=== PATIENT | female | born 1955 | race Caucasian/White ===

== ENCOUNTER 2020-09-17 12:03 | Outpatient (CLI) | payer MEDICARE, SELFPAY ==
[2020-09-17 13:03] LABS: Eosinophils Percent Auto 0.5 % (0-4.4); Hematocrit 37.4 % (37.0-47.0); Hemoglobin 12.1 g/dL (12.0-15.0); Immature Granulocyte Absolute 0.01 K/mm3 (0.00-0.031); Immature Granulocyte Percent A 0.3 % (0-0.5); Lymphocytes Absolute Auto 0.98 K/mm3 (0.9-3.2); Lymphocytes Percent Auto 26.3 % (18.3-44.2); Mean Corpuscular HGB Conc 32.4 g/dl (32-36); Mean Corpuscular Hemoglobin 30.7 pg (26-34); Mean Corpuscular Volume 94.9 fl (80-100); Mean Platelet Volume 9.4 fl (7.4-10.4); Monocytes Absolute Auto 0.4 K/mm3 (0.1-0.6); Monocytes Percent Auto 9.7 % (2.6-8.5); Neutrophils Absolute Auto 2.4 K/mm3 (1.3-6.7); Neutrophils Percent Auto 63.2 % (45.5-73.1); Platelet Count Result 182 k/mm3 (150-375); Red Blood Count 3.94 M/mm3 (4.2-5.4); Red Cell Distribution Width 13.5 % (11.5-14.5); White Blood Count 3.7 K/mm3 (4.5-10.0)
[2020-09-17 13:14] LABS: Alanine Aminotransferase 12 U/L (4-35); Alkaline Phosphatase 61 U/L (38-126); Anion Gap 5 mmol/L (8-16); Aspartate Amino Transferase 24 U/L (14-36); Bilirubin,Total 0.2 mg/dL (0.2-1.3); Blood Urea Nitrogen 13 mg/dL (7-17); Calcium 8.9 mg/dL (8.4-10.2); Carbon Dioxide 26 mmol/L (22-30); Chloride 107 mmol/L (98-107); Cholesterol 168 mg/dL (0-200); Estimated Glomerular Filt Rate > 60; Glucose 101 mg/dL (65-105); HDL Direct 53 mg/dL; Potassium 4.7 mmol/L (3.4-5.0); Sodium 138 mmol/L (137-145); Triglycerides 151 mg/dL (<150)
[2020-09-17 13:25] LABS: LDL Cholesterol Direct 88 mg/dL
[2020-09-17 13:41] LABS: Vitamin D 25 Hydroxy 31.4 ng/mL
== END 2020-09-17 12:04 | disposition home or self-care (01) ==
PROVIDERS: PCP Internal Medicine; Visit Provider Clinical Nurse Specialist
DX: E61.1 Iron deficiency (principal); I10 Essential (primary) hypertension; I70.90 Unspecified atherosclerosis; E55.9 Vitamin D deficiency, unspecified
CPT/HCPCS: 36415; 80053; 80061; 82306; 85025

== ENCOUNTER 2020-09-30 16:20 | Outpatient (CLI) | payer MEDICARE, SELFPAY | END 2020-09-30 16:21 | disposition home or self-care (01) | LOC: ANHCOVIDVC 16:20 | PROVIDERS: PCP Internal Medicine | DX: Z23 Encounter for immunization (principal) | CPT/HCPCS: 0001A; 91300 ==

== ENCOUNTER 2020-10-05 15:36 | Outpatient (CLI) | payer MEDICARE, SELFPAY ==
--- NOTE | ~2020-10-05 | CT_ITS ---
EXAMINATION: CT diagnostic chest w con DATE: 10/05/2020 16:16 INDICATION: Solitary pulmonary nodule TECHNIQUE: Computed tomography (CT) of the chest was performed with 75 cc Omnipaque 350 intravenous c ontrast. Automated exposure control and iterative reconstruction technique were employed. Exam dose: 163.79 mGy-cm total exam DLP. COMPARISON: September 17, 2017 portable AP chest FINDINGS: Mild emphysematous changes are noted. No hilar or mediastinal mass lesion or lymphadenopathy. No thoracic aortic aneurysm or dissection. There is a calcified middle lobe pulmonary granuloma. No suspicious pulmonary mass lesion is evident. No pulmonary infiltrate or consolidation. Normal heart size. No pericardial or pleural effusion. Status post cholecystectomy. Diffuse hepatic steatosis. Surgical clips, left upper quadrant. Normal morphology of the adrenal glands. IMPRESSION: Old pulmonary granulomatous disease Emphysema Status post cholecystectomy Hepatic steatosis Reviewed, dictated and finalized at [facility]. Reviewed, dictated and finalized at [facility].
== END 2020-10-05 15:37 | disposition home or self-care (01) ==
PROVIDERS: PCP Internal Medicine; Visit Provider Clinical Nurse Specialist
DX: R91.1 Solitary pulmonary nodule (principal); K76.0 Fatty (change of) liver, not elsewhere classified; J43.9 Emphysema, unspecified; Z90.49 Acquired absence of other specified parts of digestive tract
CPT/HCPCS: 71260; Q9967

== ENCOUNTER → 2020-10-09 01:14 | Outpatient (CLI) | payer MEDICARE, SELFPAY ==
[2020-10-09 19:13] LABS: SARS-CoV-2 RNA PCR Negative
== END ==
PROVIDERS: PCP Internal Medicine; Visit Provider Surgery
DX: Z01.812 Encounter for preprocedural laboratory examination (principal); Z20.822 Contact with and (suspected) exposure to COVID-19
CPT/HCPCS: C9803; U0003; U0005

== ENCOUNTER 2020-10-12 01:46 | Day surgery (SDC) | payer MEDICARE, SELFPAY ==
[2020-10-06 09:20] VITALS: BMI 25.7
--- NOTE | 2020-10-12 11:42 | ECG_ITS ---
Measurements Intervals Helper Rate: 65 P: 50 MT: 126 QRS: 74 QRSD: 75 T: 69 QT: 388 QTc: 406 Interpretive Statements SINUS RHYTHM BASELINE ARTIFACT- II, III, AVR, AVF NORMAL ECG Electronically Signed On 10-12-2020 13:57:40 CDT by Kristopher Locke D.O.
--- NOTE | 2020-10-12 11:50 | PM.HPGS ---
History of Present Illness History of Present Illness Consent: Risks, benefits, and alternatives of removal of a catherine-cath under sedation wiht local anesthesia have been discussed and questions answered. Patient agrees to proceed with procedure. Chief complaint: STEVEN Narrative: Hunter Garcia is a 65 year old female who has had a Port-A-Cath for several years due to need for transfusions and iron infusions because of GI blood loss related to GI hemangiomas. She apparently has had multiple colonic angiodysplasias which have been cauterized. Her last colonoscopy was about a year ago. Last time she had the poor use was about a year ago. She states she did realize that the port needs to be flushed every 4-6 weeks so it has not for some time period Review of Systems Constitutional: Constitutional: Reports no additional constitutional complaints, Reports fatigue and Denies malaise Eyes: Eyes: Denies change in vision and Denies loss of vision ENT: Reports Normal hearing present, Denies change in voice, Denies dizziness, Denies hoarseness and Denies sore throat Cardiovascular: Cardiovascular: Denies chest pain, Denies leg edema and Denies dyspnea Respiratory: Respiratory: Denies cough, Denies dyspnea and Denies wheezing Gastrointestinal: Gastrointestinal: Denies hematochezia, Denies change in bowel habits and Denies heartburn Genitourinary: Genitourinary: Denies urinary frequency and Denies urinary incontinence Neurologic: Reports Normal hearing present, Denies confusion, Denies dizziness, Denies loss of vision, Denies memory loss and Denies seizure-like activity Psychiatric: Psychiatric: Denies confusion, Denies depression and Denies memory loss Endocrine: Endocrine: Denies cold intolerance and Reports fatigue Hematologic/Lymphatic: Hematologic/Lymphatic: Denies easy bleeding, Denies easy bruising and Reports other (History of recurrent anemia) Comments: Needed an iron infusions to help with her anemia. Therefore had a port placed several years back. Has not had to have any transfusions or iron infusions over the last year. Allergic/Immunologic: Allergic/Immunologic: Denies wheezing PMFSH Past Medical History Medical History Anal disorder 1994 Atherosclerosis Blood clotting disorder Carotid stenosis Cholecystectomy planned 1977 Chronic pain Diarrhea Dizziness Femoral artery stenosis Fibromyalgia H/O fracture H/O one miscarriage Heart disease Hemorrhoids Hernia 2001 History of nervous system or sense organ disease Hypertension Insomnia Iron deficiency Kidney stones Major depressive disorder Mycosis fungoides Osteoarthritis Skin disorder Stroke TIA (transient ischemic attack) Vertigo Surgical History Surgical History H/O elbow surgery 1983 H/O shoulder surgery 1976 H/O wrist surgery 1984 H/O: hysterectomy 1994 History of atherectomy 1979 History of hip replacement Previous back surgery Plates and screws in back Status post femoropopliteal bypass surgery Family History Family History Mother Family history of chronic obstructive pulmonary disease Sibling Breast cancer Cancer of kidney Other Family history of malignant neoplasm Hypertension Social History Social History Smoking packs per day: 1 Smoking cigarettes per day: 20.0 Years smoked: 20 Smoking pack-years: 20.00 Smoking status: Former smoker Tobacco type: cigarettes Smoking end date: 07/23/13 Alcohol intake: current Substance use: never Living arrangements: alone Spiritual care concerns: No Meds Home Medications and Allergies Home Medications Medication Instructions Recorded Confirmed Type aspirin 81 mg tablet,delayed 81 mg PO DAILY 07/14/19 10/12/20 History release
[2020-10-12] MEDS: LACTATED RINGERS 1,000 ML 30 ML IV CONT (12:00)
--- NOTE | 2020-10-12 12:14 | WPDANESEPPF ---
Anes - Initial Pre Proc Eval Procedure: Operation Date: 10/12/20 13:30 Proposed Procedures p Removal Lara Cath - Atif Sims MD Date/Time: 10/12/20 12:14 Surgeon: Atif Sims MD Pre Op Diagnosis: STEVEN Patient Data Age: 65 Gender: F Height: 1.59 m Weight: 65 kg Allergies Allergy/AdvReac Type Severity Reaction Status Date / Time METOCLOPRAMIDE HCL AdvReac Severe ANXIETY Uncoded 10/12/20 11:32 Home Medications Medication Instructions Recorded Confirmed Type aspirin 81 mg tablet,delayed 81 mg PO DAILY 07/14/19 10/12/20 History release trazodone 50 mg tablet 50 mg PO HS tablet 10/21/19 10/12/20 History clopidogrel 75 mg tablet 75 mg PO DAILY #90 tablet 09/02/20 10/12/20 Rx cyclobenzaprine 10 mg tablet 10 mg PO TID PRN #30 tablet 09/23/20 10/12/20 Rx lisinopril 20 mg tablet 20 mg PO DAILY #90 tablet 09/23/20 10/12/20 Rx lorazepam 0.5 mg tablet 0.5 mg PO TID PRN 09/23/20 10/12/20 History paroxetine HCl 20 mg tablet 40 mg PO DAILY tablet 09/23/20 10/12/20 History promethazine 25 mg tablet 25 mg PO DAILY PRN #30 tablet 09/23/20 10/12/20 Rx Patient hx anesthesia problems: none Family hx anesthesia problems: none PMFSH Past Medical History Medical History (Updated 09/23/20 @ 15:42 by DANTE IslasP-C) Anal disorder 1994 Atherosclerosis Blood clotting disorder Carotid stenosis Cholecystectomy planned 1977 Chronic pain Diarrhea Dizziness Femoral artery stenosis Fibromyalgia H/O fracture H/O one miscarriage Heart disease Hemorrhoids Hernia 2002 History of nervous system or sense organ disease Hypertension Insomnia Iron deficiency Kidney stones Major depressive disorder Mycosis fungoides Osteoarthritis Skin disorder Stroke TIA (transient ischemic attack) Vertigo Surgical History Surgical History (Updated 07/14/19 @ 15:07 by Marga Bearden [facility]) H/O elbow surgery 1983 H/O shoulder surgery 1976 H/O wrist surgery 1984 H/O: hysterectomy 1994 History of atherectomy 1979 History of hip replacement Previous back surgery Plates and screws in back Status post femoropopliteal bypass surgery Family History Family History (Updated 07/11/19 @ 12:20 by Marga Bearden [facility]) Mother Family history of chronic obstructive pulmonary disease Sibling Breast cancer Cancer of kidney Other Family history of malignant neoplasm Hypertension Social History Social History (Updated 09/23/20 @ 13:16 by Marga Bearden [facility]) Smoking packs per day: 1 Smoking cigarettes per day: 20.0 Years smoked: 20 Smoking pack-years: 20.00 Smoking status: Former smoker Tobacco type: cigarettes Smoking end date: 07/23/13 Alcohol intake: current Substance use: never Living arrangements: alone Spiritual care concerns: No Anes - Eval Final PreProcedure Day of Procedure 10/12/20 12:14 Patient weight: overweight Heart: regular rate and rhythm Lungs: clear to auscultation and normal air movement Airway: Mallampati scale class II and special considerations poor dentition Neurological: alert and oriented Last oral intake: >/= 8 hours ASA classification: III Emergent: no Anesthetic plan: proceed Anesthesia type and monitoring: general GIVS and standard monitoring Informed Consent: The patient's anesthetic plan and its attendant risks and benefits were discussed with the patient/family/POA. Questions were solicited and answers provided to the satisfaction of the patient/family/POA.
[2020-10-12 12:15] VITALS: BP 104/59; PULSE 66; RESP 16; TEMP 36.8; O2SAT 97
--- NOTE | 2020-10-12 12:56 | WPDHPUPDATE1 ---
History and Physical Update Update Date/Time: 10/12/20 12:56 History and Physical has been reviewed, including an updated exam of the patient. There are NO changes in the patient's condition. Risks, benefits, and alternatives have been discussed and questions answered. Patient agrees to proceed with procedure.
[2020-10-12 13:56] VITALS: BP 94/56; PULSE 64; RESP 18; O2SAT 98
--- NOTE | 2020-10-12 13:58 | P.OP_ITS ---
Procedure Note - Detailed Date of procedure: 10/12/20 Pre-op diagnosis: STEVEN Indwelling Port-A-Cath Post-op diagnosis: same Procedure performed: Removal of Port-A-Cath Description of procedure: Prior to the procedure the patient was seen in the holding area and the area of proposed surgery was marked. All questions were answered and the patient wished to proceed with removal of the Port-A-Cath. The patient was brought to the operating room and placed supine. Nurse bilingual loan processor established monitored anesthesia care with some IV sedation The entire right neck, chest, and shoulder were prepped with chlorhexidine. The area was draped off. Time-out was performed confirming patient and site of surgery. Following this a 15 blade knife was used to make incision directly on the scar from the previous port placement. This was done after infiltrating local anesthetic into the area of and inferior to the scar and into the area of the pocket containing the port to some degree using 1% xylocaine with epinep hrine. Following this we carefully dissected down to the junction of the port and catheter. Bovie cautery with needle-tip was used to carefully incise the capsule around the port and free up the scar tissue around the junction of the port and catheter. Two Prolene sutures that were holding the port to the underlying fascia were carefully excised with a 15 blade knife and mosquito hemostats. Following this the port was brought up and out of the pocket. Then watching the patient's respirations I carefully removed the catheter in one smooth pull while applying pressure in the lower right neck area at the catheter exit site as the patient was breathing out. Pressure was held for 1 minute. I used Bovie cautery on some the subcutaneous tissues as we waited for good clotting. Again hemostasis was checked in the wound using Bovie cautery for superficial hemostasis in the subcutaneous tissues. Following this closure was obtained with 2 layers. I used buried subcutaneous sutures of 3-0 Vicryl in the subcutaneous layer followed by a running subcuticular closure of 4-0 Monocryl on the skin. Patient tolerated the procedure well. Estimated blood loss was 2 cc Sponge, needle, and instrument counts were correct at the end the procedure and patient was taken to the outpatient recovery area in good condition. Implants: none Anesthesia: MAC and local ( 2% xylocaine with epinephrine) Surgeon: Atif Sims MD Records Technician: SOFIA Ceballos, OR 1st assist Estimated blood loss (mL): 2 Drains: No Packing: No Pathology: none sent Complications: No immediate complications Condition: stable Disposition: other ( outpatient recovery area) Findings: unremarkable port and catheter that were intact.
[2020-10-12 14:15] VITALS: BP 99/77; PULSE 67; RESP 18; O2SAT 97
[2020-10-12 14:30] VITALS: BP 124/54; PULSE 71; RESP 18
== END 2020-10-12 14:39 | disposition home or self-care (01) ==
PROVIDERS: PCP Internal Medicine; Visit Provider Surgery
PROC: (CPT 36589; principal; 2020-10-12 13:30)
DX: Z45.2 Encounter for adjustment and management of vascular access device (principal); D50.9 Iron deficiency anemia, unspecified; I11.9 Hypertensive heart disease without heart failure; I25.10 Atherosclerotic heart disease of native coronary artery without angina pectoris; M79.7 Fibromyalgia; M19.90 Unspecified osteoarthritis, unspecified site; F41.8 Other specified anxiety disorders; E55.9 Vitamin D deficiency, unspecified; Z86.73 Personal history of transient ischemic attack (TIA), and cerebral infarction without residual deficits; Z87.891 Personal history of nicotine dependence; Z79.02 Long term (current) use of antithrombotics/antiplatelets; Z79.82 Long term (current) use of aspirin
CPT/HCPCS: 36590; 93005; C9803; J2250; J2704; J7120; U0003; U0005

== ENCOUNTER 2020-10-21 15:49 | Outpatient (CLI) | payer MEDICARE, SELFPAY | END 2020-10-21 15:50 | disposition home or self-care (01) | LOC: ANHCOVIDVC 15:53 | PROVIDERS: PCP Internal Medicine | DX: Z23 Encounter for immunization (principal) | CPT/HCPCS: 0002A; 91300 ==

== ENCOUNTER 2020-10-26 15:50 | Outpatient (CLI) | payer MEDICARE, SELFPAY ==
--- NOTE | ~2020-10-26 | MR_ITS ---
EXAMINATION: MR lumbar spine wo con DATE: 10/26/2020 17:04 INDICATION: Lumbago. TECHNIQUE: Magnetic resonance imaging (MRI) of the lumbar spine was performed without intravenous con trast. Sequences included sagittal T2-weighted FSE, sagittal STIR FSE, sagittal T1-weighted FSE, and axial T2-weighted FSE. COMPARISON: Lumbar spine radiographs 06/12/16 FINDINGS: There is 4 degrees dextrocurvature of lumbar spine. There is 3 mm retrolisthesis of L2 on L 3. There is mild chronic anterior wedging of T11 vertebral body. There are changes of posterior fusio n procedure at L4-L5 with pedicle screws. There are changes of anterior fusion procedure at L4-L5 wit h interbody device. There is mildly decreased disc height at L2-L3 and moderately decreased disc heig ht at L3-L4 and L5-S1. The distal spinal cord signal intensity is normal. The conus medullaris is at L1. The following disc levels are specifically discussed: L1-L2: The disc does not extend beyond the endplate margin. There is mild bilateral facet joint osteo arthritis. There is no neural foraminal stenosis. There is no central canal stenosis. L2-L3: The disc is bulging. There is moderate bilateral facet joint osteoarthritis. There is mild mitzi ateral neural foraminal stenosis. There is mild central canal stenosis. L3-L4: The disc is bulging and has an annular fissure. There is severe bilateral facet joint osteoart hritis. There is moderate bilateral neural foraminal stenosis. There is mild central canal stenosis w ith posterior decompression. L4-L5: There is mild bilateral facet joint hypertrophy. There is no neural foraminal stenosis. There is no central canal stenosis. L5-S1: The disc is bulging. There is severe right and moderate left facet joint osteoarthritis. There is moderate right and mild left neural foraminal stenosis. There is no central canal stenosis. IMPRESSION: 1. Moderate lumbar spondylosis. 2. Anterior and posterior fusion procedures at L4-L5. Reviewed, dictated and finalized at [facility].
== END 2020-10-26 15:51 | disposition home or self-care (01) ==
PROVIDERS: PCP Internal Medicine; Visit Provider Nurse Practitioner Family
DX: M47.896 Other spondylosis, lumbar region (principal); Z98.1 Arthrodesis status
CPT/HCPCS: 72148

== ENCOUNTER 2021-09-27 09:24 | Outpatient (CLI) | payer MEDICARE, SELFPAY ==
[2021-09-27 09:59] LABS: Eosinophils Percent Auto 0.7 % (0-4.4); Hematocrit 36.4 % (37.0-47.0); Hemoglobin 10.2 g/dL (12.0-15.0); Immature Granulocyte Absolute 0.03 K/mm3 (0.00-0.031); Immature Granulocyte Percent A 0.5 % (0-0.5); Lymphocytes Percent Auto 20.4 % (18.3-44.2); Mean Corpuscular Hemoglobin 22.3 pg (26-34); Mean Corpuscular Volume 79.5 fl (80-100); Mean Platelet Volume 9.2 fl (7.4-10.4); Monocytes Absolute Auto 0.5 K/mm3 (0.1-0.6); Monocytes Percent Auto 9.2 % (2.6-8.5); Neutrophils Absolute Auto 4.1 K/mm3 (1.3-6.7); Neutrophils Percent Auto 69.2 % (45.5-73.1); Platelet Count Result 179 k/mm3 (150-375); Red Blood Count 4.58 M/mm3 (4.2-5.4); Red Cell Distribution Width 21.3 % (11.5-14.5); White Blood Count 5.9 K/mm3 (4.5-10.0)
[2021-09-27 10:11] LABS: Alanine Aminotransferase 14 U/L (4-35); Albumin Level 4.3 g/dL (3.5-5.1); Alkaline Phosphatase 73 U/L (38-126); Anion Gap 7 mmol/L (8-16); Aspartate Amino Transferase 28 U/L (14-36); Bilirubin,Total 0.2 mg/dL (0.2-1.3); Blood Urea Nitrogen 13 mg/dL (7-17); Carbon Dioxide 26 mmol/L (22-30); Chloride 109 mmol/L (98-107); Estimated Glomerular Filt Rate > 60; Glucose 117 mg/dL (65-110); Potassium 4.3 mmol/L (3.4-5.0); Sodium 142 mmol/L (137-145)
[2021-09-27 10:34] LABS: Anisocytosis 1+ (NORMAL); Ovalocytes 1+ (NORMAL); Platelet Estimate Adequate (Adequate)
[2021-09-27 11:09] LABS: Vitamin D 25 Hydroxy 28.5 ng/mL
[2021-09-27 11:25] LABS: Ferritin 5.67 ng/mL (11.1-264)
== END 2021-09-27 09:25 | disposition home or self-care (01) ==
PROVIDERS: PCP Internal Medicine; Visit Provider Clinical Nurse Specialist
DX: D64.9 Anemia, unspecified (principal); E55.9 Vitamin D deficiency, unspecified
CPT/HCPCS: 36415; 80053; 82306; 82728; 85025

== ENCOUNTER 2021-11-09 00:42 | Day surgery (SDC) | payer MEDICARE, SELFPAY ==
[2021-10-31 12:55] VITALS: BMI 25.2
--- NOTE | 2021-11-09 09:12 | WPDANESEPPF ---
Anes - Initial Pre Proc Eval Procedure: Operation Date: 11/09/21 12:30 Proposed Procedures p Esophagogastroduodenoscopy & Colonoscopy - Diogo Noble MD Date/Time: 11/09/21 09:12 Surgeon: Diogo Noble MD Pre Op Diagnosis: STEVEN, AVM Patient Data Age: 66 Gender: F Height: 1.59 m Weight: 63.5 kg Allergies Allergy/AdvReac Type Severity Reaction Status Date / Time No Known Allergies Allergy Verified 11/09/21 11:26 Home Medications Medication Instructions Recorded Confirmed Type aspirin 81 mg tablet,delayed 81 mg PO DAILY 07/14/19 10/31/21 History release trazodone 50 mg tablet 50 mg PO HS tablet 10/21/19 10/31/21 History lorazepam 0.5 mg tablet 0.5 mg PO TID PRN 09/23/20 10/31/21 History albuterol sulfate 90 mcg/actuation 2 inh INHALATION Q4H PRN #8.5 g 01/25/21 10/31/21 Rx aerosol inhaler promethazine 25 mg tablet 25 mg PO DAILY PRN #30 tablet 09/07/21 10/31/21 Rx clopidogrel 75 mg tablet See Rx Instructions .ROUTE 10/27/21 10/31/21 Rx .COMPLEX #90 tablet paroxetine HCl 10 mg PO DAILY 10/31/21 10/31/21 History paroxetine HCl 40 mg PO DAILY 10/31/21 10/31/21 History Patient hx anesthesia problems: none Family hx anesthesia problems: none Results Review: All pre-operative results and documents have been reviewed as part of the pre-operative evaluation. [facility] Past Medical History Medical History Anal disorder 1994 Anemia Atherosclerosis AVM (arteriovenous malformation) AVM (arteriovenous malformation) of colon Blood clotting disorder Carotid stenosis Cholecystectomy planned 1977 Chronic pain Diarrhea Dizziness Encounter for venous access device care Port or catheter 2019 Femoral artery stenosis Bypass 2011 3 Stents in right leg Fibromyalgia GERD (gastroesophageal reflux disease) GI bleeding Secondary to AVMs H/O fracture H/O one miscarriage Heart disease Hemorrhoids Hernia 2001 History of nervous system or sense organ disease Histrionic behavior Hypertension (Unknown) Insomnia Iron deficiency Iron deficiency anemia Kidney stones Major depressive disorder Mycosis fungoides Osteoarthritis Pancreatitis Peripheral arterial disease with history of revascularization PVD (peripheral vascular disease) Rectal cancer Chemo and radiation [id number] Skin disorder Stroke TIA (transient ischemic attack) Vertigo Surgical History Surgical History H/O elbow surgery Right 1983 H/O shoulder surgery Right 1976 H/O wrist surgery 1984 H/O: hysterectomy 1994 History of atherectomy 1979 History of fundoplication For Chaves's Esophagus 2003 History of hip replacement Right 2012 Previous back surgery Plates and screws in back S/P insertion of iliac artery stent 02/2017 S/P peripheral artery angioplasty with stent placement Status post femoropopliteal bypass surgery Family History Family History Mother Family history of chronic obstructive pulmonary disease Sibling Breast cancer Cancer of kidney Grandparent Stomach cancer Other Family history of malignant neoplasm Hypertension Social History Social History Smoking packs per day: 1 Smoking cigarettes per day: 20.0 Years smoked: 20 Smoking pack-years: 20.00 Smoking status: Former smoker Tobacco type: cigarettes Smoking end date: 07/23/13 Alcohol intake: current Alcohol use details: Pt drinks occasionally. Substance use: current Substance use type: marijuana Other substance usage details: MEDICAL CARD- SMOKES-USES FOR PAIN EVERY DAY SEVERAL TIMES A DAY Living arrangements: with family Spiritual care concerns: No Anes - Eval Final PreProcedure Day of Procedure 11/09/21 09:12 Patient weight: normal Heart: regular rate
[2021-11-09] MEDS: LACTATED RINGERS 1,000 ML 150 ML IV CONT (11:15)
[2021-11-09 11:27] VITALS: BP 178/79; PULSE 72; RESP 20; TEMP 36.8; O2SAT 100
[2021-11-09] MEDS: PROMETHAZINE HCL 25 MG/ML AMPUL 12.5 MG IV PUSH (11:40)
--- NOTE | 2021-11-09 12:11 | PM.HPGS ---
History of Present Illness History of Present Illness Consent: Risks, benefits, and alternatives have been discussed and questions answered. Patient agrees to proceed with procedure. Chief complaint: STEVEN, AVM Narrative: Hunter Garcia is a 66 year old female with steven without overt gib on asa and plavix. She has remote anal cancer ~ 30 years ago treated with chemotherapy and radiation, also pancreatitis and chronic GI issues, she was told in the past that had bleeding from AVM and treated with colonoscopy 2-3 years ago, last EGD in record was normal in 2018 from [facility] Review of Systems Constitutional: Constitutional: Denies headache(s) and Denies weakness Eyes: Eyes: Denies blurry vision ENT: Reports Normal hearing present, Denies headache(s) and Denies neck pain Cardiovascular: Cardiovascular: Denies chest pain and Denies dyspnea Respiratory: Respiratory: Denies dyspnea Gastrointestinal: Gastrointestinal: Reports no additional gastrointestinal complaints Genitourinary: Genitourinary: Denies dysuria Musculoskeletal: Musculoskeletal: Denies neck pain Integumentary/Breasts: Skin/Breast: Denies dry skin Neurologic: Reports Normal hearing present, Denies headache(s) and Denies weakness Psychiatric: Psychiatric: Denies anxiety Endocrine: Endocrine: Denies change in body appearance Hematologic/Lymphatic: Hematologic/Lymphatic: Denies easy bleeding Allergic/Immunologic: Allergic/Immunologic: Denies urticaria PMFSH Past Medical History Medical History Anal disorder 1994 Anemia Atherosclerosis AVM (arteriovenous malformation) AVM (arteriovenous malformation) of colon Blood clotting disorder Carotid stenosis Cholecystectomy planned 1977 Chronic pain Diarrhea Dizziness Encounter for venous access device care Port or catheter 2019 Femoral artery stenosis Bypass 2012 3 Stents in right leg Fibromyalgia GERD (gastroesophageal reflux disease) GI bleeding Secondary to AVMs H/O fracture H/O one miscarriage Heart disease Hemorrhoids Hernia 2002 History of nervous system or sense organ disease Histrionic behavior Hypertension (Unknown) Insomnia Iron deficiency Iron deficiency anemia Kidney stones Major depressive disorder Mycosis fungoides Osteoarthritis Pancreatitis Peripheral arterial disease with history of revascularization PVD (peripheral vascular disease) Rectal cancer Chemo and radiation [id number] Skin disorder Stroke TIA (transient ischemic attack) Vertigo Surgical History Surgical History H/O elbow surgery Right 1983 H/O shoulder surgery Right 1977 H/O wrist surgery 1984 H/O: hysterectomy 1994 History of atherectomy 1980 History of fundoplication For Chaves's Esophagus 2003 History of hip replacement Right 2012 Previous back surgery Plates and screws in back S/P insertion of iliac artery stent 02/2017 S/P peripheral artery angioplasty with stent placement Status post femoropopliteal bypass surgery Family History Family History Mother Family history of chronic obstructive pulmonary disease Sibling Breast cancer Cancer of kidney Grandparent Stomach cancer Other Family history of malignant neoplasm Hypertension Social History Social History Smoking packs per day: 1 Smoking cigarettes per day: 20.0 Years smoked: 20 Smoking pack-years: 20.00 Smoking status: Former smoker Tobacco type: cigarettes Smoking end date: 07/23/13 Alcohol intake: current Alcohol use details: Pt drinks occasionally. Substance use: current Substance use type: marijuana Other substance usage details: MEDICAL CARD- SMOKES-USES FOR PAIN EVERY DAY SEVERAL TIMES A DAY Living arrangements: with family Spiritual care concerns: No Meds H
--- NOTE | 2021-11-09 12:29 | SUR.OPER ---
EGD ENDED AT 1223, COLONOSCOPY BEGAN AT 1229.
[2021-11-09 12:57] VITALS: BP 166/87; PULSE 74; RESP 21; O2SAT 100
[2021-11-09 13:07] VITALS: BP 177/82; PULSE 73; RESP 17; O2SAT 98
[2021-11-09 13:17] VITALS: BP 172/79; PULSE 70; RESP 19; O2SAT 97
== END 2021-11-09 13:35 | disposition home or self-care (01) ==
PROVIDERS: PCP Internal Medicine; Visit Provider Internal Medicine Gastroenterology
PROC: 0DJ08ZZ Inspection of Upper Intestinal Tract, Via Natural or Artificial Opening Endoscopic (ICD-10-PCS; CPT 43235; principal; 2021-11-09 12:30)
DX: D50.0 Iron deficiency anemia secondary to blood loss (chronic) (principal); D12.0 Benign neoplasm of cecum; D12.2 Benign neoplasm of ascending colon; Q27.33 Arteriovenous malformation of digestive system vessel; Z85.048 Personal history of other malignant neoplasm of rectum, rectosigmoid junction, and anus; K21.9 Gastro-esophageal reflux disease without esophagitis; M79.7 Fibromyalgia; I11.9 Hypertensive heart disease without heart failure; F32.9 Major depressive disorder, single episode, unspecified; I73.9 Peripheral vascular disease, unspecified; Z86.73 Personal history of transient ischemic attack (TIA), and cerebral infarction without residual deficits; Z92.21 Personal history of antineoplastic chemotherapy; Z92.3 Personal history of irradiation; Z95.820 Peripheral vascular angioplasty status with implants and grafts; Z79.82 Long term (current) use of aspirin; Z79.02 Long term (current) use of antithrombotics/antiplatelets; Z79.51 Long term (current) use of inhaled steroids; Z87.891 Personal history of nicotine dependence; F12.90 Cannabis use, unspecified, uncomplicated
CPT/HCPCS: 45385; 45381; 45388; 43270; 88305; J2550; J2704; J7120

== ENCOUNTER 2023-02-23 10:07 | Outpatient (CLI) | payer MEDICARE, SELFPAY ==
[2023-02-23 14:23] LABS: Eosinophils Percent Auto 0.4 % (0-4.4); Hematocrit 41.5 % (37.0-47.0); Hemoglobin 12.6 g/dL (12.0-15.0); Immature Granulocyte Absolute 0.01 K/mm3 (0.00-0.031); Immature Granulocyte Percent A 0.2 % (0-0.5); Immature Reticulocyte Fraction 19.4 % (3.0-15.9); Lymphocytes Absolute Auto 1.18 K/mm3 (0.9-3.2); Lymphocytes Percent Auto 22.9 % (18.3-44.2); Mean Corpuscular HGB Conc 30.4 g/dl (32-36); Mean Corpuscular Hemoglobin 28.2 pg (26-34); Mean Corpuscular Volume 92.8 fl (80-100); Mean Platelet Volume 9.8 fl (7.4-10.4); Monocytes Absolute Auto 0.5 K/mm3 (0.1-0.6); Monocytes Percent Auto 9.5 % (2.6-8.5); Neutrophils Absolute Auto 3.5 K/mm3 (1.3-6.7); Platelet Count Result 221 k/mm3 (150-375); Red Blood Count 4.47 M/mm3 (4.2-5.4); Red Cell Distribution Width 17.1 % (11.5-14.5); Reticulocyte Hemoglobin Conten 30.3 pg (28.2-35.7); Reticulocyte Percent 2.15 % (0.7-4.3); White Blood Count 5.2 K/mm3 (4.5-10.0)
[2023-02-23 14:37] LABS: Alanine Aminotransferase 19 U/L (6-35); Albumin Level 4.3 g/dL (3.5-5.1); Alkaline Phosphatase 62 U/L (38-126); Anion Gap 5 mmol/L (8-16); Aspartate Amino Transferase 50 U/L (14-36); Bilirubin,Total 0.2 mg/dL (0.2-1.3); Blood Urea Nitrogen 11 mg/dL (7-17); Carbon Dioxide 28 mmol/L (22-30); Chloride 103 mmol/L (98-107); Cholesterol 179 mg/dL (0-200); Estimated Glomerular Filt Rate > 60; Glucose 95 mg/dL (65-110); HDL Direct 55 mg/dL; Potassium 4.2 mmol/L (3.4-5.0); Sodium 136 mmol/L (137-145); Triglycerides 174 mg/dL (<150)
[2023-02-23 14:48] LABS: LDL Cholesterol Direct 86 mg/dL
[2023-02-23 15:07] LABS: Iron 42 ug/dL (37-170); Vitamin D 25 Hydroxy 34.1 ng/mL
[2023-02-23 15:11] LABS: Percent Iron Saturation 9 % (20-50)
[2023-02-23 15:41] LABS: Ferritin 7.08 ng/mL (11.1-264)
== END 2023-02-23 10:08 | disposition home or self-care (01) ==
LOC: ANHGOSHLAB 10:08
PROVIDERS: PCP Internal Medicine; Visit Provider Clinical Nurse Specialist
DX: D64.9 Anemia, unspecified (principal); I10 Essential (primary) hypertension; E55.9 Vitamin D deficiency, unspecified; G47.00 Insomnia, unspecified
CPT/HCPCS: 36415; 80053; 80061; 82306; 82728; 83540; 83550; 84443; 85025; 85046

== ENCOUNTER 2023-03-09 14:22 | Outpatient (CLI) | payer MEDICARE, SELFPAY ==
--- NOTE | ~2023-03-09 | CT_ITS ---
EXAMINATION:CT diagnostic chest w con DATE: 03/09/2023 14:51 INDICATION: Solitary pulmonary nodule. TECHNIQUE: Computed tomography (CT) of the chest was performed with 75 mL Omnipaque 350 intravenous c ontrast. Automated exposure control and iterative reconstruction technique were employed. The dose-le ngth product (DLP) was 144.83 mGy-cm. COMPARISON: Chest CT 10/05/2020 FINDINGS: There is mild emphysema. There is a 5 mm nodule in right middle lobe that previously measur ed 3 mm. There is a stable 6 mm nodule at the minor fissure. There is a stable 4 mm nodule at left ma sirisha fissure. A calcified right lung nodule is consistent with old granulomatous disease. There is mil d atelectasis bilaterally. No pleural effusion. The heart size is normal. No pericardial effusion. Th ere are changes of cholecystectomy. Aortic atherosclerosis is noted. There are surgical clips around the gastroesophageal junction. There is moderate thoracic and cervical spondylosis. IMPRESSION: 1. Worsened 5 mm nodule in right middle lobe, probably benign. Noncontrast low-dose chest CT is recom mended in 6 months. 2. Mild emphysema. Reviewed, dictated and finalized at location [facility]. IMPRESSION: 1. Worsened 5 mm nodule in right middle lobe, probably benign. Noncontrast low- dose chest CT is recommended in 6 months. 2. Mild emphysema.
== END 2023-03-09 14:23 | disposition home or self-care (01) ==
PROVIDERS: PCP Internal Medicine; Visit Provider Clinical Nurse Specialist
DX: R91.1 Solitary pulmonary nodule (principal); R63.4 Abnormal weight loss; Z72.0 Tobacco use; J43.9 Emphysema, unspecified
CPT/HCPCS: 71260; Q9967

== ENCOUNTER 2023-04-06 13:52 | Outpatient (CLI) | payer MEDICARE, SELFPAY ==
[2023-04-06 14:41] LABS: Alanine Aminotransferase 18 U/L (6-35); Albumin Level 4.2 g/dL (3.5-5.1); Alkaline Phosphatase 66 U/L (38-126); Amylase 85 U/L (30-110); Aspartate Amino Transferase 34 U/L (14-36); Bilirubin,Total 0.4 mg/dL (0.2-1.3); Lipase 77 U/L (23-300)
== END 2023-04-06 13:53 | disposition home or self-care (01) ==
PROVIDERS: PCP Internal Medicine; Visit Provider Internal Medicine Gastroenterology
DX: R63.4 Abnormal weight loss (principal); K21.9 Gastro-esophageal reflux disease without esophagitis; R11.0 Nausea
CPT/HCPCS: 36415; 80076; 82150; 83690

== ENCOUNTER 2023-04-11 00:45 | Day surgery (SDC) | payer MEDICARE, SELFPAY ==
[2023-04-04 11:34] VITALS: BMI 38.7
[2023-04-11] MEDS: LACTATED RINGERS 1,000 ML 150 ML IV CONT (08:52)
[2023-04-11 08:55] VITALS: BP 140/91; PULSE 116; RESP 18; TEMP 36.6; O2SAT 96
--- NOTE | 2023-04-11 09:25 | WPDANESEPPF ---
Anes - Initial Pre Proc Eval Procedure: Operation Date: 04/11/23 10:00 Proposed Procedures p Esophagogastroduodenoscopy EGD - Diogo Noble MD Date/Time: 04/11/23 09:25 Surgeon: Diogo Noble MD Pre Op Diagnosis: Nausea, abnormal weight loss Patient Data Age: 67 Gender: F Height: 1.59 m Weight: 51 kg Last Vital Signs Temp 97.8 F 04/11/23 08:55 Pulse 116 H 04/11/23 08:55 Resp 18 04/11/23 08:55 BP 140/91 H 04/11/23 08:55 Pulse Ox 96 04/11/23 08:55 O2 Del Method Room Air 04/11/23 08:55 Allergies Allergy/AdvReac Type Severity Reaction Status Date / Time No Known Allergies Allergy Verified 04/11/23 08:53 Home Medications Medication Instructions Recorded Confirmed Type aspirin 81 mg tablet,delayed 81 mg PO DAILY 07/14/19 04/04/23 History release (Adult Low Dose Aspirin) trazodone 50 mg tablet 50 mg PO HS 10/21/19 04/04/23 History clopidogrel 75 mg tablet See Rx Instructions .Route 02/21/22 04/11/23 Rx .COMPLEX #90 tabs cyclobenzaprine 5 mg tablet 5 mg PO BID PRN muscle spasm #30 02/23/23 04/04/23 Rx tabs promethazine 25 mg tablet See Rx Instructions .Route 02/23/23 04/11/23 Rx .COMPLEX #30 tabs paroxetine HCl 20 mg tablet 20 mg PO DAILY 04/04/23 04/04/23 History Patient hx anesthesia problems: none Family hx anesthesia problems: none Results Review: All pre-operative results and documents have been reviewed as part of the pre-operative evaluation. [facility] Past Medical History Medical History (Updated 03/29/23 @ 10:26 by Diogo Noble MD) Anal disorder 1994 Anemia Atherosclerosis AVM (arteriovenous malformation) AVM (arteriovenous malformation) of colon Blood clotting disorder Carotid stenosis Cholecystectomy planned 1977 Chronic pain Diarrhea Dizziness Encounter for venous access device care Port or catheter 2019 Femoral artery stenosis Bypass 2011 3 Stents in right leg Fibromyalgia GERD (gastroesophageal reflux disease) GI bleeding Secondary to AVMs H/O fracture H/O one miscarriage Heart disease Hemorrhoids Hernia 2002 History of nervous system or sense organ disease History of pancreatitis Histrionic behavior Hypertension (Unknown) Insomnia Iron deficiency Iron deficiency anemia Kidney stones Major depressive disorder Mycosis fungoides Osteoarthritis Pancreatitis Peripheral arterial disease with history of revascularization PVD (peripheral vascular disease) Rectal cancer Chemo and radiation [id number] Skin disorder Stroke TIA (transient ischemic attack) Vertigo Weight loss Surgical History Surgical History H/O elbow surgery Right 1983 H/O shoulder surgery Right 1976 H/O wrist surgery 1984 H/O: hysterectomy 1994 History of atherectomy 1979 History of fundoplication For Chaves's Esophagus 2003 History of hip replacement Right 2012 Previous back surgery Plates and screws in back S/P insertion of iliac artery stent 02/2017 S/P peripheral artery angioplasty with stent placement Status post femoropopliteal bypass surgery Family History Family History Mother Family history of chronic obstructive pulmonary disease Sibling Breast cancer Cancer of kidney Grandparent Stomach cancer Other Family history of malignant neoplasm Hypertension Social History Social History Smoking packs per day: 1 Smoking cigarettes per day: 20.0 Years smoked: 20 Smoking pack-years: 20.00 Smoking status: Former smoker Tobacco type: cigarettes Smoking end date: 07/23/13 Alcohol intake: current Alcohol use details: Pt drinks occasionally. Substance use: current Substance use type: marijuana Other substance usage details: OCC. Living arrangements: with family Spiritual care con
--- NOTE | 2023-04-11 10:03 | WPDHPUPDATE1 ---
History and Physical Update Update Date/Time: 04/11/23 10:03 History and Physical has been reviewed, including an updated exam of the patient. There are NO changes in the patient's condition. Risks, benefits, and alternatives have been discussed and questions answered. Patient agrees to proceed with procedure.
[2023-04-11 10:16] VITALS: BP 98/36; PULSE 72; RESP 19; O2SAT 100
[2023-04-11 10:26] VITALS: BP 149/79; PULSE 70; RESP 16; O2SAT 100
[2023-04-11 10:36] VITALS: BP 150/80; PULSE 68; RESP 20; O2SAT 100
== END 2023-04-11 10:56 | disposition home or self-care (01) ==
PROVIDERS: PCP Internal Medicine; Visit Provider Internal Medicine Gastroenterology
PROC: 0DJ08ZZ Inspection of Upper Intestinal Tract, Via Natural or Artificial Opening Endoscopic (ICD-10-PCS; CPT 43235; principal; 2023-04-11 10:00)
DX: K29.70 Gastritis, unspecified, without bleeding (principal); M79.7 Fibromyalgia; F32.9 Major depressive disorder, single episode, unspecified; I73.9 Peripheral vascular disease, unspecified; Z86.73 Personal history of transient ischemic attack (TIA), and cerebral infarction without residual deficits; Z79.02 Long term (current) use of antithrombotics/antiplatelets; Z79.82 Long term (current) use of aspirin; Z95.820 Peripheral vascular angioplasty status with implants and grafts; Z85.048 Personal history of other malignant neoplasm of rectum, rectosigmoid junction, and anus; Z92.21 Personal history of antineoplastic chemotherapy; Z92.3 Personal history of irradiation; Z87.891 Personal history of nicotine dependence
CPT/HCPCS: 43239; 88305; J2001; J2704; J7120

== ENCOUNTER 2023-04-17 08:22 | Outpatient (CLI) | payer MEDICARE, SELFPAY ==
--- NOTE | ~2023-04-17 | US_ITS ---
US abdomen complete EXAMINATION: US Abdomen Complete INDICATION: Abnormal weight loss and nausea PROCEDURE: Realtime High Resolution abdomen ultrasound. COMPARISON: No prior studies for comparison FINDINGS: Gallbladder is surgically absent. Common bile duct measures 6.5 mm. Liver echotexture within normal limits without focal mass. Pancreas within normal limits. Pancreati c tail is obscured by bowel gas. Spleen is unremarkeable. Renal echotexture is within normal limits bilaterally without hydronephrosis, contour deforming mass or renal stone. Right kidney measures 8.5 cm. Left kidney measures 8.4 cm. Visualized aspects of the aorta and IVC are within normal limits. Portal vein is patent. No sonograph ic Amaral's sign indicated by the technologist. IMPRESSION: 1: Unremarkable abdominal ultrasound postcholecystectomy. Reviewed, dictated and finalized at [facility].
== END 2023-04-17 08:23 | disposition home or self-care (01) ==
LOC: ANHIMG 08:25
PROVIDERS: PCP Internal Medicine; Visit Provider Internal Medicine Gastroenterology
DX: R11.0 Nausea (principal); R63.4 Abnormal weight loss; K21.9 Gastro-esophageal reflux disease without esophagitis
CPT/HCPCS: 76700

== ENCOUNTER 2023-06-18 15:51 | Outpatient (CLI) | payer MEDICARE, SELFPAY ==
[2023-06-18 16:09] LABS: Eosinophils Percent Auto 0.5 % (0-4.4); Hematocrit 37.6 % (37.0-47.0); Hemoglobin 11.8 g/dL (12.0-15.0); Immature Granulocyte Absolute 0.01 K/mm3 (0.00-0.031); Immature Granulocyte Percent A 0.2 % (0-0.5); Lymphocytes Absolute Auto 1.12 K/mm3 (0.9-3.2); Lymphocytes Percent Auto 18.8 % (18.3-44.2); Mean Corpuscular HGB Conc 31.4 g/dl (32-36); Mean Corpuscular Hemoglobin 28.4 pg (26-34); Mean Corpuscular Volume 90.6 fl (80-100); Mean Platelet Volume 9.5 fl (7.4-10.4); Monocytes Absolute Auto 0.5 K/mm3 (0.1-0.6); Monocytes Percent Auto 9.1 % (2.6-8.5); Neutrophils Absolute Auto 4.3 K/mm3 (1.3-6.7); Neutrophils Percent Auto 71.4 % (45.5-73.1); Platelet Count Result 252 k/mm3 (150-375); Red Blood Count 4.15 M/mm3 (4.2-5.4); Red Cell Distribution Width 15.1 % (11.5-14.5)
[2023-06-18 16:58] LABS: Iron 41 ug/dL (37-170)
[2023-06-18 17:07] LABS: Percent Iron Saturation 9 % (20-50)
[2023-06-18 17:32] LABS: Ferritin 6.68 ng/mL (11.1-264)
[2023-06-18 18:18] LABS: Alanine Aminotransferase 19 U/L (6-35); Albumin Level 4.7 g/dL (3.5-5.1); Alkaline Phosphatase 75 U/L (38-126); Anion Gap 10 mmol/L (8-16); Aspartate Amino Transferase 42 U/L (14-36); Bilirubin,Total 0.5 mg/dL (0.2-1.3); Blood Urea Nitrogen 10 mg/dL (7-17); Calcium 9.2 mg/dL (8.4-10.2); Carbon Dioxide 26 mmol/L (22-30); Chloride 103 mmol/L (98-107); Estimated Glomerular Filt Rate > 60; Glucose 108 mg/dL (65-110); Lactate Dehydrogenase 189 U/L (120-246); Potassium 3.9 mmol/L (3.4-5.0); Sodium 139 mmol/L (137-145)
[2023-06-18 19:24] LABS: Folic Acid 7.6 ng/mL (2.76->20)
[2023-06-21 16:39] LABS: Methylmalonic Acid 175 nmol/L (87-318)
== END 2023-06-18 15:52 | disposition home or self-care (01) ==
LOC: ANHLAB 15:53
PROVIDERS: PCP Internal Medicine; Visit Provider Internal Medicine Hematology & Oncology
DX: D64.9 Anemia, unspecified (principal)
CPT/HCPCS: 36415; 80053; 82607; 82728; 82746; 83540; 83550; 83615; 83921; 84238; 85025

== ENCOUNTER 2023-10-30 11:53 | Outpatient (CLI) | payer MEDICARE, SELFPAY ==
[2023-10-30 12:16] LABS: Eosinophils Absolute Auto 0.1 K/mm3 (0-0.3); Eosinophils Percent Auto 1.6 % (0-4.4); Hematocrit 34.5 % (37.0-47.0); Hemoglobin 10.4 g/dL (12.0-15.0); Immature Granulocyte Absolute 0.01 K/mm3 (0.00-0.031); Immature Granulocyte Percent A 0.2 % (0-0.5); Lymphocytes Absolute Auto 1.12 K/mm3 (0.9-3.2); Lymphocytes Percent Auto 25.5 % (18.3-44.2); Mean Corpuscular HGB Conc 30.1 g/dl (32-36); Mean Corpuscular Hemoglobin 27.2 pg (26-34); Mean Corpuscular Volume 90.3 fl (80-100); Mean Platelet Volume 9.2 fl (7.4-10.4); Monocytes Absolute Auto 0.5 K/mm3 (0.1-0.6); Monocytes Percent Auto 10.7 % (2.6-8.5); Neutrophils Absolute Auto 2.7 K/mm3 (1.3-6.7); Platelet Count Result 247 k/mm3 (150-375); Red Blood Count 3.82 M/mm3 (4.2-5.4); White Blood Count 4.4 K/mm3 (4.5-10.0)
[2023-10-30 14:03] LABS: Iron 47 ug/dL (37-170)
[2023-10-30 14:13] LABS: Percent Iron Saturation 12 % (20-50)
[2023-10-30 14:39] LABS: Ferritin 9.13 ng/mL (11.1-264)
[2023-10-30 15:11] LABS: Folic Acid 8.4 ng/mL (2.76->20)
== END 2023-10-30 11:54 | disposition home or self-care (01) ==
LOC: ANHLAB 11:55
PROVIDERS: PCP Clinical Nurse Specialist; Visit Provider Internal Medicine Hematology & Oncology
DX: D64.9 Anemia, unspecified (principal)
CPT/HCPCS: 36415; 82607; 82728; 82746; 83540; 83550; 85025

== ENCOUNTER 2023-11-20 14:21 | Outpatient (CLI) | payer MEDICARE, SELFPAY ==
--- NOTE | ~2023-11-20 | XR_ITS ---
XR chest 2V 11/20/2023 14:40 Indication: Dyspnea. Cough. Procedure: 2 view chest Comparison: 09/17/[address] dated 03/09/2023 Findings: There is a 6 mm nodule right mid thorax, likely corresponding to right middle lobe nodule s een on CT. Heart size normal. Surgical changes present left upper abdomen. No focal pneumonia, edema, pleural effusion or pneumothorax. Impression: 1: Right middle lobe nodule measuring [address] chest recommended to assess for inter srikanth change from 03/09/2023. Reviewed, dictated and finalized at location B. Impression: 1: Right middle lobe nodule measuring [address] chest recommend ed to assess for interval change from 03/09/2023.
== END 2023-11-20 14:22 | disposition home or self-care (01) ==
LOC: ANHIMG 14:23
PROVIDERS: PCP Clinical Nurse Specialist; Visit Provider Clinical Nurse Specialist
DX: R06.89 Other abnormalities of breathing (principal); R05.9 Cough, unspecified; R91.1 Solitary pulmonary nodule
CPT/HCPCS: 71046

== ENCOUNTER 2023-11-29 14:06 | Outpatient (CLI) | payer MEDICARE, SELFPAY ==
--- NOTE | ~2023-11-29 | CT_ITS ---
Clinical Indication: Pulmonary nodule CT Scan of the Chest with Contrast: Technique: Contiguous sections were acquired throughout the chest after intravenous administration of 75 cc of Omnipaque 350. Dose reduction technique was used on this scan by utilizing automated exposu re control and iterative reconstruction technique. The dose-length product (DLP) was 141.57 mGy-cm. COMPARISON: 03/09/2023 Findings: There is no evidence of any significant mediastinal, hilar or axillary lymphadenopathy. There is no l arge central pulmonary embolus. There is no evidence of aortic dissection or aneurysm. There is no evidence of pleural or pericardial effusion. Stable irregular 8 mm right middle lobe pulmonary nodule (axial image 69). Mild emphysema present. Images through the upper abdomen reveal no abnormalities. Impression: No evidence of pulmonary embolus, aortic dissection, or aortic aneurysm. Clear lungs. Reviewed, dictated and finalized at [facility]. Impression: No evidence of pulmonary embolus, aortic dissection, or aortic aneurysm. Clear lungs.
--- NOTE | ~2023-11-29 | US_ITS ---
EXAMINATION: US soft tissue head and neck DATE: 11/29/2023 15:03 INDICATION: Right neck lump. TECHNIQUE: Multiple grayscale and Doppler ultrasound images of the head and neck were obtained. COMPARISON: Chest CT 11/29/2023 FINDINGS: There is a 2.0 x 1.3 x 1.5 cm lymph node in right neck. IMPRESSION: 1. Enlarged lymph node in right neck suspicious for metastatic disease or lymphoma. Ultrasound-guided core biopsy is recommended. Reviewed, dictated and finalized at location A. IMPRESSION: 1. Enlarged lymph node in right neck suspicious for metastatic disease or lymph stephanie. Ultrasound-guided core biopsy is recommended.
[2023-11-29 14:32] LABS: Estimated Glomerular Filt Rate > 60
== END 2023-11-29 14:07 | disposition home or self-care (01) ==
LOC: ANHIMG 14:10
PROVIDERS: PCP Clinical Nurse Specialist; Visit Provider Clinical Nurse Specialist
DX: R91.1 Solitary pulmonary nodule (principal)
CPT/HCPCS: 71260; 76536; Q9967

== ENCOUNTER 2023-11-30 10:13 | Outpatient (CLI) | payer MEDICARE, SELFPAY ==
--- NOTE | ~2023-11-30 | MM_ITS ---
EXAMINATION: MM screening anel BI w sugar HISTORY: Screening mammogram TECHNIQUE: Craniocaudal and mediolateral oblique 3-D tomosynthesis images were obtained and synthetic 2-D images were generated. CAD analysis was submitted and interpreted. COMPARISON: November 08, 2012 bilateral screening mammogram BREAST PARENCHYMAL COMPOSITION: The breasts are almost entirely fatty. FINDINGS: Biopsy marker is noted on the left. History of prior benign breast biopsy. Scattered bilateral calcified benign microhematoma as. There is no evidence of suspicious mass, calci fication, or architectural distortion to suggest malignancy in either breast. There has been no suspi cious interval change. IMPRESSION: 1. No mammographic evidence of malignancy. 2. Recommend routine screening mammography in one year. BI-RADS Category 2: Benign finding(s). Reviewed, dictated and finalized at location B.
== END 2023-11-30 10:14 | disposition home or self-care (01) ==
LOC: ANHIMG 10:15
PROVIDERS: PCP Clinical Nurse Specialist; Visit Provider Clinical Nurse Specialist
DX: Z12.31 Encounter for screening mammogram for malignant neoplasm of breast (principal)
CPT/HCPCS: 77063; 77067

== ENCOUNTER 2023-12-28 08:31 | Outpatient (CLI) | payer MEDICARE, SELFPAY ==
--- NOTE | ~2023-12-28 | US_ITS ---
EXAMINATION: US biopsy lymph node DATE: 12/28/2023 09:37 INDICATION: Right cervical lymphadenopathy. Localized enlarged lymph nodes. TECHNIQUE: The procedure including the risks, benefits, and alternatives was discussed with the patie nt. Risks discussed included bleeding and infection. The patient understood the risks and agreed to p roceed. The skin overlying the right neck was prepped and draped in usual sterile fashion. Anestheti c was administered with 1% lidocaine subcutaneously. An 18 gauge core biopsy needle was then used to obtain 6 core biopsy specimens under continuous sonographic guidance. The entry site was cleaned and dressed. There were no immediate complications. FINDINGS: Ultrasound images demonstrate the needle in a 2.4 x 1.0 x 1.8 cm right high internal jugula r chain lymph node. IMPRESSION: 1. Ultrasound-guided core needle biopsy of a right high internal jugular chain lymph node. Reviewed, dictated and finalized at location A.
== END 2023-12-28 08:32 | disposition home or self-care (01) ==
LOC: ANHIMG 08:32
PROVIDERS: PCP Clinical Nurse Specialist; Visit Provider Clinical Nurse Specialist
DX: R59.0 Localized enlarged lymph nodes (principal); C96.9 Malignant neoplasm of lymphoid, hematopoietic and related tissue, unspecified
CPT/HCPCS: 38505; 76942; 88184; 88305; 88342

== ENCOUNTER 2024-01-22 10:49 | Outpatient (CLI) | payer MEDICARE, SELFPAY ==
--- NOTE | ~2024-01-22 | PE_ITS ---
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 9.705 mCi of 18-fluorodeoxyglucose (18-FDG) was administ ered i.v. Low dose computed tomography (CT) images were acquired from the base of the brain to the pr oximal thighs for attenuation correction and anatomic localization. Positron emission tomography (PET ) images were acquired in the same distribution beginning 68 minutes after injection. Images includin g fused PET/CT images were reconstructed in axial, coronal, and sagittal planes. Automated exposure c ontrol technique was employed. The dose-length product was 680.90mGy-cm. COMPARISON: Ultrasound of the soft tissues of the head and neck dated 12/09/[address] dated 11/29/2023 FINDINGS: Head/neck: There is symmetric increased activity in the oral cavity, palatine tonsils, submandibular glands, la ryngeal muscles and ocular muscles without CT correlate, likely physiologic. There are bilateral FDG avid lymph nodes in the posterior cervical triangles. On the left the largest lymph node at level C2 measures 1.6 x 1.0 cm with maximal SUV of 11.8 on the right there is a 2.1 x 1.0 cm lymph node or col lection of lymph nodes at the level of C2-C3 with maximal SUV of 4.3. There is an additional smaller and more caudal lymph node on the right measuring approximately 6 mm in maximal diameter with maximal SUV of 6.0. There is a 4.7 5 mm deep right parotid lymph node with maximal SUV of 3.7. These are all concerning for metastatic disease. No abnormal FDG uptake associated with a normal-sized lymph nodes along the bilateral jugular chains. Chest: Moderate emphysema. There is mild increased FDG uptake associated with a 9 x 5 mm spiculated nodule i n the peripheral right middle lobe with maximal SUV of 3.3. Calcified right middle lobe nodule consis tent with old granulomatous disease. No pneumonia, pulmonary edema or pleural effusion. Heart size is normal. No pericardial effusion. Normal caliber thoracic aorta. No pathologically enlarged or abnorm ally FDG avid thoracic lymphadenopathy. Abdomen/pelvis/proximal thighs: There are multiple surgical clips in the left epigastric region with change of likely prior Gregory fu ndoplication better evident on the prior contrast enhanced CT imaging. Physiologic renal accumulation and excretion of FDG activity in the kidneys, bladder and along portions of ureters. Normal degree a nd heterogenous pattern of increased uptake throughout the liver without radiologic correlate or chaya nant FDG avid lesion. Cholecystectomy clips the gallbladder fossa. The pancreas, spleen and bilateral adrenal glands are normal. Left aortofemoral bypass graft versus stent with additional femoral-femor al bypass graft. Stent in the proximal right superficial femoral artery. Mild uptake scattered throug hout the bowels without radiologic correlate, also likely physiologic. No other abnormal foci of incr eased FDG uptake or pathologically enlarged lymphadenopathy in the abdomen, pelvis or proximal thighs . Musculoskeletal: L4 laminectomy with L4-L5 instrumented anterior and posterior spinal fusion with interbody bone graft cage and bilateral vertical ama and pedicle screw fixation. Right total hip arthroplasty. There are no suspicious lytic, blastic or FDG avid bone lesions to suggest osseous metastatic disease. Foci of uptake at the left antecubital fossa likely representing some extravasation of activity and adjacent skin contamination at the site of injection. IMPRESSION: 1. A few mildly enlarged and FDG avid posterior cervical triangle lymph nodes on both the left and ri ght and small FDG avid deep) lymph node which is suspicious for metastatic disease. 2. Mild increased FDG uptake associated with a 9 x 5 mm spiculated right middle lobe nodule which can be infectious, inflammatory
--- NOTE | ~2024-01-22 | MR_ITS ---
EXAMINATION: MR sinus wo/w con DATE: 01/22/2024 13:19 INDICATION: Squamous cell carcinoma. TECHNIQUE: Magnetic resonance imaging (MRI) of the paranasal sinuses was performed without and with 9 mL MultiHance intravenous contrast. COMPARISON: None. FINDINGS: There are scattered areas of nonspecific increased T2-weighted signal intensity in the cere bral white matter and nicholas. There is no intracranial hemorrhage, acute infarction, or abnormal intrac ranial mass lesion. The ventricles are normal in size. There are likely changes of left ocular lens r eplacement surgery. The paranasal sinuses are clear. There are small bilateral mastoid effusions. The re is bilateral high internal jugular chain lymphadenopathy. IMPRESSION: 1. Bilateral high internal jugular chain lymphadenopathy, consistent with metastatic disease. 2. Moderate nonspecific cerebral white matter disease and pontine disease, which likely represents ch ronic small vessel ischemic disease. Reviewed, dictated and finalized at location A. IMPRESSION: 1. Bilateral high internal jugular chain lymphadenopathy, consistent with metas tatic disease. 2. Moderate nonspecific cerebral white matter disease and pontine disease, whic h likely represents chronic small vessel ischemic disease.
[2024-01-22 11:11] LABS: Glucose Point of Care 98 mg/dl (65-105)
== END 2024-01-22 10:50 | disposition home or self-care (01) ==
PROVIDERS: PCP Internal Medicine; Visit Provider Internal Medicine Hematology & Oncology
DX: C11.9 Malignant neoplasm of nasopharynx, unspecified (principal); C44.321 Squamous cell carcinoma of skin of nose; R90.82 White matter disease, unspecified
CPT/HCPCS: 70543; 78815; A9552; A9577

== ENCOUNTER 2024-01-28 00:48 | Day surgery (SDC) | payer MEDICARE, SELFPAY ==
--- NOTE | 2024-01-25 09:51 | PC.NURSE ---
Report to the Outpatient Waiting Room, entrance under the green pavilion located off [facility], at time _0830 on date __01/28/24 . Planned Procedure Time: ___1030 . Time changes happen often and if your time is changed the preop area will call you the afternoon before. - You and your visitor will be asked to self-screen and do not enter if you have any COVID symptoms. - A mask is optional within the hospital at this time. Patients may have clear liquids (water, carbonated beverages, clear teas, apple juice) until 3 hours prior to surgery(7:30am) with a maximum of 20 ounces. - No food from midnight until time of surgery - Infants may have breast milk until 4 hours before surgery, infant formula 6 hours prior to surgery. - Children will be allowed to drink immediately following surgery. If applicable, please bring a bottle or sippy cup to assist with drinking. Juice, water, soda, and popsicles are readily available. For infants on formula, please bring formula the day of surgery. Pacifiers are allowed. Take the following medications with a SIP of water the morning of surgery: _inhaler if needed,hydrocodone if needed for pain,lorazepam,paroxetine DO NOT STOP ANY OF YOUR OTHER PRESCRIPTION MEDICATIONS PRIOR TO SURGERY ?EXCEPT THE FOLLOWING Medications to discontinue per physician ___PT STATES LAST DOSE ASPIRIN AND XARELTO 01/21/24-STOPPED ON HER OWN Please no make-up, nail luxembourgish, hairspray, perfume, deodorant, or body powder the day of surgery. No jewelry (including any body piercings) or valuables the day of surgery, leave them at home. Please take a shower or bath the night before, or the morning of, surgery with an antibacterial soap. Wear comfortable, loose fitting clothing. Children are encouraged to wear pajamas. - Jewelry must be removed prior to entering the operating room. Rings and piercings that are not removed may be cut off. - The hospital will not accept responsibility for valuables. - Please leave all valuables, including medications, at home the day of surgery. If you are going home after surgery, a licensed local truck driver must drive you home. - NO public transportation without another adult if you receive anesthesia. - We recommend that an adult stay with you for 24 hours following discharge. - We also recommend that you do not drive, make important decision, drink alcoholic beverages, or take any drugs that were not prescribed by your health care provider for at least 24 hours after your discharge time. Follow any additional instructions given to you from your surgeon. If you or anyone in your household have experienced Covid symptoms in the past week, please notify your surgeon or the nurse liaison at the phone number below for possible testing. Telephone instructions given to ___PATIENT and asked if any additional questions and then verbalized understanding. Patient advised to call surgeon office or pre surgery nurse liaison [phone] if any additional questions.
[2024-01-25 09:57] VITALS: BMI 24.1
--- NOTE | ~2024-01-28 | XR_ITS ---
EXAMINATION: XR chest port-a-cath/central DATE: 01/28/2024 11:31 INDICATION: Status post port catheter insertion TECHNIQUE: frontal view of the chest was obtained. COMPARISON: Chest radiograph dated 11/20/2023 FINDINGS: Right subclavian central venous port catheter with distal tip at the midsuperior vena cava. Again see n is a small nodular opacity lateral right midlung zone. There is also a calcified nodule at the righ t lung base consistent with old granulomatous disease. No new airspace opacities, pulmonary edema, pl eural effusion or pneumothorax. The cardiomediastinal silhouette is normal. There are surgical clips in the epigastric region. IMPRESSION: 1. No pneumothorax or other acute cardiopulmonary disease post placement of a right subclavian centra l venous port catheter with distal tip at the midsuperior vena cava. 2. Indeterminate small right middle lobe pulmonary nodule with mild uptake on prior PET/CT which coul d be malignant, infectious or inflammatory in etiology. Reviewed, dictated and finalized at location A. IMPRESSION: 1. No pneumothorax or other acute cardiopulmonary disease post placement of a r ight subclavian central venous port catheter with distal tip at the midsuperior vena cava. 2. Indeterminate small right middle lobe pulmonary nodule with mild uptake on p rior PET/CT which could be malignant, infectious or inflammatory in etiology.
--- NOTE | ~2024-01-28 | XR_ITS ---
EXAMINATION: XR fl guide central line place DATE: 01/28/2024 11:04 INDICATION: Port placement. TECHNIQUE: 2 intraoperative fluoroscopic views of the chest were obtained. I was not present. Fluoros copy the time was 54 seconds. COMPARISON: Chest single view 01/28/2024 FINDINGS: There is a right subclavian port with tip in superior vena cava. IMPRESSION: 1. Right subclavian port with tip in superior vena cava. Reviewed, dictated and finalized at location E.
[2024-01-28 08:35] VITALS: BP 149/71; PULSE 72; RESP 20; TEMP 36.9; O2SAT 98
[2024-01-28] MEDS: LACTATED RINGERS 1,000 ML 30 ML IV CONT (08:55)
[2024-01-28 09:24] LABS: Partial Thromboplastin Time 25.8 Seconds (22.3-36.8)
--- NOTE | 2024-01-28 09:45 | PM.IMHP ---
H&P: HPI History of Present Illness Date/Time: 01/28/24 09:45 Chief Complaint: Right neck nasopharyngeal squamous cell CA Narrative: Patient is a 68-year-old female referred from her oncologist placement of catherine catheter. 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 She has seen Radiation Oncology and is scheduled to undergo radiation treatments. It is also planned that she will get adjuvant chemotherapy. She presents today for placement catherine catheter for the therapy. Patient has been off her Xarelto for least 2 days. She had a prior right side port for blood draws previously. Port was removed about 5 years ago. Review of Systems Review of Systems: The remainder of the review of systems to include constitutional, HEENT, cardiovascular, respiratory, GI, , integumentary, musculoskeletal, endocrine, immunologic, hematologic, psychiatric, and neurologic are all negative except for which is mentioned above in the HPI. [facility] Past Medical History Medical History Anal disorder 1994-Sqamous cell with Dr. 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 Anemia Atherosclerosis AVM (arteriovenous malformation) AVM (arteriovenous malformation) of colon Blood clotting disorder Carotid stenosis Cholecystectomy planned 1977 Chronic pain Diarrhea Dizziness Encounter for other specified surgical aftercare Encounter for venous access device care Port or catheter 2018 Femoral artery stenosis Bypass 2011 3 Stents in right leg Fibromyalgia GERD (gastroesophageal reflux disease) GI bleeding Secondary to AVMs H/O fracture H/O one miscarriage Heart disease Hemorrhoids Hernia 2001 History of nervous system or sense organ disease History of pancreatitis Histrionic behavior Hypertension (Unknown) Insomnia Iron deficiency Iron deficiency anemia Kidney stones Major depressive disorder Mycosis fungoides Osteoarthritis Pancreatitis Peripheral arterial disease with history of revascularization Port-A-Cath in place PVD (peripheral vascular disease) Rectal cancer Chemo and radiation [id number] Skin disorder Stroke TIA (transient ischemic attack) Vertigo Weight loss Surgical History Surgical History H/O elbow surgery Right 1983 H/O shoulder surgery Right 1976 H/O wrist surgery 1984 H/O: hysterectomy 1994 History of atherectomy 1979 History of fundoplication For Chaves's Esophagus 2003 History of hip replacement Right 2012 Previous back surgery Plates and screws in back S/P insertion of iliac artery stent 02/2017 S/P peripheral artery angioplasty with stent placement Status post femoropopliteal bypass surgery Family History Family History Mother Family history of chronic obstructive pulmonary disease Sibling Breast cancer Cancer of kidney Grandparent Stomach cancer Other Family history of malignant neoplasm Hypertension Social History Social History Smoking packs per day: 1 Smoking cigarettes per day: 20.0 Years smoked: 52 Smoking pack-years: 52.00 Smoking status: Former smoker Tobacco type: cigarettes Smoking end date: 07/23/13 Additional smoking assessment comments: currently vaping Alcohol intake: current Alcohol use details: Pt drinks occasionally. Substance use: current Substance use type: marijuana Other substance usage details: OCC. Living arrangements: alone Spiritual care concerns: No Meds Home Medications and Allergies Home Medications Medication Instructions Recorded Confirmed Type aspirin 81 mg tablet,delayed 81 mg PO DAILY 07/14/19 01/28/24 History release (Adult Low Dose Aspirin) trazodone 50 mg tablet 50 mg PO HS 10/21/19 01/28/24 History par
--- NOTE | 2024-01-28 10:00 | WPDHPUPDATE1 ---
History and Physical Update Update Date/Time: 01/28/24 10:00 History and Physical has been reviewed, including an updated exam of the patient. There are NO changes in the patient's condition. Risks, benefits, and alternatives have been discussed and questions answered. Patient agrees to proceed with procedure.
--- NOTE | 2024-01-28 10:03 | WPDANESEPPF ---
Anes - Initial Pre Proc Eval Procedure: Operation Date: 01/28/24 10:30 Proposed Procedures p Insertion Lara Cath - Oscar Mejia MD Date/Time: 01/28/24 10:03 Surgeon: Oscar Mejia MD Pre Op Diagnosis: nasopharyngeal carcinoma Patient Data Age: 68 Gender: F Height: 1.59 m Weight: 60.8 kg Allergies Allergy/AdvReac Type Severity Reaction Status Date / Time No Known Allergies Allergy Verified 01/28/24 08:32 Home Medications Medication Instructions Recorded Confirmed Type aspirin 81 mg tablet,delayed 81 mg PO DAILY 07/14/19 01/28/24 History release (Adult Low Dose Aspirin) trazodone 50 mg tablet 50 mg PO HS 10/21/19 01/28/24 History paroxetine HCl 20 mg tablet 20 mg PO DAILY 04/04/23 01/28/24 History pantoprazole 20 mg tablet,delayed See Rx Instructions .Route 07/18/23 01/28/24 Rx release .COMPLEX #90 tabs lorazepam 0.5 mg tablet (Ativan) 0.5 mg PO DAILY PRN Anxiety 10/10/23 01/28/24 History promethazine 25 mg tablet See Rx Instructions .Route 01/03/24 01/28/24 Rx .COMPLEX #30 tabs albuterol sulfate 90 mcg/actuation 1 puff inhalation Q4H PRN 01/21/24 01/28/24 Rx aerosol inhaler shortness of breath or wheezing #8.5 grams hydrocodone 5 mg-acetaminophen 325 1 tablet PO PRN PRN Pain 01/25/24 01/28/24 History mg tablet paroxetine HCl 10 mg tablet 10 mg PO DAILY 01/25/24 01/28/24 History rivaroxaban 2.5 mg tablet (Xarelto) 2.5 mg PO BID 01/25/24 01/28/24 History Laboratory Tests 01/28/24 08:53 PT 13.0 Seconds (11.1-14.7) INR 1.0 APTT 25.8 Seconds (22.3-36.8) Patient hx anesthesia problems: none Family hx anesthesia problems: none Results Review: All pre-operative results and documents have been reviewed as part of the pre-operative evaluation. 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 Anemia Atherosclerosis AVM (arteriovenous malformation) AVM (arteriovenous malformation) of colon Blood clotting disorder Carotid stenosis Cholecystectomy planned 1977 Chronic pain Diarrhea Dizziness Encounter for other specified surgical aftercare Encounter for venous access device care Port or catheter 2018 Femoral artery stenosis Bypass 2011 3 Stents in right leg Fibromyalgia GERD (gastroesophageal reflux disease) GI bleeding Secondary to AVMs H/O fracture H/O one miscarriage Heart disease Hemorrhoids Hernia 2001 History of nervous system or sense organ disease History of pancreatitis Histrionic behavior Hypertension (Unknown) Insomnia Iron deficiency Iron deficiency anemia Kidney stones Major depressive disorder Mycosis fungoides Osteoarthritis Pancreatitis Peripheral arterial disease with history of revascularization Port-A-Cath in place PVD (peripheral vascular disease) Rectal cancer Chemo and radiation [id number] Skin disorder Stroke TIA (transient ischemic attack) Vertigo Weight loss Surgical History Surgical History H/O elbow surgery Right 1983 H/O shoulder surgery Right 1976 H/O wrist surgery 1984 H/O: hysterectomy 1994 History of atherectomy 1979 History of fundoplication For Chaves's Esophagus 2003 History of hip replacement Right 2012 Previous back surgery Plates and screws in back S/P insertion of iliac artery stent 02/2017 S/P peripheral artery angioplasty with stent placement Status post femoropopliteal bypass surgery Family History Family History Mother Family history of chronic obstructive pulmonary disease Sibling Breast cancer Cancer of kidney Grandparent Stomach cancer Other Family history of malignant neoplasm Hypertension Social History Social History Smoking packs per day: 1 Smoking cigarettes
[2024-01-28] MEDS: ceFAZolin 2 GM/D5W 50 ML 2 GM/50 ML BAG IVPB (10:12)
[2024-01-28] MEDS: LIDO 1%/EPINEPHRINE 1:100,000 50 ML VIAL 20 ML INFILTRATE (10:39)
[2024-01-28] MEDS: BUPivacaine HCL 0.5% 10 ML AMP 20 ML INFILTRATE (10:40)
[2024-01-28] MEDS: HEPARIN SODIUM 1,000 UNITS/ML VIAL 1000 UNITS IV PUSH (10:40)
[2024-01-28] MEDS: HEPARIN SODIUM 5,000 UNITS/ML VIAL 5000 UNITS IRRIGATION (10:41)
--- NOTE | 2024-01-28 11:18 | W.PM.PROC2 ---
Procedure Note - Detailed Date of Procedure 01/28/24 Pre-op Diagnosis Nasopharyngeal squamous cell carcinoma right neck. Post-op Diagnosis Same Procedure Performed Placement of right subclavian vein single-lumen port a catheter with intraoperative fluoroscopy. Surgeon Oscar Mejia MD Anesthesia MAC Indications Patient is a 68-year-old female who was recently diagnosed with right neck squamous cell carcinoma. She is to undergo chemotherapy and radiation treatments. She presents now for placement of catherine catheter for chemotherapy treatments. Findings None significant Description of Procedure After informed consent was obtained patient brought to the operating room she was placed supine position and IV sedation was administered by anesthesia. Bilateral upper neck and chest was then prepped and draped usual sterile fashion. Time-out was then performed correctly identifying the patient as well as procedure to be performed. She was given perioperative IV antibiotics. I 1st attempted placement of the guidewire into the right internal jugular vein. The patient in the Trendelenburg position I then anesthetized area between the 2 heads of the right sternocleidomastoid muscle. I then used a long 18gauge spinal needle to cannulate the right internal jugular vein. There was prompt return of dark venous appearing blood. A guidewire was advanced through the needle into the right internal jugular vein. Intraoperative fluoroscopy was then used to identify the tip of the guidewire. For to tip the guidewire was not in proper position and had traveled through the break cephalic vein into the left subclavian vein. With intraoperative fluoroscopy I attempted to manipulate the guidewire into the downward position into the superior vena cava. This was unsuccessful. At this point I then removed the guidewire from the right internal jugular vein. I then decided to 10 placement of the catheter into the right subclavian vein. 1% lidocaine mixed with 0.5% Marcaine 50/50 mixture was then injected below the medial 3rd of the right clavicle. A transverse incision was then made with a scalpel and the area dissection was then carried down through the subcu tissues until I encountered anterior pectoralis major fascia. I then created a subcu port pocket with electrocautery just below the incision. I then used a long 18gauge spinal needle to cannulate percutaneously the right subclavian vein without difficulty. There was prompt return dark venous appearing blood. A guidewire was advanced into the right subclavian vein easily. Intraoperative fluoroscopy was then used in visualized of the guidewire and this time the guidewire was in the proper position in the right atrium of the heart via the superior vena cava. Needle was then removed and then I advanced a dilator breakaway sheath over the guidewire. The dilator and guidewire were removed leaving the sheath in place. A 9.6 Salvadorean single-lumen catheter was then advanced through the sheath into the right subclavian vein subsequently down into the right atrium of the heart. The sheath was then torn away leaving the catheter in place. Then utilizing intraoperative fluoroscopy once more I visualized the tip of the catheter and then pulled back on the catheter until the tip was in the distal superior vena cava. I then cut the catheter to the appropriate length the skin level attached to the Smart Port. The Smart port was then secured in subcu port pocket on 3 sides utilizing 3-0 Prolene sutures. I then irrigated out the port pocket with sterile saline solution hemostasis was good. I then accessed the port and it penny back blood easily and was flushed with heparinized saline solution. I then close incision utilizing interrupted 3-0 Vicryl sutures in the subcutaneous tissues. The skin edges were then approximated lies in a running subcuticular 4 Monocryl suture. Incision was then cleaned the skin glue was applied. I then accessed the p
[2024-01-28 11:19] VITALS: BP 135/77; PULSE 63; RESP 16; O2SAT 99
[2024-01-28] MEDS: oxyCODONE HCL (*CRX) 5 MG TAB IR PO (11:40)
[2024-01-28 11:45] VITALS: BP 182/72; PULSE 57; RESP 18
[2024-01-28 12:10] VITALS: BP 143/94; PULSE 64; RESP 18
== END 2024-01-28 12:15 | disposition home or self-care (01) ==
PROVIDERS: PCP Internal Medicine; Visit Provider Surgery
PROC: (CPT 36561; principal; 2024-01-28 10:30)
DX: C76.0 Malignant neoplasm of head, face and neck (principal); F17.290 Nicotine dependence, other tobacco product, uncomplicated; Z79.01 Long term (current) use of anticoagulants; Z79.82 Long term (current) use of aspirin; Z79.51 Long term (current) use of inhaled steroids; F12.90 Cannabis use, unspecified, uncomplicated
CPT/HCPCS: 36561; 36415; 77001; 85610; 85730; A9270; C1788; J0690; J1644; J2250; J2704; J3010; J7030; J7040; J7120

== ENCOUNTER 2024-04-19 17:18 | Inpatient (IN) | payer MEDICARE, SELFPAY ==
--- NOTE | ~2024-04-19 | CT_ITS ---
CT Scan of the Chest without Contrast: Clinical Indication: Chest congestion, fever Technique: Contiguous sections were acquired throughout the chest without intravenous contrast. Dose reduction technique was used on this scan by utilizing automated exposure control and iterative recon struction technique. The dose-length product (DLP) was 186.32 mGy-cm. COMPARISON: 11/29/2023 Findings: There is no evidence of any significant mediastinal, hilar or axillary lymphadenopathy. The mediastin al soft tissues appear normal. There is no evidence of pleural or pericardial effusion. Moderate to advanced emphysema present. Calcified right middle lobe granuloma present. 6 mm periphera l right middle lobe nodule is stable to minimally decreased from prior exam (axial image 85). Images through the upper abdomen reveal percutaneous gastrostomy tube. Impression: No acute abnormality seen. Moderate to advanced emphysema. 6 mm peripheral right middle lobe nodule stable to minimally decreased from prior exam. Reviewed, dictated and finalized at [facility]. Impression: No acute abnormality seen. Moderate to advanced emphysema. 6 mm peripheral right middle lobe nodule stable to minimally decreased from george or exam.
--- NOTE | ~2024-04-19 | CT_ITS ---
CT abdomen pelvis w con Ordering provider: Courtney Rahman APRN History: 68 years Female with . anemia . Comparison: December 30, 2011 Technique: CT abdomen and pelvis with IV and without oral contrast. Automated exposure control and it erative reconstruction technique were employed. The dose-length product was 246.89 mGy-cm. 100 mL Omn ipaque 350 was given IV. Findings: VISUALIZED LOWER CHEST: Normal. UPPER ABDOMINAL ORGANS: Liver: Normal. Gallbladder: Status post cholecystectomy. Spleen: Normal. Stomach/duodenum: Gastrostomy tube is noted. hyperdensity in the distal stomach is most likely artifa ctual. Follow-up advised. Pancreas: Normal. Adrenals: Left adrenal adenoma is noted measuring 1 cm. No follow-up advised unless clinically warran reuben Kidneys: Normal. PELVIC ORGANS: The bladder is normal. Artifacts are seen in the area. BOWEL AND MESENTERY: Colon: No evidence of diverticulitis.. The appendix is not demonstrated. Slightly thickened wall of the ascending colon. Follow-up advised. Small Bowel: Normal. No obstruction. Peritoneum/mesentery: No free air or free fluid. No mesenteric lymphadenopathy. RETROPERITONEUM: Severe atheromatous disease of the abdominal aorta. Left iliac stent is noted. Thro mbosed right iliac artery is seen. Right femoral stent is also seen. Bifemoral shunt is noted. No ret roperitoneal lymphadenopathy. MUSCULOSKELETAL: Superficial soft tissues: The superficial soft tissues are normal. Bones: Age appropriate degenerative changes of the spine. Postoperative changes in the lower lumbar a chuck. No hardware failure seen. Left femoral head AVN is noted. IMPRESSION: 1. No definite active bleeding seen. 2. increased density in the distal stomach is most likely artifactual. Active bleeding is not exclud ed although less likely. Follow-up advised. Gastrostomy seen in the stomach. 3. No evidence of appendicitis, diverticulitis or intestinal obstruction. Slightly thickened wall of the ascending colon which may indicate colitis. 4. AVN in the left femoral head. Reviewed, dictated and finalized at location A. IMPRESSION: 1. No definite active bleeding seen. 2. increased density in the distal stomach is most likely artifactual. Active bleeding is not excluded although less likely. Follow-up advised. Gastrostomy s een in the stomach. 3. No evidence of appendicitis, diverticulitis or intestinal obstruction. Slig htly thickened wall of the ascending colon which may indicate colitis. 4. AVN in the left femoral head.
--- NOTE | ~2024-04-19 | XR_ITS ---
EXAMINATION: XR abdomen/kub 1V DATE: 04/24/2024 14:10 INDICATION: Gastrostomy tube placement. TECHNIQUE: A supine view of the abdomen on 2 radiographs was obtained. COMPARISON: None. FINDINGS: There are no dilated loops of bowel. There is gaseous distention of the stomach. A gastrost vitaly tube is in expected position overlying the stomach. There are changes of anterior and posterior f usion procedures in lumbar spine. There is a stent in left common iliac artery. Surgical clips in the right upper quadrant are likely from cholecystectomy. There is a total right hip arthroplasty. There is a catheter overlying the bladder. There is a stent in right superficial femoral artery. IMPRESSION: 1. Gastrostomy tube in expected position overlying the stomach. Reviewed, dictated and finalized at location A.
--- NOTE | ~2024-04-19 | CT_ITS ---
EXAMINATION: CT brain wo con DATE: 04/24/2024 21:06 INDICATION: Anisocoria. TECHNIQUE: Computed tomography (CT) of the head was performed without intravenous contrast. The mA wa s adjusted according to patient size. Iterative reconstruction technique was employed. The dose-lengt h product was 605.33 mGy-cm. COMPARISON: Head CT 04/23/2024 FINDINGS: There are scattered areas of low attenuation in the cerebral white matter. There is no intr acranial hemorrhage, acute infarction, or abnormal intracranial mass lesion. The ventricles are stephanie l in size. There are likely changes of left ocular lens replacement surgery. There is mild mucosal th ickening in the paranasal sinuses. There are bilateral mastoid effusions. IMPRESSION: 1. Stable moderate nonspecific cerebral white matter disease, which likely represents chronic small v essel ischemic disease. Reviewed, dictated and finalized at location A. IMPRESSION: 1. Stable moderate nonspecific cerebral white matter disease, which likely repr esents chronic small vessel ischemic disease.
--- NOTE | ~2024-04-19 | XR_ITS ---
XR chest 1V portable Ordering provider: Mayte Jo PA-C History: 68 years Female with . productive cough . Comparison: None. FINDINGS: MEDIASTINUM: The cardiac silhouette is not enlarged. Right Port-A-Cath with the tip overlying superio r vena cava. LUNGS: No infiltrates, effusions or pneumothorax. OTHER: No free air under the diaphragm. IMPRESSION: No acute cardiopulmonary pathology. Reviewed, dictated and finalized at location A.
--- NOTE | ~2024-04-19 | XR_ITS ---
Portable chest x-ray Comparison: 04/24/2024 Clinical History: Respiratory failure Findings: Endotracheal tube and right-sided Mediport remains in place. Diffuse interstitial pulmonar y lungs is unchanged. Cardiomediastinal silhouette is stable. Bones and soft tissues are unremarkabl e. Impression: Stable diffuse interstitial pattern of the lungs. Support tubes, as above. Reviewed, dictated and finalized at location . Impression: Stable diffuse interstitial pattern of the lungs. Support tubes, as above.
--- NOTE | ~2024-04-19 | US_ITS ---
EXAMINATION: US renal BI DATE: 04/24/2024 15:05 INDICATION: Acute renal insufficiency. TECHNIQUE: Multiple ultrasound grayscale images of the kidneys were obtained. COMPARISON: CT dated 04/24/2024 FINDINGS: The right kidney measures 10.6 x 4.5 x 5.4 cm. The left kidney measures 10.3 x 4.5 x 4.6 cm. The kidn eys demonstrate normal echogenicity. There is no hydronephrosis in either kidney. No stones identifi ed. The bladder is normal. IMPRESSION: 1. Normal kidneys without hydronephrosis. Reviewed, dictated and finalized at location A.
--- NOTE | ~2024-04-19 | XR_ITS ---
XR chest ET placement Ordering provider: Nasima Gallagher History: 68 years Female with . Intubation . Comparison: April 24, 2024 FINDINGS: MEDIASTINUM: The cardiac silhouette is not enlarged. Right Port-A-Cath with the tip overlying superio r vena cava. Endotracheal tube is seen above the shreya measuring 3.5 cm. LUNGS: No effusions or pneumothorax. Bilateral interstitial thickening suggestive of pneumonitis more prominent in the right mid and lower zone. Underlying fibrotic changes is not excluded. OTHER: No free air under the diaphragm. IMPRESSION: Bilateral interstitial thickening suggestive of pneumonitis. Underlying fibrotic changes is not exclu ded. Clinical correlation and follow-up advised Reviewed, dictated and finalized at location A. IMPRESSION: Bilateral interstitial thickening suggestive of pneumonitis. Underlying fibroti c changes is not excluded. Clinical correlation and follow-up advised
--- NOTE | ~2024-04-19 | CT_ITS ---
CT brain wo con Ordering provider: Moni Crouch APRN History: 68 years Female with . pupil changes . Comparison: None. Technique: CT of the head without contrast. Radiation reduction technique utilized.The dose-length product was 681 mGy-cm FINDINGS: BRAIN PARENCHYMA AND CSF SPACES: No midline shift, mass effect or hemorrhage. The brain parenchyma a nd CSF spaces are otherwise normal. Empty sella turcica is noted. VISUALIZED PARANASAL SINUSES: Bilateral ethmoid sinus disease. MASTOIDS: Bilateral mastoid air cells effusion posteriorly. BONES: The bones appear intact. SOFT TISSUES: Visualized nasopharynx is normal. Superficial soft tissues are normal. Left cataract surgery. IMPRESSION: No acute intracranial findings. Reviewed, dictated and finalized at location A.
--- NOTE | ~2024-04-19 | XR_ITS ---
XR abdomen gastric tube insert Ordering provider: Diogo Noble MD History: . peg tube placement . Comparison: None. FINDINGS: BOWEL: Gastrostomy tube is noted with contrast seen in the stomach and duodenum. Nonobstructive bowel gas pattern. ORGANOMEGALY: None. SIGNIFICANT PATHOLOGIC CALCIFICATIONS: None. OTHER: Postoperative changes in the spine and right hip. Stent in the left iliac artery. No free air is seen under the diaphragm. IMPRESSION: NO ACUTE ABDOMINAL FINDINGS. Gastrostomy tube with contrast seen in the stomach and duodenum. Reviewed, dictated and finalized at location A.
--- NOTE | ~2024-04-19 | CT_ITS ---
Non-contrast CT scan of the Abdomen and Pelvis Clinical indication: Neutropenic enterocolitis Technique: 2.5 mm axial scans were obtained through the abdomen and pelvis without intravenous or or al contrast. Dose reduction technique was used on this scan by utilizing automated exposure control a nd iterative reconstruction technique. The dose-length product (DLP) was 495.35 mGy-cm. COMPARISON: 04/22/2024 Findings: Images through the lung bases reveal minimal right pleural effusion and probable right bas ilar atelectatic change. Suspected emphysema at the lung bases.. The liver, spleen, pancreas, kidneys, and adrenals appear normal. Cholecystectomy clips are present. There are severe atherosclerotic calcifications of the aorta and iliac vessels. Femorofemoral bypass present. There is no evidence of bowel obstruction. Images through the pelvis were performed. There is no evidence of ascites or lymphadenopathy. Urinary bladder unremarkable. No pelvic mass seen. Probable AVN of the left femoral head. Impression: Minimal right pleural effusion and probable right basilar atelectatic change. Correlate for pneumonia . Probable emphysema the lung bases. No acute abnormality of the abdomen or pelvis pelvis otherwise. Reviewed, dictated and finalized at location . Impression: Minimal right pleural effusion and probable right basilar atelectatic change. C orrelate for pneumonia. Probable emphysema the lung bases. No acute abnormality of the abdomen or pelvis pelvis otherwise.
--- NOTE | ~2024-04-19 | XR_ITS ---
Portable chest x-ray Comparison: 04/19/2024 Clinical History: Tachycardia Findings: Right-sided Mediport is unchanged. Probable mild bibasilar chronic interstitial disease. N o acute pulmonary abnormality. Cardiomediastinal silhouette is stable. Bones and soft tissues are un remarkable. Impression: No acute abnormality evident. Probable mild bibasilar chronic interstitial disease and/or COPD change . Right-sided Mediport. Reviewed, dictated and finalized at location M. Impression: No acute abnormality evident. Probable mild bibasilar chronic interstitial dise ase and/or COPD change. Right-sided Mediport.
[2024-04-19 17:28] VITALS: BP 133/80; PULSE 95; RESP 18; TEMP 36.2; O2SAT 100
--- NOTE | 2024-04-19 20:42 | ED.NAVMDI ---
HPI - Nausea/Vomiting/Diarrhea General Chief complaint: Nausea/Vomiting/Diarrhea <Mayte Jo PA-C - Last Filed: 04/20/24 03:22> Stated complaint: N/V/D WEAK <Mayte Jo PA-C - Last Filed: 04/20/24 03:22> Time Seen by Provider: 04/19/24 20:13 <ELISA Mar Last Filed: 04/20/24 03:22> Source: patient <ELISA Mar Last Filed: 04/20/24 03:22> Mode of arrival: ambulatory <ELISA Mar Last Filed: 04/20/24 03:22> Limitations: no limitations <ELISA Mar Last Filed: 04/20/24 03:22> History of Present Illness HPI Narrative: This is a 68-year-old female that presents to the emergency department for nausea, vomiting, generalized weakness. Patient with cancer of the nasopharynx. Recently finished radiation treatment. She has had worsening nausea, vomiting. Decreased p.o. intake. Shows also had some diarrhea. Reports generalized weakness. She has also recently developed a productive cough. Denies fevers. <Mayte Jo PA-C - Last Filed: 04/20/24 03:22> Related Data Home medications: Home Medications Medication Instructions Recorded Confirmed aspirin 81 mg tablet,delayed 81 mg PO DAILY 07/14/19 04/20/24 release (Adult Low Dose Aspirin) lorazepam 0.5 mg tablet (Ativan) 0.5 mg PO DAILY PRN Anxiety 10/10/23 04/20/24 hydrocodone 5 mg-acetaminophen 325 1 tablet PO Q4H PRN Pain (Scale 01/25/24 04/20/24 mg tablet Score 4-6) rivaroxaban 2.5 mg tablet (Xarelto) 2.5 mg PO BID 01/25/24 04/20/24 hydrocodone-acetaminophen 10 mg BYMOUTH Q4H PRN Pain (Scale 04/20/24 04/20/24 Score 7-10) olanzapine 2.5 mg tablet 2.5 mg PO HS PRN Nausea 04/20/24 04/20/24 pantoprazole 20 mg tablet,delayed 20 mg PO DAILY 04/20/24 04/20/24 release paroxetine HCl 30 mg tablet 30 mg PO QAM 04/20/24 04/20/24 trazodone 100 mg tablet 100 mg PO HS 04/20/24 04/20/24 <Mayte Jo PA-C - Last Filed: 04/20/24 03:22> Allergies/Adverse reactions: Allergies Allergy/AdvReac Type Severity Reaction Status Date / Time No Known Allergies Allergy Verified 04/20/24 04:33 <Mayte Jo PA-C - Last Filed: 04/20/24 03:22> Review of Systems Review of Systems: CONSTITUTIONAL: Denies fever ENT: Reports congestion CARDIOVASCULAR: Denies chest pain RESPIRATORY: Reports cough GASTROINTESTINAL: Reports abdominal pain, nausea, vomiting, and diarrhea. NEUROLOGIC: Reports generalized weakness. 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 Anemia Atherosclerosis AVM (arteriovenous malformation) AVM (arteriovenous malformation) of colon Blood clotting disorder Carotid stenosis Cholecystectomy planned 1977 Chronic pain Diarrhea Dizziness Encounter for other specified surgical aftercare Encounter for venous access device care Port or catheter 2019 Femoral artery stenosis Bypass 2011 3 Stents in right leg Fibromyalgia GERD (gastroesophageal reflux disease) GI bleeding Secondary to AVMs H/O fracture H/O one miscarriage Heart disease Hemorrhoids Hernia 2002 History of nervous system or sense organ disease History of pancreatitis Histrionic behavior Hypertension (Unknown) Insomnia Iron deficiency Iron deficiency anemia Kidney stones Major depressive disorder Mycosis fungoides Osteoarthritis Pancreatitis Peripheral arterial disease with history of revascularization Port-A-Cath in place PVD (peripheral vascular disease) Rectal cancer Chemo and radiation [id number] Skin disorder Stroke TIA (transient ischemic attack) Vertigo Weight loss <Mayte Jo PA-C - Last Filed: 04/20/24 03:22> Surgical Hist
[2024-04-19 21:05] LABS: Alanine Aminotransferase 29 U/L (6-35); Albumin Level 3.8 g/dL (3.5-5.1); Alkaline Phosphatase 147 U/L (38-126); Anion Gap 9 mmol/L (4-12); Aspartate Amino Transferase 39 U/L (14-36); Bilirubin,Total 0.6 mg/dL (0.2-1.3); Blood Urea Nitrogen 31 mg/dL (7-17); Calcium 8.6 mg/dL (8.4-10.2); Carbon Dioxide 28 mmol/L (22-30); Chloride 100 mmol/L (98-107); Estimated CRCL calculation 33 ml/min; Estimated Glomerular Filt Rate 45; Glucose 94 mg/dL (65-110); Lipase 49 U/L (23-300); Potassium 2.8 mmol/L (3.4-5.0); Sodium 137 mmol/L (137-145)
[2024-04-19] MEDS: SODIUM CHLORIDE 0.9% IV 1,000 ML 999 ML IV CONT ×2 (21:21→22:37)
[2024-04-19] MEDS: diphenhydrAMINE HCl INJ 50 MG/ML VIAL 25 MG IV PUSH (21:21)
[2024-04-19] MEDS: METOCLOPRAMIDE HCL INJ 10 MG/2 ML VIAL IV PUSH (21:21)
[2024-04-19 21:27] LABS: Add Urine Microscopic? YES; Appearance Urine Clear (Clear); Bacteria Urine None Seen /hpf; Bilirubin Urine Negative (Negative); Blood Urine Negative (Negative); Color Urine Yellow (Yellow); Glucose Urine UA Negative (Negative); Ketones Urine 3+ mg/dL (Negative); Leukocyte Esterase Ur Negative LEU/UL (Negative); Need Manual Microscopic Reviewed; Nitrate Urine Negative (Negative); Non Pathogenic Casts 0-2; Protein Urine 2+ mg/dL (Negative); Specific Grav Ur 1.021 (1.001-1.035); Squamous Epithelial Cell Urine Few /hpf (Few); pH Urine 5.5 (5.0-9.0)
[2024-04-19 21:43] LABS: Magnesium 1.6 mg/dL (1.6-2.3)
[2024-04-19] MEDS: POTASSIUM CHLORIDE INJ 40 MEQ in SODIUM CHLORIDE 0.9% IV 500 ML 130 MEQ IVPB (21:45)
[2024-04-19 21:50] VITALS: BP 144/73; PULSE 66; RESP 18; O2SAT 100
[2024-04-19 22:24] LABS: Influenza A QL RT-PCR Negative (Negative); Influenza B QL RT-PCR Negative (Negative); RSV RNA, RT-PCR Negative (Negative); SARS-CoV-2 RNA PCR Negative (Negative)
[2024-04-19 23:32] VITALS: BP 161/63; PULSE 74; RESP 18; TEMP 37.4; O2SAT 100
[2024-04-20] VITALS (9 sets, daily range): BP systolic 135–161; BP diastolic 63–73; PULSE 64–81; RESP 13–18; TEMP 36.1–36.6; O2SAT 97–100; BMI 22.8
[2024-04-20] MEDS: ONDANSETRON INJ 4 MG/2 ML VIAL IV PUSH ×4 (00:16→16:57)
[2024-04-20] MEDS: LORazepam INJ (*CRX) 2 MG/ML VIAL 0.5 MG IV PUSH (01:59)
[2024-04-20] MEDS: MAGNESIUM SULF 1 GM/D5W 100 ML 1 GM/100 ML BAG IVPB (02:02)
[2024-04-20 02:12] LABS: Hemoglobin 8.1 g/dL (12.0-15.0); Immature Platelet Fraction Pct 1.8 % (0.9-11.2); Mean Corpuscular HGB Conc 33.8 g/dl (32-36); Mean Corpuscular Hemoglobin 33.3 pg (26-34); Mean Corpuscular Volume 98.8 fl (80-100); Mean Platelet Volume 9.8 fl (7.4-10.4); Platelet Count Result 61 k/mm3 (150-375); Red Blood Count 2.43 M/mm3 (4.2-5.4); Red Cell Distribution Width 15.4 % (11.5-14.5); White Blood Count 8.4 K/mm3 (4.5-10.0)
[2024-04-20 02:18] LABS: Band Neutrophils Percent 8 % (0-6); Eosinophils Absolute Manual 0.08 K/mm3 (0.02-0.50); Eosinophils Percent Manual 1 % (0-4); Lymphocytes Absolute Manual 0.25 K/mm3 (1.1-4.5); Monocytes Absolute Manual 0.58 K/mm3 (0.1-0.90); Monocytes Percent Manual 7 % (3-9); Neutrophils Absolute Manual 7.47 K/mm3 (1.7-7.2); Neutrophils Percent Manual 81 % (46-73); Platelet Estimate Decreased (Adequate); Schistocytes None Seen; Total Cells Counted 100
--- NOTE | 2024-04-20 03:06 | ECG_ITS ---
Test Date: 2024-04-20 04:38:43 Measurements Intervals [place] Rate: 63 P: 76 ME: 115 QRS: 75 QRSD: 96 T: 70 QT: 350 QTc: 359 Interpretive Statements SINUS RHYTHM WITH SHORT ME INTERVAL BASELINE ARTIFACT- I, II, III, AVR, AVL, AVF, V4 BORDERLINE ECG No previous ECG available for comparison Electronically Signed On 04-20-2024 09:02:19 CDT by Kristopher Locke D.O.
[2024-04-20 03:23] LABS: Toxigenic C. Diff POSITIVE (NEGATIVE)
[2024-04-20] MEDS: MORPHINE SULFATE (*CRX) 4 MG/ML INJ IV PUSH (03:52)
[2024-04-20] MEDS: FIDAXOMICIN 200 MG TABLET PO ×2 (04:01→16:54)
--- NOTE | 2024-04-20 04:51 | ADMGEN ---
This patient, Hunter Garcia, was admitted to 3 [facility] [place] Surg Room 319-01. Patient/family oriented to hospital policies and general routines including ID bracelet, bed and alarms, visiting hours, pain management, procedures, bathroom and other care routines, personal items, smoking policy, room service/diet, and visiting hours. Information on how to activate the Rapid Response Team has been discussed. Patient/Family are encouraged to report perceived risks to care and to ask questions if they do not understand what they are told or what they should do.
[2024-04-20] MEDS: SODIUM CHLORIDE 0.9% IV 1,000 ML 125 ML IV CONT (05:04)
[2024-04-20] MEDS: POTASSIUM CHLORIDE INJ 40 MEQ in SODIUM CHLORIDE 0.9% IV 500 ML 130 MEQ IVPB ×2 (05:05→11:18)
[2024-04-20] MEDS: MORPHINE SULFATE (*CRX) 2 MG/ML INJ IV PUSH (06:32)
[2024-04-20] MEDS: PROMETHAZINE HCL 25 MG/ML AMPUL 12.5 MG IV PUSH ×3 (07:45→19:43)
[2024-04-20 10:34] LABS: Hematocrit 22.6 % (37.0-47.0); Hemoglobin 7.4 g/dL (12.0-15.0); Mean Corpuscular HGB Conc 32.7 g/dl (32-36); Mean Corpuscular Hemoglobin 32.6 pg (26-34); Mean Corpuscular Volume 99.6 fl (80-100); Mean Platelet Volume 9.4 fl (7.4-10.4); Platelet Count Result 50 k/mm3 (150-375); Red Blood Count 2.27 M/mm3 (4.2-5.4); Red Cell Distribution Width 15.7 % (11.5-14.5); White Blood Count 6.2 K/mm3 (4.5-10.0)
[2024-04-20 10:43] LABS: Alanine Aminotransferase 22 U/L (6-35); Alkaline Phosphatase 87 U/L (38-126); Anion Gap 8 mmol/L (4-12); Aspartate Amino Transferase 33 U/L (14-36); Bilirubin,Total 0.5 mg/dL (0.2-1.3); Blood Urea Nitrogen 21 mg/dL (7-17); Calcium 7.1 mg/dL (8.4-10.2); Carbon Dioxide 23 mmol/L (22-30); Chloride 106 mmol/L (98-107); Estimated CRCL calculation 48 ml/min; Estimated Glomerular Filt Rate > 60; Glucose 76 mg/dL (65-110); Magnesium 1.5 mg/dL (1.6-2.3); Potassium 3.3 mmol/L (3.4-5.0); Sodium 137 mmol/L (137-145)
[2024-04-20] MEDS: HYDROcodone/acetaminophen (*CRX) 10-325 MG TABLET 1 TAB BY MOUTH (11:02)
[2024-04-20] MEDS: PANTOPRAZOLE SODIUM IV 40 MG VIAL IV PUSH ×2 (11:02→19:44)
[2024-04-20] MEDS: PARoxetine 10 MG TABLET 30 MG PO (11:02)
[2024-04-20] MEDS: HYDROcodone/acetaminophen (*CRX) 5-325 MG TABLET 1 TAB PO ×2 (13:19→16:58)
--- NOTE | 2024-04-20 16:20 | PM.IMHP ---
H&P: HPI History of Present Illness Date/Time: 04/20/24 16:20 Chief Complaint: General Weakness/N/V Narrative: Patient is a 68-year-old female who presented to the emergency department with complaints of nausea and vomiting with generalized weakness post chemotherapy and radiation. Patient has carcinoma of the nasopharnyx and just completed 30 days of chemotherapy and radiation since then she has been unable to tolerate oral intake due to taste in generalized oral pain. patient had had a PEG tube placed for supplemental nutrition. Patient presents to the emergency department tonight for worsening weakness, multiple episodes of diarrhea, and new productive cough. patient was admitted to the medical unit for further evaluation and treatment of severe dehydration, electrolyte abnormalities, C diff infection with a consult to dietitian and physical and occupational therapy. patient denied any chest pain, shortness a breath, abdominal pain, fever, chills or any recent sick contacts. 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 Anemia Atherosclerosis AVM (arteriovenous malformation) AVM (arteriovenous malformation) of colon Blood clotting disorder Carotid stenosis Cholecystectomy planned 1977 Chronic pain Diarrhea Dizziness Encounter for other specified surgical aftercare Encounter for venous access device care Port or catheter 2018 Femoral artery stenosis Bypass 2012 3 Stents in right leg Fibromyalgia GERD (gastroesophageal reflux disease) GI bleeding Secondary to AVMs H/O fracture H/O one miscarriage Heart disease Hemorrhoids Hernia 2001 History of nervous system or sense organ disease History of pancreatitis Histrionic behavior Hypertension (Unknown) Insomnia Iron deficiency Iron deficiency anemia Kidney stones Major depressive disorder Mycosis fungoides Osteoarthritis Pancreatitis Peripheral arterial disease with history of revascularization Port-A-Cath in place PVD (peripheral vascular disease) Rectal cancer Chemo and radiation [id number] Skin disorder Stroke TIA (transient ischemic attack) Vertigo Weight loss Surgical History Surgical History H/O elbow surgery Right 1983 H/O shoulder surgery Right 1976 H/O wrist surgery 1984 H/O: hysterectomy 1994 History of atherectomy 1979 History of fundoplication For Chaves's Esophagus 2002 History of hip replacement Right 2012 Previous back surgery Plates and screws in back S/P insertion of iliac artery stent 02/2017 S/P peripheral artery angioplasty with stent placement Status post femoropopliteal bypass surgery Family History Family History Mother Family history of chronic obstructive pulmonary disease Sibling Breast cancer Cancer of kidney Grandparent Stomach cancer Other Family history of malignant neoplasm Hypertension Social History Social History Smoking packs per day: 1 Smoking cigarettes per day: 20.0 Years smoked: 52 Smoking pack-years: 52.00 Smoking status: Former smoker Additional smoking assessment comments: currently vaping Alcohol intake: never Alcohol use details: Pt drinks occasionally. Substance use: current Substance use type: marijuana Other substance usage details: OCC. Do You Feel Safe in your Home?: Yes Lack of Transportation: No Lack of Food: Never True Current Housing: I Have Housing Concerned About Future Housing: No Difficulty Paying Gas/Electric Bills: No Difficulty Paying for Meds: No Currently Unemployed: No Education: Trade/Vocational Cer
[2024-04-20] MEDS: ACIDOPHILUS/BULGARICUS CHEWABLE TABLET 1 TABLET PO ×2 (16:54→19:44)
[2024-04-20] MEDS: MAGNESIUM SULF 2 GM/WATER 50ML 2 GM/50 ML BAG IVPB (16:59)
[2024-04-20] MEDS: traZODone HCL 50 MG TABLET 100 MG PO (19:44)
[2024-04-20] MEDS: OLANZapine 2.5 MG TABLET PO (19:44)
[2024-04-21] VITALS (18 sets, daily range): BP systolic 133–175; BP diastolic 58–70; PULSE 62–85; RESP 12–16; TEMP 36.2–36.8; O2SAT 97–100; BMI 22.8
[2024-04-21] MEDS: SODIUM CHLORIDE 0.9% IV 1,000 ML 125 ML IV CONT ×2 (01:04→17:30)
[2024-04-21] MEDS: FIDAXOMICIN 200 MG TABLET PO ×2 (03:23→17:27)
[2024-04-21] MEDS: ONDANSETRON INJ 4 MG/2 ML VIAL IV PUSH ×4 (03:23→21:25)
[2024-04-21] MEDS: PROMETHAZINE HCL 25 MG/ML AMPUL 12.5 MG IV PUSH ×3 (03:59→18:57)
[2024-04-21] MEDS: LORazepam (*CRX) 0.5 MG TABLET PO ×2 (04:01→11:25)
[2024-04-21] MEDS: HYDROcodone/acetaminophen (*CRX) 5-325 MG TABLET 1 TAB PO ×3 (05:39→17:28)
[2024-04-21 06:49] LABS: Hematocrit 21.6 % (37.0-47.0); Immature Platelet Fraction Pct 2.9 % (0.9-11.2); Mean Corpuscular HGB Conc 32.4 g/dl (32-36); Mean Corpuscular Hemoglobin 32.1 pg (26-34); Mean Corpuscular Volume 99.1 fl (80-100); Mean Platelet Volume 9.9 fl (7.4-10.4); Platelet Count Result 34 k/mm3 (150-375); Red Blood Count 2.18 M/mm3 (4.2-5.4); Red Cell Distribution Width 15.2 % (11.5-14.5)
[2024-04-21 07:00] LABS: Alanine Aminotransferase 20 U/L (6-35); Albumin Level 2.9 g/dL (3.5-5.1); Alkaline Phosphatase 76 U/L (38-126); Anion Gap 9 mmol/L (4-12); Aspartate Amino Transferase 29 U/L (14-36); Bilirubin,Total 0.4 mg/dL (0.2-1.3); Blood Urea Nitrogen 13 mg/dL (7-17); Calcium 6.8 mg/dL (8.4-10.2); Carbon Dioxide 19 mmol/L (22-30); Chloride 107 mmol/L (98-107); Estimated CRCL calculation 48 ml/min; Estimated Glomerular Filt Rate > 60; Glucose 63 mg/dL (65-110); Magnesium 1.5 mg/dL (1.6-2.3); Potassium 2.9 mmol/L (3.4-5.0); Sodium 135 mmol/L (137-145)
[2024-04-21] MEDS: MAGNESIUM SULF 2 GM/WATER 50ML 2 GM/50 ML BAG IVPB (08:34)
[2024-04-21] MEDS: POTASSIUM CHLORIDE INJ 40 MEQ in SODIUM CHLORIDE 0.9% IV 500 ML 130 MEQ IVPB (08:34)
[2024-04-21] MEDS: MULTIVITAMINS THERAPEUTIC TAB (*BKC) 1 TABLET PO (08:35)
[2024-04-21] MEDS: hydrALAZINE HCL 25 MG TABLET PO ×2 (08:35→17:27)
[2024-04-21] MEDS: PARoxetine 10 MG TABLET 30 MG PO (08:35)
[2024-04-21] MEDS: ACIDOPHILUS/BULGARICUS CHEWABLE TABLET 1 TABLET PO ×4 (08:35→20:21)
[2024-04-21] MEDS: POTASSIUM CHLORIDE 20 MEQ PACKET (FOR LIQUID) 40 MEQ FEED TUBE (08:35)
[2024-04-21] MEDS: FOLIC ACID 1 MG TABLET PO (08:35)
[2024-04-21] MEDS: PANTOPRAZOLE SODIUM IV 40 MG VIAL IV PUSH ×2 (08:36→20:25)
[2024-04-21 08:53] LABS: Iron 127 ug/dL (37-170)
[2024-04-21 09:02] LABS: Percent Iron Saturation 57 % (20-50)
[2024-04-21] MEDS: ALBUMIN HUMAN 25% 25 GM/100 ML 200 ML IVPB (11:25)
--- NOTE | 2024-04-21 13:17 | P.PNIM_ITS ---
Progress Note: A&P Assessment and Plan (1) C. difficile diarrhea: Code(s): A04.72 - Enterocolitis due to Clostridium difficile, not specified as recurrent Status: Acute Assessment and Plan: * C diff positive * likely secondary to post radiation and chemotherapy * Dificid times 10 days * probiotic * PPI * replace electrolytes as needed * IV fluids for hydration 04/21/24: * Stool cultures pending * diarrhea improving (2) Hypokalemia: Code(s): E87.6 - Hypokalemia Status: Acute Assessment and Plan: * K+ 2.9 POA * replenished * BMP daily * cardiac monitoring 04/21/24 * Still low with diarrhea * replenished (3) Magnesium deficiency: Code(s): E61.2 - Magnesium deficiency Status: Acute Assessment and Plan: * mag 1.5 * 2g replenished * daily magnesium * poor appetite 04/21/24 * Still low with diarrhea * replenished (4) Anemia: Qualifiers: Anemia type: unspecified type Qualified Code(s): D64.9 - Anemia, unspecified Code(s): D64.9 - Anemia, unspecified Status: Acute Assessment and Plan: * Hgb 8.1>7.4 * likely secondary to chemo on radiation as well as some dilution * no evidence of GIB * holding her Eliquis and ASA * HGB daily * transfuse PRBC if HGB less than 7.0 04/21/24 * HGB 7.0 * Occult stool ordered * HX AVM * CT ABD pending * GI consulted * PPI * Iron Panel * follow-up H&H (5) Weight loss: Code(s): R63.4 - Abnormal weight loss Status: Acute Assessment and Plan: * secondary to poor oral intake from the chemo and radiation * take tube in place for supplemental nutrition * dietitian consulted * will add folic acid and multivitamin (6) Generalized weakness: Code(s): R53.1 - Weakness Status: Acute Assessment and Plan: * secondary to post chemo and radiation, poor appetite, dehydration, in C diff infection * IV fluids * ABX for C diff * PT/OT (7) Pancytopenia: Code(s): D61.818 - Other pancytopenia Status: Acute Assessment and Plan: * secondary to chemo/radiation? * holding Eliquis and ASA * PLT 50 * transfuse FFP if under 15 * WBC 3.0 (8) Moderate protein-calorie malnutrition: Code(s): E44.0 - Moderate protein-calorie malnutrition Status: Acute Assessment and Plan: * secondary to poor oral intake from the chemo and radiation painful to chew, taste bad and smells make her nauseous * Peg tube in place for supplemental nutrition * Tube feeding started * dietitian consulted * will add folic acid and multivitamin Plan Code status: Full code per batsheva
--- NOTE | 2024-04-21 13:17 | PM.IMPN ---
Progress Note: A&P Assessment and Plan (1) C. difficile diarrhea: Code(s): A04.72 - Enterocolitis due to Clostridium difficile, not specified as recurrent Status: Acute Assessment and Plan: C diff positive likely secondary to post radiation and chemotherapy Dificid times 10 days probiotic PPI replace electrolytes as needed IV fluids for hydration 04/21/24: Stool cultures pending diarrhea improving (2) Hypokalemia: Code(s): E87.6 - Hypokalemia Status: Acute Assessment and Plan: K+ 2.9 POA replenished BMP daily cardiac monitoring 04/21/24 Still low with diarrhea replenished (3) Magnesium deficiency: Code(s): E61.2 - Magnesium deficiency Status: Acute Assessment and Plan: mag 1.5 2g replenished daily magnesium poor appetite 04/21/24 Still low with diarrhea replenished (4) Anemia: Qualifiers: Anemia type: unspecified type Qualified Code(s): D64.9 - Anemia, unspecified Code(s): D64.9 - Anemia, unspecified Status: Acute Assessment and Plan: Hgb 8.1>7.4 likely secondary to chemo on radiation as well as some dilution no evidence of GIB holding her Eliquis and ASA HGB daily transfuse PRBC if HGB less than 7.0 04/21/24 HGB 7.0 Occult stool ordered HX AVM CT ABD pending GI consulted PPI Iron Panel follow-up H&H (5) Weight loss: Code(s): R63.4 - Abnormal weight loss Status: Acute Assessment and Plan: secondary to poor oral intake from the chemo and radiation take tube in place for supplemental nutrition dietitian consulted will add folic acid and multivitamin (6) Generalized weakness: Code(s): R53.1 - Weakness Status: Acute Assessment and Plan: secondary to post chemo and radiation, poor appetite, dehydration, in C diff infection IV fluids ABX for C diff PT/OT (7) Pancytopenia: Code(s): D61.818 - Other pancytopenia Status: Acute Assessment and Plan: secondary to chemo/radiation? holding Eliquis and ASA PLT 50 transfuse FFP if under 15 WBC 3.0 (8) Moderate protein-calorie malnutrition: Code(s): E44.0 - Moderate protein-calorie malnutrition Status: Acute Assessment and Plan: secondary to poor oral intake from the chemo and radiation painful to chew, taste bad and smells make her nauseous Peg tube in place for supplemental nutrition Tube feeding started dietitian consulted will add folic acid and multivitamin Plan Code status: Full code per patient DVT prophylaxis: SCDs Stress ulcer prophylaxis: Protonix 40 daily PT/OT notes: PT/OT pending rec's Disposition: patient was admitted to the medical unit for further treatment of dehydration, generalized weakness, C diff infection, anemia and electrolyte abnormalities. GI consult HX of AVM's pending recs. Time Spent With Patient Time with patient: 15 - 25 minutes Subjective Date/time seen: 04/21/24 13:17 Interval history: Patient is a 68 year old female admitted for severe weakness secondary to C-diff and poor appetite with electrolyte imbalances and pancytopenia. 04/21/24: Patient still reporting weakness, nausea, and loss of appetite. She did report HX of AVM some concerns for bleed patient with mild ABD pain. Review of Systems Review of Systems: All systems reviewed & are unremarkable except as noted in HPI and below Exam Narrative: Physical Exam: GENERAL: Pleasant chronically ill Alert and oriented x 3 female. No acute distress. Cachetic EYES: PERRLA. HEENT: dry mucous membranes. LUNGS: Clear to auscultation bilaterally. No accessory muscle use. CARDIOVASCULAR: Regular rate and rhythm. No murmur. No JVD. S1-S2 ABDOMEN: Soft, non tenderness and non-distended. Peg tube mid upper abdomen
--- NOTE | 2024-04-21 13:29 | P.CDI_ITS ---
CDI Query Clarification Request BMI: 22.8 Nutritional Diagnostic Statement: Please refer to the comprehensive nutrition assessment for further information. If you agree with diagnosis of Moderate protein calorie malnutrition related to swallowing difficulty due to nasopharyx cancer and treatment as evidenced by need for a PEG tube for nutrition support, a -7% weight loss x 1 month, and NFPE findings of moderate subcutaneous fat loss (cheeks) and moderate muscle wasting (moravian, clavicle). Please specify severity if known: * Mild * Moderate * Severe * Other/Unknown <Christie Ardno RN - Last Filed: 04/21/24 13:30> Clarified Diagnosis Clarified Diagnosis: Moderate protein calorie malnutrition <Courtney Rahman APRN - Last Filed: 04/21/24 13:46>
[2024-04-21 16:15] LABS: Hemoglobin 6.7 g/dL (12.0-15.0)
[2024-04-21 16:16] LABS: Hematocrit 20.3 % (37.0-47.0)
--- NOTE | 2024-04-21 17:25 | WPDGICN ---
Assessment and Plan Assessment and plan (1) Epigastric pain: Code(s): R10.13 - Epigastric pain Status: Acute (2) Appetite loss: Code(s): R63.0 - Anorexia Status: Acute (3) Nausea and vomiting: Qualifiers: Vomiting type: bilious vomiting Qualified Code(s): R11.14 - Bilious vomiting Code(s): R11.2 - Nausea with vomiting, unspecified Status: Acute (4) Pancytopenia: Code(s): D61.818 - Other pancytopenia Status: Acute (5) C. difficile diarrhea: Code(s): A04.72 - Enterocolitis due to Clostridium difficile, not specified as recurrent Status: Acute Plan 1) Epigastric pain/nausea/vomiting/appetite loss/PEG tube: Paternal grandfather history of stomach cancer. Last EGD 04/11/2023 revealed mild gastritis. Prior EGD in October of 2021 showed a single oozing AVM in the 2nd portion of the duodenum which was treated. patient recently completed chemotherapy and her 29th round of radiation for carcinoma of the nasopharynx. She has a PEG tube in place for supplemental nutrition. Since starting her cancer treatment she states that she has lost her appetite and is eating minimal p.o. intake. She denies any tube feedings over the past 4 days. She denies any odynophagia or dysphagia. Denies any hematemesis or melena. She is on aspirin and Xarelto prior to admission. continue b.i.d. PPI Continue supportive care with antiemetic care with NSAIDs, aspirin, anticoagulants will re-evaluate for possible endoscopic evaluation once patient is more stable EGD vs double ( thrombocytopenia, leukopenia, and hypokalemia) supplemental nutrition via PEG tube 2) Pancytopenia: Anemia likely multifactorial. She has a history of AVMs in the colon and duodenum that were previously treated in 2021. Chemotherapy may be a contributing factor. She denies any signs of active GI bleeding. Per patient she had a colonoscopy performed at [facility] in September to for anemia but per patient her colonoscopy was normal. H&H has been trending down over the past month. On 03/17/2024 HGB 13 and HCT 34. Most recent labs today show HGB 6.7 and hematocrit 20. Platelets 34. Total iron 127, TIBC 222, iron saturation 27%. The patient denies any signs of active GI bleeding to include hematemesis, hematochezia, or melena. Iron panel and fecal occult blood pending primary care team to continue monitoring H&H and transfuse as needed Consider hematology/oncology consult for additional recommendations 3) Diarrhea/ C-Diff: patient tested positive for C diff 04/20/2024 currently on Dificid. Per patient bowel frequency improved no BMs prior to our visit today. Thank you very much for allowing me to share in the care this very nice patient. This report may have been done utilizing a voice recognition system. Attempts have been made to correct errors. However, there may be uncorrected grammatical, spelling, and recognition errors present. GI Consult Note Consult date/time: 04/21/24 17:25 Reason for consult: Anemia HPI: This is a 68-year-old female with history of anal cancer in 1994 and had radiation, history of small bowel and colon AVMs, cholecystectomy, fibromyalgia, GERD a fundoplication for Chaves's esophagus in 2002, history of pancreatitis, HTN, depression, PVD, stroke, TIA, vertigo, hysterectomy, and personal history of colon polyps. She presented to the emergency room 04/19/2024 with complaints of nausea, vomiting, and weakness. GI has been consulted for anemia and history of AVMs. Patient complains of a dull intermittent epigastric pain that becomes sharp at times. This pain has been occurring for a few weeks and has no direct correlation with food intake or bowel movements. She has been experiencing frequent nausea and vomiting since starting chemotherapy. Patient states that she finished her last chemotherapy on Sunday and her radiation treatment number 29 on
[2024-04-21] MEDS: SODIUM CHLORIDE 0.9% IV 250 ML 30 ML IV CONT (17:30)
[2024-04-21] MEDS: traZODone HCL 50 MG TABLET 100 MG PO (20:21)
[2024-04-21] MEDS: IPRATROPIUM 0.5 MG/ALBUTEROL SULFATE 2.5 MG AMPUL.NEB 3 ML INHALATION (20:31)
[2024-04-22] VITALS (18 sets, daily range): BP systolic 109–164; BP diastolic 50–88; PULSE 62–110; RESP 12–18; TEMP 36.2–37.9; O2SAT 95–99
[2024-04-22] MEDS: ONDANSETRON INJ 4 MG/2 ML VIAL IV PUSH ×4 (04:21→20:23)
[2024-04-22] MEDS: FIDAXOMICIN 200 MG TABLET PO ×2 (04:21→15:35)
[2024-04-22] MEDS: SODIUM CHLORIDE 0.9% IV 1,000 ML 125 ML IV CONT (04:22)
[2024-04-22] MEDS: PROMETHAZINE HCL 25 MG/ML AMPUL 12.5 MG IV PUSH (07:08)
[2024-04-22 07:33] LABS: Hemoglobin 13.2 g/dL (12.0-15.0); Immature Platelet Fraction Pct 3.1 % (0.9-11.2); Mean Corpuscular HGB Conc 34.7 g/dl (32-36); Mean Corpuscular Hemoglobin 31.9 pg (26-34); Mean Corpuscular Volume 91.8 fl (80-100); Red Blood Count 4.14 M/mm3 (4.2-5.4); Red Cell Distribution Width 15.9 % (11.5-14.5)
[2024-04-22 07:41] LABS: Alanine Aminotransferase 17 U/L (6-35); Albumin Level 4.1 g/dL (3.5-5.1); Alkaline Phosphatase 90 U/L (38-126); Anion Gap 14 mmol/L (4-12); Aspartate Amino Transferase 28 U/L (14-36); Bilirubin,Total 1.6 mg/dL (0.2-1.3); Blood Urea Nitrogen 12 mg/dL (7-17); Calcium 7.9 mg/dL (8.4-10.2); Carbon Dioxide 19 mmol/L (22-30); Chloride 104 mmol/L (98-107); Estimated CRCL calculation 54 ml/min; Estimated Glomerular Filt Rate > 60; Glucose 109 mg/dL (65-110); Magnesium 1.1 mg/dL (1.6-2.3); Potassium 2.7 mmol/L (3.4-5.0); Sodium 137 mmol/L (137-145); White Blood Count 0.8 K/mm3 (4.5-10.0)
[2024-04-22 07:42] LABS: Platelet Count Result 18 k/mm3 (150-375)
[2024-04-22 07:55] LABS: IFOB Positive Control Positive; Immunochemical Fecal Occult Bl Positive (N)
[2024-04-22] MEDS: PARoxetine 10 MG TABLET 30 MG PO (09:01)
[2024-04-22] MEDS: ACIDOPHILUS/BULGARICUS CHEWABLE TABLET 1 TABLET PO ×3 (09:01→20:24)
[2024-04-22] MEDS: hydrALAZINE HCL 25 MG TABLET PO ×2 (09:01→17:58)
[2024-04-22] MEDS: FOLIC ACID 1 MG TABLET PO (09:01)
[2024-04-22] MEDS: MULTIVITAMINS THERAPEUTIC TAB (*BKC) 1 TABLET PO (09:01)
[2024-04-22] MEDS: PANTOPRAZOLE SODIUM IV 40 MG VIAL IV PUSH ×2 (09:02→20:24)
[2024-04-22] MEDS: POTASSIUM CHLORIDE INJ 40 MEQ in SODIUM CHLORIDE 0.9% IV 500 ML 130 MEQ IVPB (09:02)
[2024-04-22] MEDS: HYDROcodone/acetaminophen (*CRX) 5-325 MG TABLET 1 TAB PO ×2 (09:02→15:35)
[2024-04-22] MEDS: MAGNESIUM SULFATE 3GM/D5W100ML 3 GM/100 ML BAG IVPB (09:02)
[2024-04-22 10:46] LABS: Hematocrit 36.6 % (37.0-47.0); Hemoglobin 12.8 g/dL (12.0-15.0)
--- NOTE | 2024-04-22 10:50 | PCNFU ---
Nutrition Follow-Up Complete: Moderate protein calorie malnutrition related to swallowing difficulty due to nasopharyx cancer and treatment as evidenced by need for a PEG tube for nutrition support, a -7% weight loss x 1 month, and NFPE findings of moderate subcutaneous fat loss (cheeks) and moderate muscle wasting (uatsdin, clavicle). Goal:Meet estimated needs 100% via PEG tube and tube feeding Wt maintenance or gain Pt progressing towards goal, continue with same goal. Pt current nutrition is . Nutrition recommendation: Last recorded weight is 56.6 kg. Bowel Motility: +BM 04/22 - noted was bloody Labs Reviewed: K+:2.7, M.1 - on electrolyte repletion Meds Noted: zofran, protonix, KCL Skin: WNL Additional Notes: Nursing reports gave tube feed yesterday but has held since as pt does not feel well and had explosive bloody diarrhea this morning. GI is on case and evaluating. Noted electrolytes dropped after administration of tube feed from yesterday, are being replenished. Nursing to attempt another feed later today. Will monitor. Monitor tube feeding, tolerance, wt, labs. Follow up every sunday and sunday.
[2024-04-22] MEDS: LORazepam (*CRX) 0.5 MG TABLET PO (11:26)
--- NOTE | 2024-04-22 14:18 | P.PNIM_ITS ---
Progress Note: A&P Assessment and Plan (1) C. difficile diarrhea: Code(s): A04.72 - Enterocolitis due to Clostridium difficile, not specified as recurrent Status: Acute Assessment and Plan: * C diff positive * likely secondary to post radiation and chemotherapy * Dificid times 10 days * probiotic * PPI * replace electrolytes as needed * IV fluids for hydration 04/21/24: * Stool cultures pending * diarrhea improving (2) Hypokalemia: Code(s): E87.6 - Hypokalemia Status: Acute Assessment and Plan: * K+ 2.9 POA * replenished * BMP daily * cardiac monitoring 04/21/24 * Still low with diarrhea * replenished 04/22/24 * Continued to replenish (3) Magnesium deficiency: Code(s): E61.2 - Magnesium deficiency Status: Acute Assessment and Plan: * mag 1.5 * 2g replenished * daily magnesium * poor appetite 04/21/24 * Still low with diarrhea * replenished 04/22/24 * Continued to replenish (4) Anemia: Qualifiers: Anemia type: unspecified type Qualified Code(s): D64.9 - Anemia, unspecified Code(s): D64.9 - Anemia, unspecified Status: Acute Assessment and Plan: * Hgb 8.1>7.4 * likely secondary to chemo on radiation as well as some dilution * no evidence of GIB * holding her Eliquis and ASA * HGB daily * transfuse PRBC if HGB less than 7.0 04/21/24 * HGB 7.0 * Occult stool ordered * HX AVM * CT ABD pending * GI consulted * PPI * Iron Panel * follow-up H&H 04/22/24: * Hgb 6.7 * Transfused 2 Units PRBC * F/U Hgb 13 * Occult stool positive * Patient reporting blood in stoo * Hemodynamically stable (5) Weight loss: Code(s): R63.4 - Abnormal weight loss Status: Acute Assessment and Plan: * secondary to poor oral intake from the chemo and radiation * take tube in place for supplemental nutrition * dietitian consulted * will add folic acid and multivitamin 04/22/24: * Patient not tolerating oral or peg tube feeding * started on PPN (6) Generalized weakness: Code(s): R53.1 - Weakness Status: Acute Assessment and Plan: * secondary to post chemo and radiation, poor appetite, dehydration, in C diff infection * IV fluids * ABX for C diff * PT/OT (7) Pancytopenia: Code(s): D61.818 - Other pancytopenia Status: Acute Assessment and Plan: * secondary to chemo/radiation? * holding Eliquis and ASA * PLT 50 * transfuse FFP if under 15 * WBC 3.0 04/22/2024: * PLT 18 * Occult stool positive * Transfused 2 units FFP * holding Eliquis and ASA (8) Moderate protein-calorie malnutrition: Code(s): E44.0 - Moderate protein-calorie malnutrition Status:
--- NOTE | 2024-04-22 14:18 | PM.IMPN ---
Progress Note: A&P Assessment and Plan (1) C. difficile diarrhea: Code(s): A04.72 - Enterocolitis due to Clostridium difficile, not specified as recurrent Status: Acute Assessment and Plan: C diff positive likely secondary to post radiation and chemotherapy Dificid times 10 days probiotic PPI replace electrolytes as needed IV fluids for hydration 04/21/24: Stool cultures pending diarrhea improving (2) Hypokalemia: Code(s): E87.6 - Hypokalemia Status: Acute Assessment and Plan: K+ 2.9 POA replenished BMP daily cardiac monitoring 04/21/24 Still low with diarrhea replenished 04/22/24 Continued to replenish (3) Magnesium deficiency: Code(s): E61.2 - Magnesium deficiency Status: Acute Assessment and Plan: mag 1.5 2g replenished daily magnesium poor appetite 04/21/24 Still low with diarrhea replenished 04/22/24 Continued to replenish (4) Anemia: Qualifiers: Anemia type: unspecified type Qualified Code(s): D64.9 - Anemia, unspecified Code(s): D64.9 - Anemia, unspecified Status: Acute Assessment and Plan: Hgb 8.1>7.4 likely secondary to chemo on radiation as well as some dilution no evidence of GIB holding her Eliquis and ASA HGB daily transfuse PRBC if HGB less than 7.0 04/21/24 HGB 7.0 Occult stool ordered HX AVM CT ABD pending GI consulted PPI Iron Panel follow-up H&H 04/22/24: Hgb 6.7 Transfused 2 Units PRBC F/U Hgb 13 Occult stool positive Patient reporting blood in stoo Hemodynamically stable (5) Weight loss: Code(s): R63.4 - Abnormal weight loss Status: Acute Assessment and Plan: secondary to poor oral intake from the chemo and radiation take tube in place for supplemental nutrition dietitian consulted will add folic acid and multivitamin 04/22/24: Patient not tolerating oral or peg tube feeding started on PPN (6) Generalized weakness: Code(s): R53.1 - Weakness Status: Acute Assessment and Plan: secondary to post chemo and radiation, poor appetite, dehydration, in C diff infection IV fluids ABX for C diff PT/OT (7) Pancytopenia: Code(s): D61.818 - Other pancytopenia Status: Acute Assessment and Plan: secondary to chemo/radiation? 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 GI consult HX of AVM's pending recs as well as Oncology. 2 units of PRBC and FFP transfused. Time Spent With Patient Time with patient: 15 - 25 minutes Subjective Date/time seen: 04/22/24 14:18 Interval history: Patient is a 68 year old female admitted for severe weakness
[2024-04-22] MEDS: AMINO ACIDS 4.25%/D5W/LYTES/CA 2,000 ML 80 ML IV CONT (15:36)
[2024-04-22] MEDS: FAT EMULSIONS IV 20% 250 ML 20.83 ML IVPB (15:36)
--- NOTE | 2024-04-22 17:52 | WPDGIPROGNO ---
Progress Note: A&P Assessment and Plan (1) Nausea and vomiting: Qualifiers: Vomiting type: bilious vomiting Qualified Code(s): R11.14 - Bilious vomiting Code(s): R11.2 - Nausea with vomiting, unspecified Status: Acute Assessment and Plan: this also could be side effect from recent cancer treatment she is on tpn- I would recommend to try feeding by g-tube instead if possible medical support (2) Moderate protein-calorie malnutrition: Code(s): E44.0 - Moderate protein-calorie malnutrition Status: Acute Assessment and Plan: anorexia, nausea no need to do egd now (3) Pancytopenia: Code(s): D61.818 - Other pancytopenia Status: Acute Assessment and Plan: probably from cancer treatment no signs of gib hem-onc to see (4) C. difficile diarrhea: Code(s): A04.72 - Enterocolitis due to Clostridium difficile, not specified as recurrent Status: Acute Assessment and Plan: on treatment (5) Hypokalemia: Code(s): E87.6 - Hypokalemia Status: Acute Assessment and Plan: repleting (6) Primary squamous cell carcinoma of head and neck: Code(s): C76.0 - Malignant neoplasm of head, face and neck Status: Acute Subjective Date/time seen: 04/22/24 17:52 Interval history: she has diarrhea and nauseous, on tpn- she has not been using peg tube- claims that makes her sick (I talked to her daughter) still with generalized weakness hgb better after blood transfusion, no signs of gib Review of Systems Review of Systems: All systems reviewed & are unremarkable except as noted in HPI and below Exam Const: General: comfortable Other: cachectic HENMT: Face/Nose/Sinus: Normal nares present Eyes: General: appearance normal, both eyes and all related structures Neck: Neck: supple Resp: Effort & Inspection: normal respiratory effort Cardio: Rate: regular rate GI: GI Palp: Yes Soft to palpation and No Tenderness to palpation present (GI) Auscultation: normal bowel sounds Other: g-tube in place Skin: General skin exam: normal color Neuro: Speech: normal speech Extrem: General: normal to inspection Psych: Affect: Anxious affect present Objective Data Vital Signs Vital Signs: Vital Signs - 24 hr 04/21/24 18:52 04/21/24 19:08 04/21/24 20:31 Temperature 97.9 F 97.8 F Pulse Rate 85 74 75 Respiratory Rate 14 14 16 Blood Pressure 174/66 H 153/60 H Pulse Oximetry 99 100 Oxygen Delivery 04/21/24 21:12 04/21/24 20:08 04/21/24 21:08 Temperature 97.5 F L 97.5 F L 97.6 F Pulse Rate 78 78 74 Respiratory Rate 13 14 16 Blood Pressure 133/65 133/65 161/69 H Pulse Oximetry 99 99 98 Oxygen Delivery 04/21/24 22:08 04/21/24 22:30 04/21/24 22:50 Temperature 98.1 F 98.2 F 98.2 F Pulse Rate 68 72 72 Respiratory Rate 16 14 14 Blood Pressure 160/68 H 170/66 H 170/66 H Pulse Oximetry 98 98 98 Oxygen Delivery 04/21/24 20:00 04/22/24 00:00 04/21/24 23:06 Temperature 98 F Pulse Rate 73 66 71 Respiratory Rate 13 Blood Pressure 157/70 H Pulse Oximetry 99 Oxygen Delivery 04/22/24 00:06 04/22/24 01:06 04/22/24 01:45 Temperature 97.5 F L 97.7 F 97.8 F Pulse Rate 70 74 72 Respiratory Rate 14 12 14 Blood Pressure 156/58 H 146/58 H 144/60 H Pulse Oximetry 98 98 98 Oxygen Delivery 04/22/24 04:00 04/22/24 05:45 04/22/24 08:55 Temperature 97.1 F L Pulse Rate 77 80 Respiratory Rate 12 Blood Pressure 164/67 H Pulse Oximetry 99 Oxygen Delivery Room Air 04/22/24 08:00 04/22/24 12:00 04/22/24 16:00 Temperature Pulse Rate 109 H 88 110 H Respiratory Rate Blood Pressure Pulse Oximetry Oxygen Delivery 04/22/24 14:00 Temperature 98.1 F Pulse Rate 62 Respiratory Rate 18 Blood Pressure 152/88 H Pulse Oximetry 95 Oxygen Delivery Intake/Output Intake/Output: Intake & Output 04/19/24 04/20/24 04/21/24 04/22/24 23:59
[2024-04-22] MEDS: SODIUM CHLORIDE 0.9% IV 250 ML 30 ML IV CONT (17:58)
[2024-04-22] MEDS: ACETAMINOPHEN 325 MG TABLET 650 MG PO (18:14)
[2024-04-22] MEDS: IPRATROPIUM 0.5 MG/ALBUTEROL SULFATE 2.5 MG AMPUL.NEB 3 ML INHALATION (19:57)
[2024-04-22] MEDS: traZODone HCL 50 MG TABLET 100 MG PO (20:23)
[2024-04-23] VITALS (19 sets, daily range): BP systolic 122–162; BP diastolic 52–80; PULSE 72–132; RESP 16–20; TEMP 36.8–39.6; O2SAT 95–98
[2024-04-23 00:01] LABS: Glucose Point of Care 210 mg/dl (65-105)
[2024-04-23] MEDS: ACETAMINOPHEN 325 MG TABLET 650 MG PO ×2 (01:05→06:48)
[2024-04-23] MEDS: IPRATROPIUM 0.5 MG/ALBUTEROL SULFATE 2.5 MG AMPUL.NEB 3 ML INHALATION ×2 (02:21→20:30)
[2024-04-23] MEDS: FIDAXOMICIN 200 MG TABLET PO ×2 (05:19→17:13)
[2024-04-23 05:47] LABS: Glucose Point of Care 153 mg/dl (65-105)
[2024-04-23 07:17] LABS: Alanine Aminotransferase 23 U/L (6-35); Albumin Level 3.6 g/dL (3.5-5.1); Alkaline Phosphatase 53 U/L (38-126); Anion Gap 11 mmol/L (4-12); Aspartate Amino Transferase 57 U/L (14-36); Bilirubin,Total 0.7 mg/dL (0.2-1.3); Blood Urea Nitrogen 25 mg/dL (7-17); Calcium 7.3 mg/dL (8.4-10.2); Carbon Dioxide 23 mmol/L (22-30); Chloride 95 mmol/L (98-107); Estimated CRCL calculation 35 ml/min; Estimated Glomerular Filt Rate 50; Glucose 138 mg/dL (65-110); Magnesium 1.4 mg/dL (1.6-2.3); Phosphorus 1.8 mg/dL (2.5-4.5); Potassium 2.4 mmol/L (3.4-5.0); Sodium 129 mmol/L (137-145)
[2024-04-23 07:31] LABS: Hematocrit 29.9 % (37.0-47.0); Hemoglobin 10.2 g/dL (12.0-15.0); Immature Platelet Fraction Pct 2.6 % (0.9-11.2); Mean Corpuscular HGB Conc 34.1 g/dl (32-36); Mean Corpuscular Hemoglobin 30.4 pg (26-34); Mean Platelet Volume 9.9 fl (7.4-10.4); Platelet Count Result 44 k/mm3 (150-375); Red Blood Count 3.36 M/mm3 (4.2-5.4); Red Cell Distribution Width 15.8 % (11.5-14.5)
[2024-04-23 07:43] LABS: White Blood Count 0.4 K/mm3 (4.5-10.0)
--- NOTE | 2024-04-23 08:08 | P.PNIM_ITS ---
Progress Note: A&P Assessment and Plan (1) C. difficile diarrhea: Code(s): A04.72 - Enterocolitis due to Clostridium difficile, not specified as recurrent Status: Acute Assessment and Plan: * C diff positive * likely secondary to post radiation and chemotherapy * Dificid times 10 days * probiotic * PPI * replace electrolytes as needed * IV fluids for hydration at 45 ml per hour in addition to her PPN at 80 ml per hour * Stool cultures negative * diarrhea improving?? * febrile today 103---improved with Tylenol (2) Hypokalemia: Code(s): E87.6 - Hypokalemia Status: Acute Assessment and Plan: * Continues to have profound electrolyte abnormalities. Hypokalemia, Hypomagnesemia, hypophosphatemia, hyponatremia. * Receiving IV replacements potassium phosphorus 40 mmol, PO K+ 20 meq, magnesium 3 grams, and started on NS gtt, repeating BMP this evening * BMP daily * cardiac monitoring (3) Anemia: Qualifiers: Anemia type: unspecified type Qualified Code(s): D64.9 - Anemia, unspecified Code(s): D64.9 - Anemia, unspecified Status: Acute Assessment and Plan: * Hgb 8.1>7.4 * likely secondary to chemo on radiation as well as some dilution * holding her Eliquis and ASA * transfuse PRBC if HGB less than 7.0 * HX AVM * CT ABD shows colitis * GI consulted, rec's appreciated. Would recommend resuming tube feeding and stopping PPN, no need for scope, rectal bleeding is likely from colitis. * PPI * Iron Panel * Transfused 2 Units PRBC on 04/22 * Occult stool positive * Patient reporting blood in stool, likely from c-diff. (4) Weight loss: Code(s): R63.4 - Abnormal weight loss Status: Acute Assessment and Plan: * secondary to poor oral intake from the chemo and radiation * take tube in place for supplemental nutrition * dietitian consulted * will add folic acid and multivitamin * Currently on PPN * Planning on trickle tube feeds in the am with scheduled reglan (5) Generalized weakness: Code(s): R53.1 - Weakness Status: Acute Assessment and Plan: * secondary to post chemo and radiation, poor appetite, dehydration, in C diff infection * IV fluids * ABX for C diff * PT/OT (6) Pancytopenia: Code(s): D61.818 - Other pancytopenia Status: Acute Assessment and Plan: * secondary to chemo/radiation? * transfuse FFP if under 15 * PLT 18 * Occult stool positive * Transfused 2 units FFP 04/22 * holding Eliquis and ASA * Neupogen started today * WBC 0.4 * CT head, chest negative. Given her profound fever and complaints of productive sputum CT chest was obtained to rule out possible pneumonia vs pneumonitis. CT brain was obtained as the patient has left pupillary changes which her daughter thinks is new. NIH 1. CT brain was negative but does comment left cataract surgery which could explain discrepancy.
--- NOTE | 2024-04-23 08:08 | PM.IMPN ---
Progress Note: A&P Assessment and Plan (1) C. difficile diarrhea: Code(s): A04.72 - Enterocolitis due to Clostridium difficile, not specified as recurrent Status: Acute Assessment and Plan: C diff positive likely secondary to post radiation and chemotherapy Dificid times 10 days probiotic PPI replace electrolytes as needed IV fluids for hydration at 45 ml per hour in addition to her PPN at 80 ml per hour Stool cultures negative diarrhea improving?? febrile today 103---improved with Tylenol (2) Hypokalemia: Code(s): E87.6 - Hypokalemia Status: Acute Assessment and Plan: Continues to have profound electrolyte abnormalities. Hypokalemia, Hypomagnesemia, hypophosphatemia, hyponatremia. Receiving IV replacements potassium phosphorus 40 mmol, PO K+ 20 meq, magnesium 3 grams, and started on NS gtt, repeating BMP this evening BMP daily cardiac monitoring (3) Anemia: Qualifiers: Anemia type: unspecified type Qualified Code(s): D64.9 - Anemia, unspecified Code(s): D64.9 - Anemia, unspecified Status: Acute Assessment and Plan: Hgb 8.1>7.4 likely secondary to chemo on radiation as well as some dilution holding her Eliquis and ASA transfuse PRBC if HGB less than 7.[address] ABD shows colitis GI consulted, rec's appreciated. Would recommend resuming tube feeding and stopping PPN, no need for scope, rectal bleeding is likely from colitis. PPI Iron Panel Transfused 2 Units PRBC on 04/22 Occult stool positive Patient reporting blood in stool, likely from c-diff. (4) Weight loss: Code(s): R63.4 - Abnormal weight loss Status: Acute Assessment and Plan: secondary to poor oral intake from the chemo and radiation take tube in place for supplemental nutrition dietitian consulted will add folic acid and multivitamin Currently on PPN Planning on trickle tube feeds in the am with scheduled reglan (5) Generalized weakness: Code(s): R53.1 - Weakness Status: Acute Assessment and Plan: secondary to post chemo and radiation, poor appetite, dehydration, in C diff infection IV fluids ABX for C diff PT/OT (6) Pancytopenia: Code(s): D61.818 - Other pancytopenia Status: Acute Assessment and Plan: secondary to chemo/radiation? transfuse FFP if under 15 PLT 18 Occult stool positive Transfused 2 units FFP 04/22 holding Eliquis and ASA Neupogen started today WBC 0.4 CT head, chest negative. Given her profound fever and complaints of productive sputum CT chest was obtained to rule out possible pneumonia vs pneumonitis. CT brain was obtained as the patient has left pupillary changes which her daughter thinks is new. NIH 1. CT brain was negative but does comment left cataract surgery which could explain discrepancy. 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 Subjective Date/time seen: 04/23/24 08:08 Interval history: Mrs. Garcia is not feeling well today. She is continuing to have loose stools and generalized weakness. T
[2024-04-23] MEDS: MULTIVITAMINS THERAPEUTIC TAB (*BKC) 1 TABLET PO (09:15)
[2024-04-23] MEDS: POTASSIUM CHLORIDE 20 MEQ PACKET (FOR LIQUID) FEED TUBE (09:15)
[2024-04-23] MEDS: ONDANSETRON INJ 4 MG/2 ML VIAL IV PUSH ×3 (09:16→21:25)
[2024-04-23] MEDS: HYDROcodone/acetaminophen (*CRX) 10-325 MG TABLET 1 TAB BY MOUTH (09:16)
[2024-04-23] MEDS: FOLIC ACID 1 MG TABLET PO (09:16)
[2024-04-23] MEDS: PANTOPRAZOLE SODIUM IV 40 MG VIAL IV PUSH ×2 (09:16→20:59)
[2024-04-23] MEDS: ACIDOPHILUS/BULGARICUS CHEWABLE TABLET 1 TABLET PO ×3 (09:16→20:59)
[2024-04-23] MEDS: hydrALAZINE HCL 25 MG TABLET PO ×2 (09:16→17:13)
[2024-04-23] MEDS: PARoxetine 10 MG TABLET 30 MG PO (09:16)
[2024-04-23] MEDS: POTASSIUM PHOS,M-BASIC-D-BASIC 40 MMOL in SODIUM CHLORIDE 0.9% IV 250 ML 43.89 MMOL IVPB (09:52)
[2024-04-23] MEDS: MAGNESIUM SULF 2 GM/WATER 50ML 2 GM/50 ML BAG IVPB (09:53)
[2024-04-23] MEDS: ACETAMINOPHEN 325 MG TABLET PO (10:03)
--- NOTE | 2024-04-23 10:17 | PCRCNOTE ---
Window of time for administration has passed. See next scheduled administration.
--- NOTE | 2024-04-23 10:37 | PCNFU ---
Nutrition Follow-Up Complete: Moderate protein calorie malnutrition related to swallowing difficulty due to nasopharyx cancer and treatment as evidenced by need for a PEG tube for nutrition support, a -7% weight loss x 1 month, and NFPE findings of moderate subcutaneous fat loss (cheeks) and moderate muscle wasting (quaker, clavicle). Meet estimated needs 100% via PEG tube and tube feeding - not able to meet goal because of vomiting. PPN started to meet nutrition needs Wt maintenance or gain - Goal being met Goal: Pt current nutrition is PPN Clinmix E 4.25/5 @ rate 80 ml/h: 1153 kcal (~76% EER), 82 g protein, 2170 ml total volume. Nutrition recommendation: Continue with current PPN until able to meet needs with PEG tube Last recorded weight is 56.6 kg. Bowel Motility: +1 BM 04/23/24 Labs Reviewed: Hgb 10.2, Hct 29.9, Na 129, K+ 2.4, BUN 25, Cre 1.1, Glu 138 Meds Noted: Zofran, protonix, Kcl Skin: No skin issues. Has existing PEG Additional Notes: Pt has PEG tube d/t cancer. Could not tolerate tube feeding so PPN was started. Also has c-diff. Recommend continuing PPN at same rate for now, until N/v/diarrhea is under control. Monitor tube feeding, tolerance, wt, labs. Follow up every sunday and sunday.
[2024-04-23 11:40] LABS: Glucose Point of Care 144 mg/dl (65-105)
--- NOTE | 2024-04-23 12:47 | PDONCCN ---
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 She completed cycle 3 of chemotherapy about 10 days ago. She also has completed radiation therapy treatment. She came into the hospital with nausea vomiting along with generalize weakness and failure to thrive. She started having diarrhea. C diff testing came back positive. Patient stop using PEG tube due to itching. Currently she is on TPN. Labs showed drop in WBC count down to 0.4. Platelet 44,000. Patient received 2 units of platelets and 2 units of packed red blood cells. She remains quite tired and fatigued. No other new complaints. Review of Systems - Review of Systems All systems reviewed & are unremarkable except as noted in [facility] and [facility] Medical History: Medical History (Last Reviewed 04/20/24 @ 16:25 by Courtney Rahman APRN) Anal disorder 1994-Sqamous cell with Dr. 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 Anemia Atherosclerosis AVM (arteriovenous malformation) AVM (arteriovenous malformation) of colon Blood clotting disorder Carotid stenosis Cholecystectomy planned 1977 Chronic pain Diarrhea Dizziness Encounter for other specified surgical aftercare Encounter for venous access device care Port or catheter 2019 Femoral artery stenosis Bypass 2012 3 Stents in right leg Fibromyalgia GERD (gastroesophageal reflux disease) GI bleeding Secondary to AVMs H/O fracture H/O one miscarriage Heart disease Hemorrhoids Hernia 2001 History of nervous system or sense organ disease History of pancreatitis Histrionic behavior Hypertension Onset Date: Unknown Insomnia Iron deficiency Iron deficiency anemia Kidney stones Major depressive disorder Mycosis fungoides Osteoarthritis Pancreatitis Peripheral arterial disease with history of revascularization Port-A-Cath in place PVD (peripheral vascular disease) Rectal cancer Chemo and radiation [id number] Skin disorder Stroke TIA (transient ischemic attack) Vertigo Weight loss Surgical History: Surgical History (Last Reviewed 01/28/24 @ 10:03 by Tray Boykin MD) H/O elbow surgery Right 1983 H/O shoulder surgery Right 1976 H/O wrist surgery 1984 H/O: hysterectomy 1994 History of atherectomy 1979 History of fundoplication For Chaves's Esophagus 2002 History of hip replacement Right 2013 Previous back surgery Plates and screws in back S/P insertion of iliac artery stent 02/2017 S/P peripheral artery angioplasty with stent placement Status post femoropopliteal bypass surgery Family History: Family History (Last Reviewed 01/28/24 @ 10:03 by Tray Boykin MD) Mother Family history of chronic obstructive pulmonary disease Sibling Breast cancer Cancer of kidney Grandparent Stomach cancer Other Family history of malignant neoplasm Hypertension - Social History Social History: Social History (Last Reviewed 01/28/24 @ 10:03 by Tray Boykin MD) Alcohol Use: Alcohol intake: never Alcohol use details: Pt drinks occasionally. Substance Use: Substance use: current Substance use type: marijuana Other substance usage details: OCC. Others: Spiritual care concerns: No Living Arrangements: Living arrangements: alone Smoking Status: Smoking status: Former smoker Smoking Pack-years: Smoking packs per day: 1 Smoking cigarettes per day: 20.0 Years smoked: 52 Smoking pack-years: 52.00 Comments: Additional smoking assessment comments: currently vaping Social Determinants of Health: Do You Feel Safe in your Home?: Yes Has the Lack of Transportation Kept You From
--- NOTE | 2024-04-23 14:37 | PC.NURSE ---
Patient brought down from 3rd med/surg via bed accompanied by 2 nurses at 1437. Patient acclimated to floor and room.
[2024-04-23 14:55] LABS: Triglycerides 136 mg/dL (<150)
--- NOTE | 2024-04-23 15:14 | PCPTNOTE ---
The patient treatment was not able to be completed due to patient transfer to IMU due to change in medical status.
[2024-04-23] MEDS: AMINO ACIDS 4.25%/D5W/LYTES/CA 2,000 ML 80 ML IV CONT (15:37)
[2024-04-23] MEDS: FAT EMULSIONS IV 20% 250 ML 20.83 ML IVPB (15:39)
[2024-04-23] MEDS: SODIUM CHLORIDE 0.9% IV 1,000 ML 45 ML IV CONT (15:49)
[2024-04-23 16:05] LABS: Folic Acid 8.9 ng/mL (2.76->20); Vitamin B12 > 1000.0 pg/mL (239-931)
--- NOTE | 2024-04-23 16:30 | WPDGIPROGNO ---
Progress Note: A&P Assessment and Plan (1) C. difficile diarrhea: Code(s): A04.72 - Enterocolitis due to Clostridium difficile, not specified as recurrent Status: Acute Assessment and Plan: on dificid this can explain blood in stool no indication for colonoscopy will follow as needed (2) Neutropenic fever: Code(s): D70.9 - Neutropenia, unspecified; R50.81 - Fever presenting with conditions classified elsewhere Status: Acute Assessment and Plan: high fever today and neutropenia oncology on board chemotherapy last week neupogen and antibiotics by primary team (3) Occult blood in stools: Code(s): R19.5 - Other fecal abnormalities Status: Acute Assessment and Plan: this is setting of c diff, low platelets no need of scopes (4) Nausea and vomiting: Qualifiers: Vomiting type: bilious vomiting Qualified Code(s): R11.14 - Bilious vomiting Code(s): R11.2 - Nausea with vomiting, unspecified Status: Acute Assessment and Plan: family says that patient did not want to use peg because will cause diarrhea recommend to use peg tube instead of tpn she is malnourished with more nausea and failure to thrive after chemotherapy (5) Pancytopenia: Code(s): D61.818 - Other pancytopenia Status: Acute (6) Moderate protein-calorie malnutrition: Code(s): E44.0 - Moderate protein-calorie malnutrition Status: Acute (7) Primary squamous cell carcinoma of head and neck: Code(s): C76.0 - Malignant neoplasm of head, face and neck Status: Acute Subjective Date/time seen: 04/23/24 16:30 Interval history: fever today, earlier she was confused, fatigue Review of Systems Review of Systems: All systems reviewed & are unremarkable except as noted in HPI and below Exam Const: Other: cachectic, awake but more lethargic HENMT: Face/Nose/Sinus: Normal nares present Eyes: General: appearance normal, both eyes and all related structures Neck: Neck: supple Resp: Effort & Inspection: normal respiratory effort Cardio: Rate: regular rate GI: GI Palp: Yes Soft to palpation and No Tenderness to palpation present (GI) Auscultation: normal bowel sounds Other: g-tube in place Skin: General skin exam: normal color Neuro: Speech: normal speech Extrem: General: normal to inspection Psych: Affect: Anxious affect present Objective Data Vital Signs Vital Signs: Vital Signs - 24 hr 04/22/24 17:55 04/22/24 18:12 04/22/24 19:57 Temperature 99.1 F 99.1 F Pulse Rate 105 H 99 77 Respiratory Rate 16 16 18 Blood Pressure 109/70 129/64 Pulse Oximetry 98 99 Oxygen Delivery 04/22/24 20:06 04/22/24 20:53 04/22/24 23:33 Temperature 100.2 F H 99.1 F Pulse Rate 76 97 108 H Respiratory Rate 18 18 16 Blood Pressure 118/50 L 157/81 H Pulse Oximetry 97 97 Oxygen Delivery 04/22/24 20:00 04/22/24 23:48 04/23/24 00:00 Temperature 99.7 F H Pulse Rate 96 103 H 103 H Respiratory Rate 18 Blood Pressure 137/83 Pulse Oximetry 98 Oxygen Delivery 04/23/24 00:48 04/23/24 01:48 04/23/24 02:22 Temperature 102.4 F H 102.9 F H Pulse Rate 107 H 108 H 72 Respiratory Rate 20 20 18 Blood Pressure 150/62 H 162/66 H Pulse Oximetry 95 97 Oxygen Delivery 04/23/24 02:30 04/23/24 02:05 04/23/24 05:37 Temperature 100.2 F H 100.2 F H Pulse Rate 77 99 Respiratory Rate 18 18 Blood Pressure 122/52 L Pulse Oximetry 95 Oxygen Delivery 04/23/24 04:00 04/23/24 10:03 04/23/24 09:15 Temperature 103.2 F H Pulse Rate 102 H Respiratory Rate Blood Pressure Pulse Oximetry Oxygen Delivery Room Air 04/23/24 08:00 04/23/24 11:15 04/23/24 12:00 Temperature 98.6 F Pulse Rate 93 96 Respiratory Rate Blood Pressure Pulse Oximetry Oxygen Delivery Intake/Output Intake/Output: Intake & Output 04/20/24 04/21/24 04/22/24 04/23/24 23:
[2024-04-23 19:19] LABS: Glucose Point of Care 140 mg/dl (65-105)
[2024-04-23 20:17] LABS: Anion Gap 10 mmol/L (4-12); Blood Urea Nitrogen 27 mg/dL (7-17); Calcium 6.8 mg/dL (8.4-10.2); Carbon Dioxide 20 mmol/L (22-30); Chloride 98 mmol/L (98-107); Estimated CRCL calculation 35 ml/min; Estimated Glomerular Filt Rate 50; Glucose 130 mg/dL (65-110); Potassium 2.6 mmol/L (3.4-5.0); Sodium 128 mmol/L (137-145)
--- NOTE | 2024-04-23 20:43 | PM.EVENT ---
Event Note Event Note Event Note: Cross Coverage: Despite repletion, potassium remains low at 2.6. 2.4 earlier today. Patient continues to have active nausea and vomiting. Will give 80 KCL p.o. (liquid) and 40 KCL IVPB. Recheck at 1:00 a.m. post infusion. Remains on telemetry.
[2024-04-23] MEDS: traZODone HCL 50 MG TABLET 100 MG PO (20:59)
[2024-04-23] MEDS: POTASSIUM CHLORIDE INJ 40 MEQ in SODIUM CHLORIDE 0.9% IV 500 ML 130 MEQ IVPB (21:04)
[2024-04-23 21:06] LABS: Magnesium 1.8 mg/dL (1.6-2.3); Phosphorus 3.6 mg/dL (2.5-4.5)
[2024-04-23] MEDS: CENTRAL LINE FLUSH 10 ML IV PUSH (23:56)
[2024-04-24] VITALS (48 sets, daily range): BP systolic 70–146; BP diastolic 35–92; PULSE 113–144; RESP 18–32; TEMP 36.9–39.8; O2SAT 95–100
[2024-04-24 00:31] LABS: Glucose Point of Care 140 mg/dl (65-105)
[2024-04-24] MEDS: PROMETHAZINE HCL 25 MG/ML AMPUL 12.5 MG IV PUSH (00:57)
--- NOTE | 2024-04-24 01:34 | PC.NURSE ---
Spoke with Dr. Brooks about patient remaining in sinus tachycardia throughout shift. Dr. Brooks stated to observe for pain & anxiety, treat as necessary. Patient reports no pain, anxiety, or SOB. No fever noted.
[2024-04-24 02:21] LABS: Anion Gap 12 mmol/L (4-12); Blood Urea Nitrogen 26 mg/dL (7-17); Carbon Dioxide 17 mmol/L (22-30); Chloride 101 mmol/L (98-107); Estimated CRCL calculation 35 ml/min; Estimated Glomerular Filt Rate 50; Glucose 132 mg/dL (65-110); Potassium 2.6 mmol/L (3.4-5.0); Sodium 130 mmol/L (137-145)
--- NOTE | 2024-04-24 02:35 | PCRCNOTE ---
Duoneb not given at this time due to patient heart rate 135, nurse notified.
[2024-04-24] MEDS: FIDAXOMICIN 200 MG TABLET PO ×2 (05:22→18:09)
[2024-04-24 05:37] LABS: Hematocrit 29.1 % (37.0-47.0); Hemoglobin 10.3 g/dL (12.0-15.0); Immature Platelet Fraction Pct 2.8 % (0.9-11.2); Mean Corpuscular HGB Conc 35.4 g/dl (32-36); Mean Corpuscular Hemoglobin 31.8 pg (26-34); Mean Corpuscular Volume 89.8 fl (80-100); Mean Platelet Volume 10.7 fl (7.4-10.4); Red Blood Count 3.24 M/mm3 (4.2-5.4); Red Cell Distribution Width 15.7 % (11.5-14.5)
[2024-04-24 05:40] LABS: Platelet Count Result 12 k/mm3 (150-375); White Blood Count 0.4 K/mm3 (4.5-10.0)
--- NOTE | 2024-04-24 05:47 | ECG_ITS ---
Test Date: 2024-04-24 06:23:57 Measurements Intervals [place] Rate: 137 P: -61 OH: 68 QRS: 69 QRSD: 89 T: 68 QT: 352 QTc: 533 Interpretive Statements SUPRAVENTRICULAR TACHYCARDIA MODERATE ST DEPRESSION [0.05+ mV ST DEPRESSION] Compared to ECG 04/20/2024 04:38:43 Junctional tachycardia now present ST (T wave) deviation now present Sinus rhythm no longer present Short [place] interval no longer present Electronically Signed On 04-24-2024 12:07:59 CDT by Gregory Manuel M.D.
[2024-04-24 06:07] LABS: Alanine Aminotransferase 31 U/L (6-35); Albumin Level 3.1 g/dL (3.5-5.1); Alkaline Phosphatase 47 U/L (38-126); Anion Gap 11 mmol/L (4-12); Aspartate Amino Transferase 100 U/L (14-36); Bilirubin,Total 0.9 mg/dL (0.2-1.3); Blood Urea Nitrogen 27 mg/dL (7-17); Calcium 6.9 mg/dL (8.4-10.2); Carbon Dioxide 18 mmol/L (22-30); Chloride 101 mmol/L (98-107); Estimated CRCL calculation 30 ml/min; Estimated Glomerular Filt Rate 41; Glucose 131 mg/dL (65-110); Magnesium 1.5 mg/dL (1.6-2.3); Phosphorus 2.2 mg/dL (2.5-4.5); Potassium 2.6 mmol/L (3.4-5.0); Sodium 130 mmol/L (137-145)
[2024-04-24] MEDS: CENTRAL LINE FLUSH 10 ML IV PUSH ×4 (06:33→20:40)
--- NOTE | 2024-04-24 06:47 | P.PNCROSS_ITS ---
Event Note Event Note Event Note: Patient has a palpitation, per nurse report, patient has a fever 103.4, and joseluis mejia had fever 103.[address] scan yesterday no acute abnormality Patient states she does not feel well, severe short worse EKG showed junctional rhythm tachycardia Patient blood pressure stable, pulse ox 95 on room air Patient is bradycardia, no murmur no gallop Tachypnea, lungs clear Abdomen soft no tenderness Patient's neutropenia, immunocompromised Order blood culture, urinalysis Start vancomycin cefepime IV Start metoprolol 5 mg IV push once, repeat EKG when heart rate slowed down Hold abdomen acid IV, possible reaction to the transfusion also
[2024-04-24] MEDS: METOPROLOL TARTRATE INJ 5 MG/5 ML VIAL IV PUSH (06:48)
[2024-04-24] MEDS: IPRATROPIUM 0.5 MG/ALBUTEROL SULFATE 2.5 MG AMPUL.NEB 3 ML INHALATION ×3 (06:52→20:23)
--- NOTE | 2024-04-24 06:53 | ECG_ITS ---
Test Date: 2024-04-24 07:00:23 Measurements Intervals [place] Rate: 114 P: -29 IA: 79 QRS: 73 QRSD: 89 T: 71 QT: 249 QTc: 344 Interpretive Statements SINUS TACHYCARDIA WITH SHORT IA INTERVAL NONSPECIFIC T-WAVE ABNORMALITY ABNORMAL RHYTHM ECG Compared to ECG 04/24/2024 06:23:57 Short IA interval now present T-wave abnormality now present Junctional tachycardia no longer present ST (T wave) deviation no longer present Electronically Signed On 04-24-2024 12:08:23 CDT by Gregory Manuel M.D.
[2024-04-24 08:16] LABS: Glucose Point of Care 129 mg/dl (65-105)
[2024-04-24] MEDS: FILGRASTIM-SNDZ 480 MCG/0.8 ML SYRINGE SUB-Q (09:42)
[2024-04-24] MEDS: CEFEPIME 2 GM/NS 50 ML 2 GM/50 ML BAG IVPB (09:43)
[2024-04-24] MEDS: VANCOMYCIN 1,500 MG/NS 500 ML 1,500 MG/500 ML BAG 250 MG IVPB (09:43)
[2024-04-24] MEDS: PANTOPRAZOLE SODIUM IV 40 MG VIAL IV PUSH ×2 (09:43→22:50)
[2024-04-24 11:04] LABS: Basophils Percent Auto 1.3 % (0.2-1.2); Hematocrit 29.8 % (37.0-47.0); Hemoglobin 10.3 g/dL (12.0-15.0); Immature Granulocyte Percent A 12.8 % (0-0.5); Immature Platelet Fraction Pct 3.9 % (0.9-11.2); Lymphocytes Percent Auto 12.8 % (18.3-44.2); Mean Corpuscular HGB Conc 34.6 g/dl (32-36); Mean Corpuscular Hemoglobin 31.6 pg (26-34); Mean Corpuscular Volume 91.4 fl (80-100); Monocytes Absolute Auto 0.1 K/mm3 (0.1-0.6); Monocytes Percent Auto 7.7 % (2.6-8.5); Neutrophils Absolute Auto 0.5 K/mm3 (1.3-6.7); Neutrophils Percent Auto 65.4 % (45.5-73.1); Red Blood Count 3.26 M/mm3 (4.2-5.4); Red Cell Distribution Width 15.9 % (11.5-14.5)
[2024-04-24] MEDS: SODIUM CHLORIDE 0.9% IV 500 ML IV CONT (11:04)
[2024-04-24 11:41] LABS: Platelet Count Result 9 k/mm3 (150-375); White Blood Count 0.8 K/mm3 (4.5-10.0)
[2024-04-24 11:42] LABS: Anisocytosis 1+; Platelet Estimate Decreased (Adequate); Schistocytes None Seen
[2024-04-24 11:54] LABS: Reflex Lactic Acid Yes or No Add Lactic
[2024-04-24 11:56] LABS: MRSA (PCR) DETECTED (NOT DETECTE)
--- NOTE | 2024-04-24 12:25 | PCNFU ---
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 Goal:Meet estimated needs 100% via PEG tube and tube feeding Wt maintenance or gain Pt not meeting goal, tube feeds have been held, PPN was initiated Pt current nutrition is Soft and bite sized, PPN. Nutrition recommendation: Resume PPN orders for Clinimix E 4.25/5 @ 80ml/hr with riders for K+, mg, and phos Last recorded weight is 56 kg. Bowel Motility: +BM 04/24 Labs Reviewed: K:2.6, M.5, Phos:2.2 Meds Noted: zofran, protonix, MVI Skin: WNL Additional Notes: Pt tube feeds held due to GI issues, N/V. PPN was initiated but held last night. Recommend to resume PPN at 80ml/hr which provides 1153kcals, 82g protein over 24hrs, 75% estimated energy needs, 114% protein needs. Recommend to add riders for electrolytes due to critical low labs. Consult GI regarding tube as nursing states pt PEG is leaking gastric contents. All details discussed in rounds. Monitor nutrition status, tolerance, wt, labs. Follow up every sunday and sunday.
--- NOTE | 2024-04-24 12:49 | ECG_ITS ---
Test Date: 2024-04-24 15:44:42 Measurements Intervals [place] Rate: 119 P: 13 CT: 120 QRS: 79 QRSD: 88 T: 61 QT: 302 QTc: 425 Interpretive Statements SINUS TACHYCARDIA LOW QRS VOLTAGE IN PRECORDIAL LEADS [QRS DEFLECTION < 1.0 mV IN CHEST LEADS] NONSPECIFIC T-WAVE ABNORMALITY ABNORMAL RHYTHM ECG Compared to ECG 04/24/2024 07:00:23 Low QRS voltage now present Short CT interval no longer present T-wave abnormality still present Electronically Signed On 04-24-2024 15:46:15 CDT by Gregory Manuel M.D.
[2024-04-24 13:06] LABS: Lactic Acid 4.2 mmol/L (0.7-2.0)
--- NOTE | 2024-04-24 13:23 | PC.NURSE ---
Patient evaluated by ICU MD. ICU MD ordered to take patient to the unit. Patient was transported via bed accompanied by nurse and PCT. All belongings brought to unit with patient. Report given to receiving nurse.
[2024-04-24] MEDS: SODIUM CHLORIDE 0.9% IV 1,000 ML 999 ML IV CONT ×2 (13:40→14:45)
--- NOTE | 2024-04-24 13:43 | P.PNIM_ITS ---
Progress Note: A&P Assessment and Plan (1) C. difficile diarrhea: Code(s): A04.72 - Enterocolitis due to Clostridium difficile, not specified as recurrent Status: Acute Assessment and Plan: Patient presented to with diarrhea wand gen weakness CT AP today no acute changes C diff positive Patient septic with escalating lactic acid Stool culture and blood cultue negative Continue Fidaxomicin (2) Hypokalemia: Code(s): E87.6 - Hypokalemia Status: Acute Assessment and Plan: * Continues to have profound electrolyte abnormalities. Hypokalemia, Hypomagnesemia, hypophosphatemia, hyponatremia. * Receiving IV replacements potassium phosphorus 40 mmol, PO K+ 20 meq, magnesium 3 grams, and started on NS gtt, repeating BMP this evening * BMP daily * cardiac monitoring (3) Anemia: Qualifiers: Anemia type: unspecified type Qualified Code(s): D64.9 - Anemia, unspecified Code(s): D64.9 - Anemia, unspecified Status: Acute Assessment and Plan: Blake on hold Hb 10.2 this morning s/p 2 units of pRBC this admission occult blood stool positive GI consulted Isat 57 (4) Weight loss: Code(s): R63.4 - Abnormal weight loss Status: Acute Assessment and Plan: * secondary to poor oral intake from the chemo and radiation * take tube in place for supplemental nutrition * dietitian consulted * will add folic acid and multivitamin * Currently on PPN * Planning on trickle tube feeds in the am with scheduled reglan (5) Generalized weakness: Code(s): R53.1 - Weakness Status: Acute Assessment and Plan: * secondary to post chemo and radiation, poor appetite, dehydration, in C diff infection * IV fluids * ABX for C diff * PT/OT (6) Pancytopenia: Code(s): D61.818 - Other pancytopenia Status: Acute Assessment and Plan: * 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
--- NOTE | 2024-04-24 13:43 | PM.IMPN ---
Progress Note: A&P Assessment and Plan (1) C. difficile diarrhea: Code(s): A04.72 - Enterocolitis due to Clostridium difficile, not specified as recurrent Status: Acute Assessment and Plan: Patient presented to with diarrhea wand gen weakness CT AP today no acute changes C diff positive Patient septic with escalating lactic acid Stool culture and blood cultue negative Continue Fidaxomicin (2) Hypokalemia: Code(s): E87.6 - Hypokalemia Status: Acute Assessment and Plan: Continues to have profound electrolyte abnormalities. Hypokalemia, Hypomagnesemia, hypophosphatemia, hyponatremia. Receiving IV replacements potassium phosphorus 40 mmol, PO K+ 20 meq, magnesium 3 grams, and started on NS gtt, repeating BMP this evening BMP daily cardiac monitoring (3) Anemia: Qualifiers: Anemia type: unspecified type Qualified Code(s): D64.9 - Anemia, unspecified Code(s): D64.9 - Anemia, unspecified Status: Acute Assessment and Plan: Eliquis on hold Hb 10.2 this morning s/p 2 units of pRBC this admission occult blood stool positive GI consulted Isat 57 (4) Weight loss: Code(s): R63.4 - Abnormal weight loss Status: Acute Assessment and Plan: secondary to poor oral intake from the chemo and radiation take tube in place for supplemental nutrition dietitian consulted will add folic acid and multivitamin Currently on PPN Planning on trickle tube feeds in the am with scheduled reglan (5) Generalized weakness: Code(s): R53.1 - Weakness Status: Acute Assessment and Plan: secondary to post chemo and radiation, poor appetite, dehydration, in C diff infection IV fluids ABX for C diff PT/OT (6) Pancytopenia: Code(s): D61.818 - Other pancytopenia Status: Acute Assessment and Plan: 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 Assessment and Plan: CT showed LT iliac thrombus Eliquis and ASA held due to anemia and thrombocytopenia monitor (9) Septic shock: Code(s): A41.9 - Sepsis, unspecified organism; R65.21 - Severe sepsis with septic shock Status: Acute Assessment and Plan: From Pneumonia vs DIC Lactic acid 4.1, still tachycardic and tachypneic, and leukopenia CXR showed possible pneumonia MRSA positive Continue Vancomycin, Cefepime Continue IVF and PPN Sky Cap consulted and monitor in the ICU Monitor in ICU (10) Pneumonia: Code(s): J18.9 - Pneumonia, unspecified organism Status: Acute Assessment and Plan: CXR showed possible pneumonia continue above care Plan DVT prophylaxis on SCDs, no AC due to thrombocytopenia Subjective Date/time seen: 04/24/24 13:43 Interval history: Patient acutely ill looking with tachycardia, plts 9.0, HR did not respond to [address] AP did not show any acute changes, KUP showed right lower lobe changes suggestive of Pneumonia. Patient septic with fever, tachychardia and tachypnea with lactic aci
[2024-04-24] MEDS: NOREPINEPHRINE 8 MG/D5W 250 ML 8 MG/250 ML BAG 18.75 MG IV CONT (13:48)
[2024-04-24] MEDS: FENTANYL 2,500MCG/NS250ML(*CRX 2,500 MCG/250 ML BAG IV CONT (13:50)
[2024-04-24] MEDS: MIDAZOLAM 100MG/NS 100ML(*CRX) 100 MG/100 ML BAG IV CONT (13:50)
--- NOTE | 2024-04-24 14:34 | WPDCNINT ---
Assessment and Plan Assessment and plan (1) Septic shock: Code(s): A41.9 - Sepsis, unspecified organism; R65.21 - Severe sepsis with septic shock Status: Acute Assessment and Plan: Septic shock likely related to her neutropenic fevers -likely source could be C diff colitis -04/24: repeat blood culture, urine culture and sputum culture -will give 2 L IV fluid bolus -patient started on Levophed will maintain MAP > 65 mmHg or SBP > 100 mmHg -patient has developed acute kidney injury, monitor urine output -started on meropenem and vancomycin for neutropenic fevers (04/24/2024) -will add vasopressin if required 04/24/2024 CT scan of the abdomen and pelvis Minimal right pleural effusion and probable right basilar atelectatic change. Correlate for pneumonia. Probable emphysema the lung bases. No acute abnormality of the abdomen or pelvis pelvis otherwise (2) Acute respiratory failure: Code(s): J96.00 - Acute respiratory failure, unspecified whether with hypoxia or hypercapnia Status: Acute Assessment and Plan: Acute hypoxic respiratory failure likely related to metabolic acidosis, neutropenia and fevers infection -04/24: patient was intubated for impending respiratory failure -currently on CMV mode of ventilation, peep of 5, 100% FiO2 -chest x-ray reviewed -post intubation ABGs have been ordered -continue bronchodilators -continue antibiotics as above Sedated with fentanyl and Versed infusion, maintain RASS of 0 to -2, daily SBT and SAT (3) Acute kidney injury: Code(s): N17.9 - Acute kidney failure, unspecified Status: Acute Assessment and Plan: Creatinine on admission was 0.7 (04/19) -creatinine has increased to 1.30 this morning -patient seems to be hypovolemic with dry oral mucosa, decreased skin turgor -2 L IV fluid bolus will be given -patient started on vasopressors -monitor urine output -04/24: Obtain renal ultrasound -urine lytes, urine eosinophils, CK level -monitor urine output, renal function electrolytes (4) Pancytopenia: Code(s): D61.818 - Other pancytopenia Status: Acute Assessment and Plan: Pancytopenia likely related to chemotherapy that patient received 11 days ago -patient of filgrastim per oncology -thrombocytopenia with platelet counts of 9, will give 2 units of platelets and recheck the CBC, since patient has rectal bleeding -anemia, continue to monitor H&H will transfuse PRBC if hemoglobin less than 7 g/dL (5) Neutropenic fever: Code(s): D70.9 - Neutropenia, unspecified; R50.81 - Fever presenting with conditions classified elsewhere Status: Acute Assessment and Plan: Neutropenic fevers causing septic shock, treatment as above (6) Electrolyte imbalance: Code(s): E87.8 - Other disorders of electrolyte and fluid balance, not elsewhere classified Status: Acute Assessment and Plan: Hypokalemia and hypomagnesemia he Karlie being aggressively replaced -will recheck (7) Primary squamous cell carcinoma of head and neck: Code(s): C76.0 - Malignant neoplasm of head, face and neck Status: Acute Assessment and Plan: 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 difficile diarrhea: Code(s): A04.72 - Enterocolitis due to Clostridium difficile, not specified as recurrent Status: Acute Assessment and Plan: Patient developed diarrhea, C diff positive on fidaxomicin -will continue Plan DVT prophylaxis: SCDs, no chemoprophylaxis secondary to thrombocytopenia, anemia, rectal bleeding Stress ulcer prophylaxis: Protonix IV q.12 hours Nutrition: Patient was on TPN, will continue to hold for now Code Status: Was to modified code, okay for intubation no CPR Critical Care Time Spent: 61 minutes Discussed with patient's daughter and MARY ELLEN Hurley, updated her with patient's
[2024-04-24] MEDS: SODIUM CHLORIDE 0.9% IV 250 ML 30 ML IV CONT ×2 (14:56→15:04)
--- NOTE | 2024-04-24 15:03 | P.PCNBED_ITS ---
Procedures Central Line Placement Left Femoral: Central Line Date: 04/24/24 Central Line Time: 14:30 Discussed w/ the patient/family/POA,the placement of a central venous catheter, including its clinical necessity/indication & associated potential risks, benifits and alternatives.: Yes The patient/family/POA understand(s) and acknowledge(s) the need to proceed with central venous catheter insertion as an important element of the patient's clinical management.: Yes Consent: I have discussed with the patient and/or surrogate, the non-emergent placement of a central venous catheter, including its clinical necessity/indication and associated potential risks and complications. The patient and/or surrogate understand(s) and acknowledge(s) the need to proceed with central venous catheter insertion as an important element of the patient's clinical management. Time Out Performed: Yes Patient Position: supine Patient placed on monitor/pulse ox: Yes Provider Prep: mask, sterile gown, sterile gloves, Max. sterile barrier precautions, cap and hand hygiene with conventional soap/water or alcohol based hand rub Central line prep: 2% Chlorhexidine scrub Local anesthesia used: lidocaine 1% Amount of anesthesia used (ml): 2 Sterile US Technique with sterile gel/sterile probe covers: Yes Central line lumen inserted: triple Monegasque: 7 Length (cm): 20 Depth of Insertion (cm): 20 Post Procedure: sutured in place, good blood return, all ports aspirated, flushed, capped, transparent dressing, hemostatic product, antimicrobial product, securement product and aseptic technique maintained throughout procedure Post procedure x-ray: other (Not indicated) Patient tolerated procedure: well Complications: none
[2024-04-24] MEDS: ACETAMINOPHEN 650 MG SUPPOSITORY RECTAL (15:04)
[2024-04-24] MEDS: SODIUM BICARBONATE 8.4% 50 MEQ/50 ML SYRINGE 100 MEQ IV PUSH (15:05)
[2024-04-24 15:07] LABS: Alveolar/Arterial O2 Gradient 340.7 mmHg; Base Excess ABG -10.9 mEq/l (+/-2.0); Fractional Inspired Oxygen 100 %; HCO3 ABG 16.7 mEq/l (22.0-26.0); Oxygen Content ABG 13.5 %vol (16.0-22.0); Oxygen Saturation ABG 99.6 % (95.0-100.0); Oxyhemoglobin 98.5 % THb (90.0-100.0); PCO2 ABG 44.9 mmHg (35.0-45.0); PO2 ABG 327.4 mmHg (80.0-100.0); PO2 FiO2 Ratio Arterial Blood 3.27 %; Total Hemoglobin 9.1 g/dL (12.0-18.0)
[2024-04-24] MEDS: MEROPENEM 1 GM/NS 100 ML 1 GM/100 ML BAG IVPB (15:12)
[2024-04-24 15:19] LABS: Device VENTILATOR; Site Drawn LEFT RADIAL; pH ABG 7.189 (7.350-7.450)
[2024-04-24 15:20] LABS: Arterial Blood Gas PEEP 5 cmH2O; Arterial Blood Gas Tidal Volume 350 ml; Arterial Blood Gas Vent Mode CMV; Arterial Blood Gas Ventilator rate 24 /MIN
[2024-04-24 16:02] LABS: Hematocrit 21.3 % (37.0-47.0); Hemoglobin 7.4 g/dL (12.0-15.0); Immature Platelet Fraction Pct 3.1 % (0.9-11.2); Lymphocytes Absolute Auto 0.02 K/mm3 (0.9-3.2); Lymphocytes Percent Auto 5.4 % (18.3-44.2); Mean Corpuscular HGB Conc 34.7 g/dl (32-36); Mean Corpuscular Hemoglobin 31.8 pg (26-34); Mean Corpuscular Volume 91.4 fl (80-100); Mean Platelet Volume 10.3 fl (7.4-10.4); Monocytes Percent Auto 5.4 % (2.6-8.5); Neutrophils Absolute Auto 0.3 K/mm3 (1.3-6.7); Neutrophils Percent Auto 89.2 % (45.5-73.1); Platelet Count Result 57 k/mm3 (150-375); Red Blood Count 2.33 M/mm3 (4.2-5.4); Red Cell Distribution Width 16.4 % (11.5-14.5)
[2024-04-24 16:14] LABS: Lactic Acid Reflex 1.9 mmol/L (0.7-2.0)
[2024-04-24 16:18] LABS: INR 1.4
[2024-04-24 16:19] LABS: Fibrinogen 288 mg/dl (215-510); Partial Thromboplastin Time 38.7 Seconds (22.3-36.8)
[2024-04-24 16:22] LABS: Platelet Estimate Decreased (Adequate); White Blood Count 0.4 K/mm3 (4.5-10.0)
[2024-04-24 16:23] LABS: Schistocytes None Seen
[2024-04-24 16:23] LABS: Alanine Aminotransferase 25 U/L (6-35); Albumin Level 2.5 g/dL (3.5-5.1); Alkaline Phosphatase 41 U/L (38-126); Anion Gap 7 mmol/L (4-12); Aspartate Amino Transferase 82 U/L (14-36); Bilirubin,Total 1.1 mg/dL (0.2-1.3); Blood Urea Nitrogen 36 mg/dL (7-17); Calcium 5.4 mg/dL (8.4-10.2); Carbon Dioxide 23 mmol/L (22-30); Chloride 106 mmol/L (98-107); Creatine Kinase 211 U/L (30-135); Estimated CRCL calculation 21 ml/min; Estimated Glomerular Filt Rate 26; Glucose 113 mg/dL (65-110); Lactate Dehydrogenase 576 U/L (120-246); Magnesium 1.3 mg/dL (1.6-2.3); Potassium 2.2 mmol/L (3.4-5.0); Sodium 136 mmol/L (137-145)
[2024-04-24] MEDS: SODIUM BICARBONATE 8.4% 150 MEQ in DEXTROSE 5% 1,000 ML 950 ML 75 MEQ IV CONT (16:23)
[2024-04-24 16:27] LABS: Eosinophil Urine None Seen % (None Seen); Urine Eos QC 2nd Tech Confirmed
[2024-04-24 16:36] LABS: Add Urine Microscopic? YES; Appearance Urine Turbid (Clear); Bacteria Urine 4+ /hpf; Bilirubin Urine Negative (Negative); Blood Urine 2+ (Negative); Color Urine Yellow (Yellow); Glucose Urine UA Negative (Negative); Granular Casts Urine Present /lpf; Ketones Urine Negative (Negative); Leukocyte Esterase Ur Negative LEU/UL (Negative); Need Manual Microscopic Reviewed; Nitrate Urine Positive (Negative); Protein Urine 2+ mg/dL (Negative); Specific Grav Ur 1.013 (1.001-1.035); Squamous Epithelial Cell Urine Few /hpf (Few); Urobilinogen Urine 0.2 mg/dL (<2.0); WBC Urine 21-50 /hpf (0-3)
[2024-04-24 16:43] LABS: CRP 33.1 mg/dL (<1.0)
[2024-04-24 16:44] LABS: D Dimer > 20.00 ug/mL (<0.48)
[2024-04-24] MEDS: POTASSIUM CHLORIDE 20 MEQ PACKET (FOR LIQUID) 80 MEQ FEED TUBE (16:50)
[2024-04-24] MEDS: MINERAL OIL/WHITE PETROLATUM OINTMENT 1 APPLIC EACH EYE ×2 (16:50→22:50)
[2024-04-24] MEDS: KCL 40 MEQ/WATER 100 ML 100 ML 25 ML IVPB ×2 (17:03→23:40)
[2024-04-24] MEDS: MAGNESIUM SULF 2 GM/WATER 50ML 2 GM/50 ML BAG IVPB (17:03)
[2024-04-24 17:06] LABS: Creatinine Urine 49.1 mg/dL
[2024-04-24 17:07] LABS: Potassium Urine Random 61.9 meq/L; Sodium Urine Random 63 meq/L
[2024-04-24 17:21] LABS: Procalcitonin 83.9 ng/mL
[2024-04-24 17:29] LABS: Alveolar/Arterial O2 Gradient 286.2 mmHg; Base Excess ABG -4.2 mEq/l (+/-2.0); Fractional Inspired Oxygen 60 %; HCO3 ABG 22.4 mEq/l (22.0-26.0); Oxygen Content ABG 11.4 %vol (16.0-22.0); Oxygen Saturation ABG 95.6 % (95.0-100.0); Oxyhemoglobin 94.3 % THb (90.0-100.0); PCO2 ABG 48.6 mmHg (35.0-45.0); PO2 ABG 88.1 mmHg (80.0-100.0); PO2 FiO2 Ratio Arterial Blood 1.47 %; Total Hemoglobin 8.5 g/dL (12.0-18.0)
[2024-04-24 17:30] LABS: Device VENTILATOR; Modified Allen's Test Pass; Site Drawn RIGHT RADIAL; pH ABG 7.282 (7.350-7.450)
[2024-04-24] MEDS: CALCIUM GLUC 2,000 MG/NS 100ML 2,000 MG/100 ML BAG 100 MG IVPB (17:30)
[2024-04-24 17:31] LABS: Arterial Blood Gas PEEP 5 cmH2O; Arterial Blood Gas Vent Mode CMV; Arterial Blood Gas Ventilator rate 26 /MIN
[2024-04-24 17:32] LABS: Arterial Blood Gas Tidal Volume 400 ml
[2024-04-24] MEDS: ACIDOPHILUS/BULGARICUS CHEWABLE TABLET 1 TABLET PO ×2 (18:09→22:50)
[2024-04-24] MEDS: ACETAMINOPHEN ELIXIR 325 MG/10.15 ML UDC 650 MG FEED TUBE (18:09)
[2024-04-24] MEDS: CALCIUM GLUC 1,000 MG/NS 50 ML 1,000 MG/50 ML BAG 100 MG IVPB (18:27)
--- NOTE | 2024-04-24 20:41 | PC.NURSE ---
Off floor to head CT
--- NOTE | 2024-04-24 21:15 | PC.NURSE ---
Return to floor from CT
[2024-04-24 22:45] LABS: Alanine Aminotransferase 28 U/L (6-35); Albumin Level 2.6 g/dL (3.5-5.1); Alkaline Phosphatase 49 U/L (38-126); Anion Gap 10 mmol/L (4-12); Aspartate Amino Transferase 102 U/L (14-36); Blood Urea Nitrogen 40 mg/dL (7-17); Calcium 6.9 mg/dL (8.4-10.2); Carbon Dioxide 23 mmol/L (22-30); Chloride 104 mmol/L (98-107); Estimated CRCL calculation 18 ml/min; Estimated Glomerular Filt Rate 22; Glucose 160 mg/dL (65-110); Potassium 3.2 mmol/L (3.4-5.0); Sodium 137 mmol/L (137-145)
[2024-04-24] MEDS: NOREPINEPHRINE 8 MG/D5W 250 ML 8 MG/250 ML BAG 37.5 MG IV CONT (23:27)
--- NOTE | 2024-04-24 23:56 | PC.NURSE ---
Call placed to provider about change in patient condition & tachycardia. Provider, Dr. Brooks, at bedside at approximately 0615. Verbal orders received & documented.
[2024-04-25] VITALS (41 sets, daily range): BP systolic 66–111; BP diastolic 52–92; PULSE 119–135; RESP 24–27; TEMP 38.1–39.8; O2SAT 90–100; BMI 28.9
--- NOTE | 2024-04-25 | ECHO_ITS ---
Patient Info Name: Hunter Garcia Age: 68 years : 1955 Gender: Female Ht: 62 in Wt: 158 lbs BSA: 1.79 m2 HR: 127 bpm BP: 85 / 55 mmHg Heart Rhythm: Tachycardia Technical Quality: Fair Exam Date: 04/25/2024 11:30 AM Exam Location: Echo Lab Patient Status: Inpatient Admit Date: 04/22/2024 Staff Ordering Physician: Nasima Gallagher MD Metal Fabricator Welder: Sangita Clemens RDCS Attending Provider: Moni Crouch APRN Referring Physician: Aileen BAÑUELOS; Exam Type: CA echo dop color flow w con Study Info Indications - Septic shock, evaluate cardiac function Complete two-dimensional, color flow and Doppler transthoracic echocardiogram is performed with contrast to opacify the left ventricle and to improve the deliniation of the left ventricle endocardial borders. Contrast/Agitated Saline Contrast/Ag. Saline: Definity Amount: 2.00 ml Administered By: Sangiat Clemens RDCS Existing IV Access: Yes IV Access Condition: patent with no signs of infiltration Summary 1. Definity contrast administered improved wall motion interpretation. 2. Left ventricular chamber dimension is mildly enlarged. 3. Left ventricular systolic function is moderately gobally reduced, estimated at 40-45%. 4. The left ventricular diastolic function is abnormal. 5. E/e' 12 is mildly elevated. 6. There is mild aortic valve sclerosis. 7. There is mild mitral valve regurgitation. 8. No pulmonary hypertension, estimated pulmonary arterial systolic pressure is 24 mmHg. Left Ventricle E/e' 12 is mildly elevated. Definity contrast administered improved wall motion interpretation. Left ventricular chamber dimension is mildly enlarged. Left ventricular systolic function is moderately gobally reduced, estimated at 40-45%. The left ventricular diastolic function is abnormal. Right Ventricle Right ventricular chamber dimension is normal. Right ventricular systolic function is normal. Left Atria Left atrial chamber dimension is normal. Right Atria Right atrial chamber dimension is normal. Aortic Valve The aortic valve is trileaflet. There is mild aortic valve sclerosis. There is no aortic valve stenosis. There is no aortic valve regurgitation. No aortic valve vegetation visualized. Pulmonic Valve There is no pulmonic regurgitation. No pulmonic valve vegetation visualized. Mitral Valve There is no mitral valve stenosis. There is mild mitral valve regurgitation. No mitral valve vegetation visualized. Tricuspid Valve There is no tricuspid valve regurgitation. No pulmonary hypertension, estimated pulmonary arterial systolic pressure is 24 mmHg. No tricuspid valve vegetation visualized. Pericardium/Pleural There is no pericardial effusion. Inferior Vena Cava Inferior vena cava is not well visualized. Aorta The aortic root size at the sinus of Valsalva is normal. Left Ventricular Outflow Tract Name Value Normal LVOT 2D LVOT Diameter 2.00 cm LVOT Doppler LVOT Peak Gradient 3 mmHg LVOT Mean Gradient 1 mmHg LVOT VTI 8.79 cm LVOT VTI/AV VTI Ratio
[2024-04-25] MEDS: IPRATROPIUM 0.5 MG/ALBUTEROL SULFATE 2.5 MG AMPUL.NEB 3 ML INHALATION ×2 (02:46→08:24)
[2024-04-25] MEDS: MEROPENEM 1 GM/NS 100 ML 1 GM/100 ML BAG IVPB (04:20)
[2024-04-25] MEDS: NOREPINEPHRINE 8 MG/D5W 250 ML 8 MG/250 ML BAG 45 MG IV CONT (05:30)
[2024-04-25] MEDS: FIDAXOMICIN 200 MG TABLET PO (05:32)
[2024-04-25 05:50] LABS: Eosinophils Percent Auto 3.2 % (0-4.4); Hematocrit 28.9 % (37.0-47.0); Hemoglobin 9.9 g/dL (12.0-15.0); Immature Platelet Fraction Pct 5.9 % (0.9-11.2); Lymphocytes Absolute Auto 0.02 K/mm3 (0.9-3.2); Lymphocytes Percent Auto 6.5 % (18.3-44.2); Mean Corpuscular HGB Conc 34.3 g/dl (32-36); Mean Corpuscular Hemoglobin 30.5 pg (26-34); Mean Corpuscular Volume 88.9 fl (80-100); Mean Platelet Volume 12.9 fl (7.4-10.4); Monocytes Percent Auto 9.7 % (2.6-8.5); Neutrophils Absolute Auto 0.3 K/mm3 (1.3-6.7); Neutrophils Percent Auto 80.6 % (45.5-73.1); Red Blood Count 3.25 M/mm3 (4.2-5.4); Red Cell Distribution Width 18.7 % (11.5-14.5)
[2024-04-25 05:58] LABS: Lactic Acid Reflex 4.8 mmol/L (0.7-2.0)
[2024-04-25 06:00] LABS: INR 1.3
[2024-04-25 06:01] LABS: Alanine Aminotransferase 25 U/L (6-35); Albumin Level 2.4 g/dL (3.5-5.1); Alkaline Phosphatase 48 U/L (38-126); Anion Gap 12 mmol/L (4-12); Aspartate Amino Transferase 87 U/L (14-36); Bilirubin,Total 0.9 mg/dL (0.2-1.3); Blood Urea Nitrogen 43 mg/dL (7-17); Calcium 6.6 mg/dL (8.4-10.2); Carbon Dioxide 21 mmol/L (22-30); Chloride 104 mmol/L (98-107); Estimated CRCL calculation 15 ml/min; Estimated Glomerular Filt Rate 18; Glucose 120 mg/dL (65-110); Magnesium 2.2 mg/dL (1.6-2.3); Phosphorus 4.1 mg/dL (2.5-4.5); Potassium 3.8 mmol/L (3.4-5.0); Sodium 137 mmol/L (137-145)
[2024-04-25] MEDS: CENTRAL LINE FLUSH 10 ML IV PUSH ×2 (06:06)
[2024-04-25 06:21] LABS: White Blood Count 0.3 K/mm3 (4.5-10.0)
[2024-04-25 06:22] LABS: Hypochromasia 1+; Platelet Count Result 13 k/mm3 (150-375); Platelet Estimate Decreased (Adequate)
[2024-04-25 06:23] LABS: Anisocytosis 2+; Burr Cells 2+; Schistocytes None Seen
[2024-04-25 06:25] LABS: Alveolar/Arterial O2 Gradient 316.8 mmHg; Base Excess ABG -6.6 mEq/l (+/-2.0); Carboxyhemoglobin 0.5 % THb (0-2.0); Fractional Inspired Oxygen 60 %; HCO3 ABG 18.7 mEq/l (22.0-26.0); Methemoglobin ABG 0.3 %THb (0-1.5); Oxygen Content ABG 14.7 %vol (16.0-22.0); Oxygen Saturation ABG 93.1 % (95.0-100.0); Oxyhemoglobin 92.9 % THb (90.0-100.0); PCO2 ABG 36.8 mmHg (35.0-45.0); PO2 ABG 70.5 mmHg (80.0-100.0); PO2 FiO2 Ratio Arterial Blood 1.17 %; Reduced Hemoglobin 6.3 %THb (0-5.0); Total Hemoglobin 11.2 g/dL (12.0-18.0); pH ABG 7.325 (7.350-7.450)
[2024-04-25 06:29] LABS: Device VENTILATOR; Site Drawn RIGHT BRACHIAL
[2024-04-25 06:31] LABS: Arterial Blood Gas PEEP 5 cmH2O; Arterial Blood Gas Tidal Volume 400 ml; Arterial Blood Gas Vent Mode CMV; Arterial Blood Gas Ventilator rate 26 /MIN
[2024-04-25] MEDS: SODIUM BICARBONATE 8.4% 150 MEQ in DEXTROSE 5% 1,000 ML 950 ML 75 MEQ IV CONT (07:24)
[2024-04-25] MEDS: ALBUMIN HUMAN 25% 25 GM/100 ML 100 ML IVPB (07:30)
[2024-04-25] MEDS: VASOPRESSIN INJ 100 UNITS in DEXTROSE 5% 95 ML IV CONT (07:37)
[2024-04-25] MEDS: PHENYLEPHRINE HCL INJ 50 MG in DEXTROSE 5% IN WATER 250 ML/245 ML BAG 12 ML IV CONT (07:39)
--- NOTE | 2024-04-25 08:12 | WPDINTPN ---
Progress Note: A&P Assessment and Plan (1) Septic shock: Code(s): A41.9 - Sepsis, unspecified organism; R65.21 - Severe sepsis with septic shock Status: Acute Assessment and Plan: Septic shock likely related to her neutropenic fevers -likely source could be C diff colitis -04/24: Preliminary blood cultures growing Gram-positive cocci in clusters 2/2 bottles -04/24, urine culture pending -04/24: sputum culture pending -adequately fluid-resuscitated on 04/24/2024 -patient started on Levophed will maintain MAP > 65 mmHg or SBP > 100 mmHg, remains tachycardic, will switch to vasopressin and Jace-Synephrine and wean off Levophed due to tachycardia -urine output has been low, renal function is worsening -continue meropenem and vancomycin for gram positive cocci in clusters bacteremia, neutropenic fevers (04/24/2024) 04/24/2024 CT scan of the abdomen and pelvis Minimal right pleural effusion and probable right basilar atelectatic change. Correlate for pneumonia. Probable emphysema the lung bases. No acute abnormality of the abdomen or pelvis pelvis otherwise (2) Acute respiratory failure: Code(s): J96.00 - Acute respiratory failure, unspecified whether with hypoxia or hypercapnia Status: Acute Assessment and Plan: Acute hypoxic respiratory failure likely related to metabolic acidosis, neutropenia and fevers infection -04/24: patient was intubated for impending respiratory failure -currently on CMV mode of ventilation, peep of 5, 60% FiO2 -chest x-ray and ABGs reviewed -continue bronchodilators -continue antibiotics as above Sedated with fentanyl and Versed infusion, maintain RASS of 0 to -2, daily SBT and SAT (3) Acute kidney injury: Code(s): N17.9 - Acute kidney failure, unspecified Status: Acute Assessment and Plan: Creatinine on admission was 0.7 (04/19) -04/24: creatinine has increased to 1.30 this morning -patient seems to be hypovolemic with dry oral mucosa, decreased skin turgor, patient received adequate amount of IV fluids in the ICU -currently on vasopressors, maintain MAP > 65-70 mmHg for adequate end organ perfusion -monitor urine output -04/24: Renal ultrasound showed normal kidneys without hydronephrosis -urine lytes did not show prerenal picture - urine eosinophils were negative, CK levels mildly elevated -monitor urine output, renal function electrolytes -will consult nephrology (4) Pancytopenia: Code(s): D61.818 - Other pancytopenia Status: Acute Assessment and Plan: Pancytopenia likely related to chemotherapy that patient received 11 days ago Leukopenia -patient of filgrastim per oncology Thrombocytopenia -04/24: thrombocytopenia with platelet counts of 9, transferred 2 units of platelets. -04/25: Hemoglobin is better this morning, thrombocytopenia is 13 this morning, will transfuse 2 units of platelets Anemia, continue to monitor H&H will transfuse PRBC if hemoglobin less than 7 g/dL, 04/24: Patient also transfuse 1 unit of PRBCs 04/25: Hemoglobin stable this morning (5) Neutropenic fever: Code(s): D70.9 - Neutropenia, unspecified; R50.81 - Fever presenting with conditions classified elsewhere Status: Acute Assessment and Plan: Neutropenic fevers causing septic shock, treatment as above (6) Electrolyte imbalance: Code(s): E87.8 - Other disorders of electrolyte and fluid balance, not elsewhere classified Status: Acute Assessment and Plan: Hypokalemia and hypomagnesemia have been aggressively replaced and corrected -replace calcium (7) Primary squamous cell carcinoma of head and neck: Code(s): C76.0 - Malignant neoplasm of head, face and neck Status: Acute Assessment and Plan: 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 difficile diarrhea: Co
--- NOTE | 2024-04-25 08:12 | WPDPROCEDUR ---
Procedures Intubation Intubation Date: 04/24/24 Intubation Time: 14:05 A pre-procedural Time-Out was completed immediately before starting the procedure and confirmed: Patient Identification, Site, Procedure, Patient Position and the Availability of Requisite Equipment: Yes Sedative: etomidate Paralytic: rocuronium Laryngoscope: fiber optic video scope Assist device used: fiber optic device ET tube size: 7 Tube secured depth (cm): 24 Tube secured location: lips Tube placement confirmation: visualized tube passing through cords, equal breath sounds bilaterally, no breath sounds over epigastrium and confirmation by capnometry Patient tolerated procedure: well Intubation complications: none
--- NOTE | 2024-04-25 08:39 | ECG_ITS ---
Test Date: 2024-04-25 08:51:28 Measurements Intervals [place] Rate: 126 P: -2 NM: 107 QRS: 79 QRSD: 84 T: 43 QT: 260 QTc: 377 Interpretive Statements SINUS TACHYCARDIA WITH SHORT NM INTERVAL NONSPECIFIC ST & T-WAVE ABNORMALITY ABNORMAL RHYTHM ECG WARNING: DATA QUALITY MAY AFFECT INTERPRETATION Compared to ECG 04/24/2024 15:44:42 Short NM interval now present T-wave abnormality still present Electronically Signed On 04-25-2024 10:42:15 CDT by Gregory Manuel M.D.
[2024-04-25 08:44] LABS: Reflex Lactic Acid Yes or No Add Lactic
[2024-04-25 09:09] LABS: Vancomycin Random 15.2 ug/mL (10-20)
[2024-04-25] MEDS: FOLIC ACID 1 MG/0.2 ML INJ IV PUSH (09:26)
[2024-04-25] MEDS: ACETAMINOPHEN ELIXIR 325 MG/10.15 ML UDC 650 MG FEED TUBE (09:26)
[2024-04-25] MEDS: PANTOPRAZOLE SODIUM IV 40 MG VIAL IV PUSH (09:26)
[2024-04-25] MEDS: ACIDOPHILUS/BULGARICUS CHEWABLE TABLET 1 TABLET PO (09:26)
[2024-04-25] MEDS: MINERAL OIL/WHITE PETROLATUM OINTMENT 1 APPLIC EACH EYE (09:26)
--- NOTE | 2024-04-25 09:45 | PM.CNNEP ---
Assessment and Plan Assessment and plan (1) Acute kidney injury: Code(s): N17.9 - Acute kidney failure, unspecified Status: Acute Assessment and Plan: Creatinine on admission was 0.7 (04/19) -04/24: creatinine has increased to 1.30 this morning -patient seems to be hypovolemic with dry oral mucosa, decreased skin turgor, patient received adequate amount of IV fluids in the ICU -currently on vasopressors, maintain MAP > 65-70 mmHg for adequate end organ perfusion -monitor urine output -04/24: Renal ultrasound showed normal kidneys without hydronephrosis -urine lytes did not show prerenal picture - urine eosinophils were negative, CK levels mildly elevated -monitor urine output, renal function electrolytes (2) Septic shock: Code(s): A41.9 - Sepsis, unspecified organism; R65.21 - Severe sepsis with septic shock Status: Acute Assessment and Plan: Septic shock likely related to her neutropenic fevers -likely source could be C diff colitis -04/24: Preliminary blood cultures growing Gram-positive cocci in clusters 2/2 bottles -04/24, urine culture pending -04/24: sputum culture pending -adequately fluid-resuscitated on 04/24/2024 -patient started on Levophed will maintain MAP > 65 mmHg or SBP > 100 mmHg, remains tachycardic, will switch to vasopressin and Jace-Synephrine and wean off Levophed due to tachycardia -urine output has been low, renal function is worsening -continue meropenem and vancomycin for gram positive cocci in clusters bacteremia, neutropenic fevers (04/24/2024) 04/24/2024 CT scan of the abdomen and pelvis Minimal right pleural effusion and probable right basilar atelectatic change. Correlate for pneumonia. Probable emphysema the lung bases. No acute abnormality of the abdomen or pelvis pelvis otherwise (3) Acute respiratory failure: Code(s): J96.00 - Acute respiratory failure, unspecified whether with hypoxia or hypercapnia Status: Acute Assessment and Plan: Acute hypoxic respiratory failure likely related to metabolic acidosis, neutropenia and fevers infection -04/24: patient was intubated for impending respiratory failure -currently on CMV mode of ventilation, peep of 5, 60% FiO2 -chest x-ray and ABGs reviewed -continue bronchodilators -continue antibiotics as above Sedated with fentanyl and Versed infusion, maintain RASS of 0 to -2, daily SBT and SAT (4) Pancytopenia: Code(s): D61.818 - Other pancytopenia Status: Acute Assessment and Plan: Pancytopenia likely related to chemotherapy that patient received 11 days ago Leukopenia -patient of filgrastim per oncology Thrombocytopenia -04/24: thrombocytopenia with platelet counts of 9, transferred 2 units of platelets. -04/25: Hemoglobin is better this morning, thrombocytopenia is 13 this morning, will transfuse 2 units of platelets Anemia, continue to monitor H&H will transfuse PRBC if hemoglobin less than 7 g/dL, 04/24: Patient also transfuse 1 unit of PRBCs 04/25: Hemoglobin stable this morning (5) Neutropenic fever: Code(s): D70.9 - Neutropenia, unspecified; R50.81 - Fever presenting with conditions classified elsewhere Status: Acute Assessment and Plan: Neutropenic fevers causing septic shock, treatment as above (6) Electrolyte imbalance: Code(s): E87.8 - Other disorders of electrolyte and fluid balance, not elsewhere classified Status: Acute Assessment and Plan: Hypokalemia and hypomagnesemia he Karlie being aggressively replaced -will recheck (7) Primary squamous cell carcinoma of head and neck: Code(s): C76.0 - Malignant neoplasm of head, face and neck Status: Acute Assessment and Plan: 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 difficile diarrhea: Code(s): A04.72 - Enterocolitis due to Clostridium diff
[2024-04-25] MEDS: SODIUM CHLORIDE 0.9% IV 250 ML 30 ML (09:58)
[2024-04-25] MEDS: HYDROCORTISONE SODIUM SUCCINATE 100 MG/2 ML VIAL IV PUSH (09:59)
[2024-04-25] MEDS: VANCOMYCIN 1,000 MG/NS 250 ML 1,000 MG/250 ML BAG 250 MG IVPB (09:59)
[2024-04-25 10:39] LABS: Basophils Percent Auto 2.7 % (0.2-1.2); Hematocrit 26.7 % (37.0-47.0); Lymphocytes Absolute Auto 0.02 K/mm3 (0.9-3.2); Lymphocytes Percent Auto 5.4 % (18.3-44.2); Mean Corpuscular HGB Conc 33.7 g/dl (32-36); Mean Corpuscular Hemoglobin 30.6 pg (26-34); Mean Corpuscular Volume 90.8 fl (80-100); Mean Platelet Volume 12.4 fl (7.4-10.4); Monocytes Percent Auto 5.4 % (2.6-8.5); Neutrophils Absolute Auto 0.3 K/mm3 (1.3-6.7); Neutrophils Percent Auto 86.5 % (45.5-73.1); Red Blood Count 2.94 M/mm3 (4.2-5.4); Red Cell Distribution Width 19.1 % (11.5-14.5)
[2024-04-25] MEDS: NOREPINEPHRINE 8 MG/D5W 250 ML 8 MG/250 ML BAG 41.25 MG IV CONT (10:42)
[2024-04-25 10:58] LABS: Lactic Acid 4.5 mmol/L (0.7-2.0)
[2024-04-25 11:02] LABS: Platelet Count Result 10 k/mm3 (150-375); White Blood Count 0.4 K/mm3 (4.5-10.0)
[2024-04-25] MEDS: MICAFUNGIN SODIUM 100 MG in SODIUM CHLORIDE 0.9% IV 100 ML IVPB (11:12)
[2024-04-25] MEDS: PERFLUTREN LIPID MICROSPHERES 1.5 ML VIAL DILUTED TO 10 ML TOTAL VOLUME IV PUSH (11:50)
[2024-04-25] MEDS: PHENYLEPHRINE HCL INJ 50 MG in DEXTROSE 5% IN WATER 250 ML/245 ML BAG 54 ML IV CONT (12:21)
--- NOTE | 2024-04-25 12:32 | IVDEFINITY ---
Prior to administration of IV Definity the patient was educated on the risks and benefits of the imaging enhancing agent including potential adverse side effects. The patient verbalized understanding. Allergies were verified. No exclusion criteria were identified and at least one of the following inclusion criteria were met: 1) physician request, 2) patient technically difficult to image (per the [place] [employer] guidelines of two or more segments not discernable within the apical view), or 3) questionable left ventricular function. ?
--- NOTE | 2024-04-25 12:38 | PCNFU ---
Nutrition Follow-Up Complete: Moderate protein calorie malnutrition related to swallowing difficulty due to nasopharynx cancer and treatment as evidenced by need for a PEG tube for nutrition support, a -7% weight loss x 1 month, and NFPE findings of moderate subcutaneous fat loss (cheeks) and moderate muscle wasting (mandaeism, clavicle). goal: Meet estimated needs 100% via PEG tube and tube feeding Wt maintenance or gain Patient has limited progress towards goal. We will continue current goal. Pt current nutrition is NPO. Nutrition recommendation: Vital AF 1.2 advancing to 45 ml/hr per MD orders. Last recorded weight is 71.7 kg,unsure of weight accuracy. Last weight documented 56 kg. Nursing aware. Bowel Motility: +BM reported 04/24, bloody. Labs Reviewed: Glu 120, GFR 18, Alb 2.4,Hct 28.9,Hgb 9.9 Meds Noted:Vasopressin, Levophed, Versed, Protonix, Dificid Skin: WNL Additional Notes: Patient intubated on 04/24. Plans to hold nutrition for today. Recommend Vital AF 1.2 when tube feedings start per MD orders. Rate a this time at 45 ml/hr which will provide 70% of energy needs at 1188 kcal/74 gm protein/ 803 ml water. Will advance slowly to goal rate after 72 hours. Flush 30 ml q 4 hours. Monitor tube feeding, tolerance, wt, labs. Follow up every 3 days.
[2024-04-25] MEDS: MORPHINE SULFATE INJ (*CRX) 10 MG/ML AMP 5 MG IV PUSH (14:01)
[2024-04-25] MEDS: LORazepam INJ (*CRX) 2 MG/ML VIAL IV PUSH (14:02)
--- NOTE | 2024-04-25 14:55 | P.DN_ITS ---
Discharge Summary Date and Time Date of : 04/25/24 Time of : 14:30 Probable Cause of Probable Cause of : septic shock Acute hypoxemic respiratory failure Summary Hospital Course: Patient is a 68-year-old female who presented to the emergency department with complaints of nausea and vomiting with generalized weakness post chemotherapy and radiation. Patient has carcinoma of the nasopharnyx and just completed 30 days of chemotherapy and radiation since then she has been unable to tolerate oral intake due to taste in generalized oral pain. patient had had a PEG tube placed for supplemental nutrition. Patient presents to the emergency department tonight for worsening weakness, multiple episodes of diarrhea, and new pro ductive cough. patient was admitted to the medical unit for further evaluation and treatment of severe dehydration, electrolyte abnormalities, C diff infection with a consult to dietitian and physical and occupational therapy. patient denied any chest pain, shortness a breath, abdominal pain, fever, chills or any recent sick contacts. Patient was managed for C dif colitis, pancytopenia, neurtropenic fever, she was placed on Cefepime, vanc and Fidaxomicin however she deteriorated, repeat CT AP was negative, hwoever CXR showed possible pneumonitis. lactic 4.1 Patient was eventually transferred to ICU for septic shock and aucte hypoxemic respiratory failure. She was put on pressors and Abx changes to Meropenem and Vanc, and continued Fidaxomicin. Today, family met and decided to transition to comfort care. Comfort care was instituted and patient passed at about 1430 pm. family was present.
== END 2024-04-25 14:30 | disposition expired | DRG 371 ==
LOC: ANHED 04-20 03:20 → ANH3MEDSUR 04-20 03:55 → ANHICU 04-28 08:40 → ANHIMU 04-28 08:40
PROVIDERS: Hospitalist; Internal Medicine; Internal Medicine Hematology & Oncology; Nurse Practitioner Acute Care; Nurse Practitioner Family; Student in an Organized Health Care Education/Training Program; Admitting Provider Internal Medicine; Emergency Provider Physician Assistant; PCP Internal Medicine; Visit Provider Internal Medicine
DX: A04.72 Enterocolitis due to Clostridium difficile, not specified as recurrent (principal); A41.9 Sepsis, unspecified organism; D61.810 Antineoplastic chemotherapy induced pancytopenia; R65.21 Severe sepsis with septic shock; J96.00 Acute respiratory failure, unspecified whether with hypoxia or hypercapnia; N17.9 Acute kidney failure, unspecified; R64 Cachexia; E44.0 Moderate protein-calorie malnutrition; I74.5 Embolism and thrombosis of iliac artery; E87.1 Hypo-osmolality and hyponatremia; J98.4 Other disorders of lung; H57.02 Anisocoria; E87.6 Hypokalemia; R00.1 Bradycardia, unspecified; B95.62 Methicillin resistant Staphylococcus aureus infection as the cause of diseases classified elsewhere; R50.81 Fever presenting with conditions classified elsewhere; E86.0 Dehydration; Z20.822 Contact with and (suspected) exposure to COVID-19; K21.9 Gastro-esophageal reflux disease without esophagitis; M79.7 Fibromyalgia; I10 Essential (primary) hypertension; D50.9 Iron deficiency anemia, unspecified; I73.9 Peripheral vascular disease, unspecified; M19.90 Unspecified osteoarthritis, unspecified site; D69.59 Other secondary thrombocytopenia; T45.1X5A Adverse effect of antineoplastic and immunosuppressive drugs, initial encounter; E83.39 Other disorders of phosphorus metabolism; E83.42 Hypomagnesemia; C11.9 Malignant neoplasm of nasopharynx, unspecified; D64.81 Anemia due to antineoplastic chemotherapy; Z96.641 Presence of right artificial hip joint; F17.290 Nicotine dependence, other tobacco product, uncomplicated; Z85.048 Personal history of other malignant neoplasm of rectum, rectosigmoid junction, and anus; Z86.73 Personal history of transient ischemic attack (TIA), and cerebral infarction without residual deficits; Z95.820 Peripheral vascular angioplasty status with implants and grafts; Z90.710 Acquired absence of both cervix and uterus; Z79.82 Long term (current) use of aspirin; Z68.28 Body mass index [BMI] 28.0-28.9, adult; Z90.49 Acquired absence of other specified parts of digestive tract; Z93.1 Gastrostomy status
CPT/HCPCS: 36415; 36430; 36600; 70450; 71045; 71250; 74018; 74176; 74177; 76775; 80048; 80053; 80202; 81001; 82274; 82375; 82550; 82570; 82607; 82746; 82805; 82948; 83050; 83540; 83550; 83605; 83615; 83690; 83735; 84100; 84133; 84145; 84300; 84443; 84478; 85014; 85018; 85025; 85027; 85049; 85055; 85380; 85384; 85610; 85730; 85999; 86140; 86850; 86900; 86901; 86923; 87040; 87045; 87070; 87086; 87088; 87181; 87205; 87427; 87449; 87493; 87637; 87641; 93005; 94002; 94003; 94640; 96365; 96366; 96367; 96375; 96376; 97161; 97165; 99285; A9270; C1751; C8929; G0378; J0612; J0613; J0692; J1200; J1720; J2060; J2185; J2248; J2250; J2270; J2371; J2405; J2470; J2550; J2765; J3010; J3370; J3475; J3480; J7030; J7040; J7050; J7060; J7070; P9016; P9034; P9047; Q5101; Q9957; Q9967